=== PATIENT | female | born 1960 | race Caucasian/White ===

== ENCOUNTER → 2016-07-06 | Outpatient (CLI) | payer MEDICARE, MEDICAID ==
[~2016-07-06] MED LIST: ALBU8.5H2 IH; ALPR1TAB2 PO; ASP81TEC PO; CHLO500T2 PO; CYCL10TA9 PO; ERGO400T3 PO; FAMO20TA3 PO; FAMO20TA5 PO; FENO45CA PO; FENO48TA5 PO; FLUT1DIS26 IH; GABA600T2 PO; GBPN100C PO; GBPN300C PO; GLIP10TA13 PO; GLYB2.5T4 PO; GLYB5TAB6 PO; HYDR-34 PO; HYDR118S10 PO; INSU100I14 SQ; INSU100I29 SQ; LISI10TA PO; LORA10TA7 PO; MELO-195 PO; METF-380 PO; METH500T7 PO; MULT-608 PO; NF-PREM2.5 PO; NITR-65 PO; OMEG1CAP51 PO; OXYC-12 PO; OXYC-197 PO; PHEN-640 PO; SERT25TA PO; SERT25TA5 PO; SERT50TA2 PO; SIMV40TA4 PO; SIMV80TA3 PO; TRAM50TA2 PO; Z-PAK PO; pro air
--- OUTSIDE RECORDS SUMMARY | 2016-07-06 15:12 | XMS REPORT | Continuity of Care Document ---
Author Author [facility] Organization [facility] Address Unknown Phone Unavailable Care Team Providers Care Assistant Professor Of Marine Biology Name Role Phone Carrillo Galaviz PCP [phone] Source Comments Some departments are not documenting in the electronic medical record. If you do not see the information that you expected, contact Release of Information in the Health Information Management department at [phone] for further assistance in locating additional records.[facility] Active Allergies and Adverse Reactions No Known Allergies Current Medications Prescription Sig. Disp. Refills Start End Date Status Date ALPRAZolam (XANAX) 1 mg twice daily. 01/12/20 Active tablet 16 gabapentin (NEURONTIN) 02/06/20 Active 600 mg tablet 16 HYDROcodone/acetaminophen 01/12/20 Active (NORCO) 7.5/325 mg tablet 16 aspirin 81 mg chewable Chew 81 mg by mouth Active tablet daily. Take with food. famotidine (PEPCID) 20 mg Take 20 mg by mouth twice Active tablet daily. fenofibrate Take 48 mg by mouth Active nanocrystallized (TRICOR) daily. Take with food. 48 mg tablet fish oil /omega-3 fatty Take 1 Cap by mouth Active acids (SEA-OMEGA) daily. 340/1000 mg capsule glipiZIDE (GLUCOTROL) 10 Take 10 mg by mouth twice Active mg tablet daily. INSULIN DETEMIR (LEVEMIR Inject 50 Units under the Active SC) skin. lisinopril (PRINIVIL; Take 10 mg by mouth Active ZESTRIL) 10 mg tablet daily. meloxicam (MOBIC) 15 mg Take 15 mg by mouth Active tablet daily. metFORMIN (GLUCOPHAGE) Take 1,000 mg by mouth Active 1,000 mg tablet twice daily with meals. methocarbamol (ROBAXIN) Take 1,000 mg by mouth Active 500 mg tablet four times daily. MULTIVITAMIN PO Take by mouth. Active simvastatin (ZOCOR) 40 mg Take 80 mg by mouth at Active tablet bedtime daily. traMADol (ULTRAM) 50 mg Take 50 mg by mouth every Active tablet 6 hours as needed for Pain. ondansetron hcl (ZOFRAN) Take 8 mg by mouth every Active 8 mg tablet 8 hours as needed for Nausea or Vomiting. sertraline (ZOLOFT) 50 mg Take 50 mg by mouth Active tablet daily. CETIRIZINE HCL (ZYRTEC Take by mouth. Active PO) FLUTICASONE/SALMETEROL Inhale by mouth into the Active (ADVAIR DISKUS IN) lungs. ALBUTEROL IN Inhale by mouth into the Active lungs. INSULIN LISPRO (HUMALOG Inject under the skin. Active SC) insulin aspart (NOVOLOG Inject 10 Units under the Active FLEXPEN) 100 unit/mL skin three times daily injection PEN with meals. Active Problems Problem Noted Date Acute pain of right shoulder 06/14/2016 Osteoarthritis of spine with radiculopathy, cervical region 02/09/2016 Most Recent Encounters Date Type Specialty Providers Description 06/14/2016 Hospital Radiology Phyllis Perez MD Canceled (Error) Encounter 06/14/2016 Office Visit Neurosurgery Phyllis Perez MD Acute pain of right shoulder (Primary Dx); Osteoarthritis of spine with radiculopathy, cervical region 06/14/2016 Ancillary Radiology Outpatient, Radiologist Diagnosis unknown Orders (Primary Dx) Social History Tobacco Use Types Packs/Day Years Used Date Never Smoker Smokeless Tobacco: Never Used Alcohol Use Drinks/Week oz/Week Comments No 0 Standard 0.0 drinks or equivalent Last Filed Vital Signs Vital Sign Reading Time Taken Blood Pressure 153/76 06/14/2016 11:13 AM INSURANCE RISK ANALYST Pulse 97 06/14/2016 11:13 AM INSURANCE RISK ANALYST Temperature 36.7 C (98.1 F) 02/20/2016 7:38 AM CDT Respiratory Rate 20 06/14/2016 11:13 AM INSURANCE RISK ANALYST Height 1.626 m (5' 4") 06/14/2016 11:13 AM INSURANCE RISK ANALYST Weight 108.863 kg (240 lb) 06/14/2016 11:13 AM INSURANCE RISK ANALYST Body Mass Index 41.18 06/14/2016 11:13 AM INSURANCE RISK ANALYST Oxygen Saturation 97% 06/14/2016 11:13 AM INSURANCE RISK ANALYST Plan of Care Date Type Specialty Providers Description 03/14/2017 Appointment Phyllis Miller MD [address] [facility] [address] [place] [address] [phone] (Fax) Health Maintenance Due Date Last Done Comments Hepatitis C Screening 1959 Physical (Comprehensive) 1966 Exam Pertussis Vaccine 1970 Tetanus Vaccine 02/02/1976 Cervical Cancer Screening 02/02/1980 Breast Cancer Screening 1999 Colorectal Cancer 2009 Screening Influenza Vaccine 01/05/2016 Results from Last 3 Months Not on file
--- NOTE | 2016-07-06 16:30 | Diagnostic Imaging Report ---
PROCEDURE: MRI right joint upper extremity without contrast. TECHNIQUE: Multiplanar, multisequence non contrast-enhanced MRI of the right upper extremity was accomplished. INDICATION: Injury, shoulder pain. There are no previous studies available for comparison. FINDINGS: The study is less than optimal due to motion artifact. On the T2 fat-saturated coronal series, there is a linear area of increased signal extending through the anterior insertion of the rotator cuff. Most likely, this is related to a small tear. The supraspinatus muscle in this area is bunched but not fully retracted. There is also a broad area of increased signal within the substance of the midportion of the rotator cuff. This could be secondary to tendinosis alone. The possibility that this portion of the rotator cuff is partially torn as well should also be considered. There is hypertrophy of the acromioclavicular joint but there does not appear to be any significant narrowing of the outlet for the supraspinatus muscle. The biceps tendon and the subscapularis tendon are intact. There is a tear of the posterior labrum. The labrum itself is also thinned and most likely torn on a degenerative basis. There is a small joint effusion present. There is no abnormal signal arising from the osseous structures to suggest bone edema or a fracture. IMPRESSION: 1. The small linear area of altered signal along the anterior insertion of the rotator cuff is most likely due to a partial tear. There is also a broad less intense signal abnormality in the midportion of the rotator cuff and this may be secondary to a partial tear as well. The supraspinatus muscle is bunched but not retracted. 2. There is hypertrophy of the acromioclavicular joint but there does not appear to be any significant narrowing of the outlet for the supraspinatus muscle. 3. The labrum is torn posteriorly. There is also generalized thinning of the labrum and most likely the labrum is torn on a degenerative basis as well. 4. There is no sign of an acute bony abnormality. Dictated by: Dictated on workstation # [id number]
== END ==
LOC: RAD 15:08
PROVIDERS: ATTEND Orthopaedic Surgery
DX: S46.011A Strain of muscle(s) and tendon(s) of the rotator cuff of right shoulder, initial encounter (principal); X58.XXXA Exposure to other specified factors, initial encounter; Y99.8 Other external cause status
CPT/HCPCS: 73221

== ENCOUNTER 2016-07-18 08:59 | Outpatient (CLI) | payer MEDICARE, MEDICAID ==
[~2016-07-18] VITALS: Ht 162.6 cm; Wt 107.7 kg
[~2016-07-18 08:59] MED LIST changes: -ERGO400T3 PO; -FENO48TA5 PO; -INSU100I14 SQ; -OXYC-197 PO; -SERT25TA5 PO
--- OUTSIDE RECORDS SUMMARY | 2016-07-18 09:03 | XMS REPORT | Continuity of Care Document ---
Author Author [facility] Organization [facility] Address Unknown Phone Unavailable Care Team Providers Care Instructor Pilot Name Role Phone Carrillo Galaviz PCP [phone] Source Comments Some departments are not documenting in the electronic medical record. If you do not see the information that you expected, contact Release of Information in the Health Information Management department at [phone] for further assistance in locating additional records.[facility] Active Allergies and Adverse Reactions No [...] Taken Blood Pressure 153/76 06/14/2016 11:13 AM BRIAR WOOD SORTER Pulse 97 06/14/2016 11:13 AM BRIAR WOOD SORTER Temperature 36.7 C (98.1 F) 02/20/2016 7:38 AM CDT Respiratory Rate 20 06/14/2016 11:13 AM BRIAR WOOD SORTER Height 1.626 m (5' 4") 06/14/2016 11:13 AM BRIAR WOOD SORTER Weight 108.863 kg (240 lb) 06/14/2016 11:13 AM BRIAR WOOD SORTER Body Mass Index 41.18 06/14/2016 11:13 AM BRIAR WOOD SORTER Oxygen Saturation 97% 06/14/2016 11:13 AM BRIAR WOOD SORTER Plan of Care Date Type Specialty Providers Description 03/14/2017 Appointment Phyllis Miller MD [address] [facility] [address] [place] [address] [phone] (Fax) Health Maintenance Due Date Last Done Comments Hepatitis C Screening 1959 Physical (Comprehensive) 1966 Exam Pertussis Vaccine 1970 Tetanus Vaccine 02/02/1976 Cervical Cancer Screening 02/02/1980 Breast Cancer Screening 1999 Colorectal Cancer 2009 Screening Influenza Vaccine 01/05/2016 Results from Last 3 Months Not on file
[2016-07-18 09:08] VITALS: BP 143/81
[2016-07-18] MEDS ORDERED: SERT25TA5 PO (09:33)
[2016-07-18] MEDS ORDERED: INSU100I14 SQ (09:33)
[2016-07-18] MEDS ORDERED: FENO48TA5 PO (09:33)
[2016-07-18] MEDS ORDERED: ERGO400T3 PO (09:38)
== END 2016-07-18 09:20 | disposition home or self-care (01) ==
LOC: PREOP 08:59
PROVIDERS: ATTEND Orthopaedic Surgery
DX: Z01.818 Encounter for other preprocedural examination (principal); Z11.2 Encounter for screening for other bacterial diseases; S43.421A Sprain of right rotator cuff capsule, initial encounter; S43.431A Superior glenoid labrum lesion of right shoulder, initial encounter; W19.XXXA Unspecified fall, initial encounter; Y92.019 Unspecified place in single-family (private) house as the place of occurrence of the external cause; Y99.8 Other external cause status
CPT/HCPCS: 87081

== ENCOUNTER 2016-07-25 07:00 | Day surgery (SDC) | payer MEDICARE, MEDICAID ==
--- NOTE | 2016-07-24 07:49 | HISTORY AND PHYSICAL ---
DICTATING PHYSICIAN: Dr. Black DATE OF ADMISSION: 07/25/2016 Outpatient surgery for right shoulder arthroscopy, biceps tenotomy and rotator cuff repair. HISTORY: The patient is a 56-year-old female with complaints of pain in her right shoulder following a fall. She has undergone treatment with rest, activity modifications and anti-inflammatories without relief. She reports functional impairment. She underwent an MRI which showed a full thickness supraspinatus tear, as well as a posterior labral tear. Due to functional impairment and failure to improve with conservative measures, the patient elected to proceed with surgical intervention. REVIEW OF SYSTEMS: No chest pain, no shortness of breath. No dysuria. PAST MEDICAL HISTORY: 1. Back pain. 2. Diabetes mellitus. 3. Hyperlipidemia. 4. Hypertension. 5. Osteoarthritis. PAST SURGICAL HISTORY: 1. Lumbar spine. 2. Lumpectomy. 3. Total knee arthroplasty. 4. . FAMILY HISTORY: Ischemic heart disease and breast cancer. PRIMARY CARE PROVIDER: [facility]. MEDICATIONS: 1. Aspirin. 2. Fish oil. 3. Gabapentin. 4. Glyburide. 5. Lisinopril. 6. Meloxicam. 7. Metformin. 8. Prempro. 9. Simvastatin. 10. Trilipix. 11. Tramadol. 12. Zofran. 13. Fenofibrate. 14. Valium. 15. Levemir. 16. Albuterol. 17. Alprazolam. 18. Cetirizine. 19. Advair. 20. Glipizide. 21. Hydrocodone 22. NovoLog. 23. Humalog. 24. Methocarbamol. 25. Vitamins. 26. Sertraline. ALLERGIES: No known drug allergies. SOCIAL HISTORY: The patient denies alcohol and tobacco use. PHYSICAL EXAMINATION: The patient is well-developed, well-nourished, in no acute distress. HEENT: Normocephalic, atraumatic. Pupils are equal, round, and reactive to light. Oropharynx is clear. NECK: Supple. No lymphadenopathy. LUNGS: Clear to auscultation bilaterally. HEART: Regular rate and rhythm. ABDOMEN: Soft, nontender, nondistended. EXTREMITY EXAM: The right shoulder demonstrates no gross atrophy. No skin lesions are noted. She has intact sensation throughout her right upper extremity. She has a positive Neer and positive Wilhelm sign. She has weakness with abduction and external rotation. Active forward elevation is 170 degrees, external rotation is 70 degrees and internal rotation to L1. IMPRESSION: Right shoulder rotator cuff tear with associated labral tear. PLAN: Right shoulder arthroscopy and biceps tenotomy and rotator cuff repair. The risks, benefits, options, ramifications and recovery have been discussed at length with the patient and she understands and wishes to proceed. Job ID: [id number] Dictated Date: 07/17/2016 10:52:00 Office Services Associate Date: 07/17/2016 12:42:59/valdez
[~2016-07-25] VITALS: Ht 162.6 cm; Wt 107.7 kg
[2016-07-25 07:00] VITALS: BP 131/85
[~2016-07-25 07:00] MED LIST changes: +ERGO400T3 PO; +FENO48TA5 PO; +INSU100I14 SQ; +SERT25TA5 PO
--- NOTE | 2016-07-25 07:32 | Progress Note-Pre Operative ---
Pre-Operative Progress Note H&P Reviewed The H&P was reviewed, patient examined and no changes noted. Date H&P Reviewed: Jul 25, 2016 Time H&P Reviewed: 07:31 Pre-Operative Diagnosis: right rotator cuff and slap tears EDGARDO PADILLA MD Jul 25, 2016 07:32
--- NOTE | 2016-07-25 07:33 | Progress Note-Post Operative ---
Post-Operative Progess Note Gastroenterologist none Pre-Operative Diagnosis right rotator cuff and slap tears Post-Operative Diagnosis right rotator cuff tear right SLAP tear right shoulder labral tear and glenoid chondromalacia Post-Op Procedure Note Date of Procedure: Jul 25, 2016 Name of Procedure: right shoulder arthroscopic biceps tenotomy, labral debridement, chondroplasty of the glenoid, acromioplasty and open rotator cuff repair Anesthesia Type GETA Estimated blood loss (mL): minimal Packing: none Specimen(s) collected none EDGARDO PADILLA MD Jul 25, 2016 07:32
[2016-07-25] MEDS ORDERED: MIDAZOLAM 2 MG/2 ML (VERSED) VIAL ONE (07:42)
[2016-07-25] MEDS ORDERED: oxyCODONE/APAP 5/325MG (PERCOCET 5) TABLET PO PRN ×2 (07:45)
[2016-07-25] MEDS ORDERED: ceFAZolin 1 GM/NS 50 ML IVPB IV ONE ×2 (07:45)
[2016-07-25] MEDS ORDERED: ACETAMINOPHEN 325 MG TABLET/CAPLET (TYLENOL) PO PRN (07:45)
[2016-07-25] MEDS ORDERED: CATHETER FLUSH 10 ML SYR IV PRN (07:45)
[2016-07-25] MEDS ORDERED: ONDANSETRON 4 MG/2 ML (SDV) Z0FRAN IVP PRN (07:45)
[2016-07-25] MEDS ORDERED: BUPIVACAINE 0.25% 30 ML (SENSORCAINE) VIAL ONE (07:50)
[2016-07-25] MEDS ORDERED: morphine PF (DURAMORPH) 10 MG/10 ML AMP ONE (07:50)
[2016-07-25] MEDS: LACTATED RINGERS 1,000 ML IV PRN ×2 (07:57→09:45)
[2016-07-25] MEDS ORDERED: FAMOTIDINE 20MG/2ML IV (PEPCID) IV ONE (08:00)
[2016-07-25] MEDS ORDERED: LACTATED RINGERS 1,000 ML IV ONE ×2 (08:14→10:08)
[2016-07-25] MEDS ORDERED: proPOfol 200 MG/20 ML (DIPRIVAN) VIAL IV ONE (08:15)
[2016-07-25] MEDS ORDERED: fentaNYL INJECTION 100 MCG/2 ML AMP ONE (08:15)
[2016-07-25] MEDS ORDERED: LIDOCAINE PF 2% 10 ML (XYLOCAINE) AMP ONE (08:15)
[2016-07-25] MEDS ORDERED: ONDANSETRON 4 MG/2 ML (SDV) Z0FRAN ONE (08:15)
[2016-07-25] MEDS ORDERED: GLYCOPYRROLATE 0.2 MG/ML (ROBINUL) 2 ML VIAL ONE ×2 (08:16→09:58)
[2016-07-25] MEDS ORDERED: PHENYLEPHRINE INJ 10 MG/ML (NEO-SYNEPHRINE 1%) ONE (09:22)
[2016-07-25] MEDS ORDERED: SEVOFLURANE (ULTANE) 15 ML INHAL SOLN ONE (09:52)
[2016-07-25] MEDS ORDERED: NEOSTIGMINE (BLOXIVERZ ) 1 MG/1ML 10 ML VIAL ONE (09:58)
[2016-07-25] MEDS ORDERED: morphine INJ 10 MG/ML 1ML (SYR OR VIAL) IV PRN (10:30)
[2016-07-25] MEDS ORDERED: ONDANSETRON 4 MG/2 ML (SDV) Z0FRAN IV PRN (10:30)
[2016-07-25 11:10] VITALS: BP 112/68
[2016-07-25 11:40] VITALS: BP 120/66
--- NOTE | 2016-07-25 11:47 | OPERATIVE REPORT ---
PROCEDURE PHYSICIAN: EDGARDO PADILLA DATE OF PROCEDURE: 07/25/2016 PREOPERATIVE DIAGNOSIS: 1. Right shoulder rotator cuff tear. 2. Right shoulder SLAP tear. POSTOPERATIVE DIAGNOSIS: 1. Right shoulder rotator cuff tear. 2. Right shoulder SLAP tear. 3. Right shoulder labral tear. 4. Right shoulder chondromalacia of the glenoid PROCEDURE: 1. Right shoulder arthroscopic biceps tenotomy. 2. Right shoulder arthroscopic labral debridement. 3. Right shoulder arthroscopic chondroplasty of the glenoid/ 4. Right shoulder arthroscopic acromioplasty. 5. Right shoulder open rotator cuff repair. SURGEON: Wayne ANESTHESIA: General endotracheal plus interscalene nerve block by Katalina Aguayo CRNA ESTIMATED BLOOD LOSS: Minimal. DRAINS: None. COMPLICATIONS: None. POSTOPERATIVE PLAN: Passive range of motion for 4 weeks. The patient was transported to recovery room, awake, in stable condition. STATEMENT OF MEDICAL NECESSITY: The patient is a 56-year-old, [id number] female with complaints of right shoulder pain, worse with overhead activities. She had a fall and had increasing pain. She underwent injections without relief. An MRI revealed a full thickness supraspinatus tear and due to functional impairment and failure to improve with conservative measures, the patient elected to proceed with surgical intervention. Examination under anesthesia revealed range of motion forward elevation of 170 degrees, external rotation 80 degrees and internal rotation 70 degrees. Arthroscopic findings demonstrated type II SLAP tear. There was a flap tear of the labrum from 2 to 4 o'clock positions anteriorly. There was a grade 2 chondral flap on the inferior aspect of the glenoid in a 5 x 8 area. The humeral head demonstrated no gross chondral abnormalities. There was a 1 x 1 cm full thickness tear of the supraspinatus at the midportion of its insertion. The subacromial space demonstrated moderate bursitis with sloping of the anterior and lateral acromion. PROCEDURE: After risks and benefits of procedure were discussed and questions were answered an informed consent was signed and placed on chart. The operative site was confirmed in the preoperative holding area and initialed by the surgeon. The patient was then transported to the operating room and after adequate levels of regional plus general endotracheal anesthetic were obtained, a timeout was called confirming the operative site. Examination under anesthesia was performed with the above findings noted. The right shoulder and upper extremity were prepped and draped in the usual sterile fashion. The shoulder joint was injected with 20 mL of fluid as was the subacromial space. A standard posterior portal was placed. Under direct visualization anterior portal was created in the interval between biceps, subscapularis and glenoid. The biceps anchor was released and the stump was debrided with a shaver. The anterior labral flap was debrided with a shaver back to a stable edge. The chondromalacia on the glenoid was debrided back to a stable edge. No grade 4 changes were noted. The scope was then redirected into the subacromial space and a lateral portal was created. A bursectomy was performed and the acromion was planed a flat type I acromion. The lateral portal was then extended. The deltoid was split in line with its fibers leaving attached to the acromion. A bleeding bony bed was prepared just off the articular surface and a single corkscrew anchor was placed. A modified Tacho-Ananda repair was performed with excellent repair obtained. No undue tension was noted at the arm site. The wound was copiously irrigated. The deltoid was repaired in ejkb-[id number]-yfkf fashion using number 2 FiberWire in a [id number] interrupted fashion. The wound was further irrigated. 2-0 Vicryl was used to reapproximate subcutaneous tissue. The portal sites were closed with 4-0 nylon in simple interrupted fashion. Incision was closed with 4-0 nylon in running, alternating horizontal mattress fashion. A soft dressing and sling were applied. The patient was transported to the recovery room, awake, in stable condition. Job ID: [id number] Dictated Date: 07/25/2016 10:04:37 Cement Production Plant Operator Date: 07/25/2016 11:34:01 / valdez
--- NOTE | 2016-07-25 11:52 | Anesthesia-Peripheral Nerve Bl ---
Procedure Start/Stop Time Date of Procedure: Jul 25, 2016 Start Time: 07:59 Stop Time: 08:07 Peripheral Nerve Block Peripheral Nerve Blockade Risk/Benefits/Alternatives discussed, including IV injection leading to complications or seizures, nerve irritation or damage, pneumothorax, total spinal anesthesia, injection, and/or bleeding. Side Confirmed: RIGHT Indication: Surgical Anesthesia Specifically requested for management of pain by: Patient Condition Vital Signs Vital Signs Date Time Temp Pulse Resp B/P (MAP) Pulse Ox O2 Delivery O2 Flow Rate FiO2 07/25/16 07:00 95.9 95 18 131/85 96 Room Air Patient Condition: Awake Procedure Prepartation: Chlorhexidine Position: Supine Needle (s) Size: 22g 2" Technique: Nerve Stimulation mA: 0.45 Depth (cm): 2 Sedation Given: Midazolam Dose (mg/mcg): 2 Injectate: ropivacaine Concentration %: 0.5 Volume (ml): 30 Epinephrine used: No Narrative Injection was made incrementally with constant monitoring. Blood Aspirated: No Pain on injection noted: No Normal Resistance on injection: Yes Events Events: None:easy well tolerated Sucess: Complete Patient Conditon Post Peripheral Nerve Block Post Peripheral Nerve Block Vital Signs: Blood Pressure: Systolic Diastolic Heart Rate Blood Pressure Systolic: 131 Blood Pressure Diastolic: 85 Pulse Rate (adult): 95 LINSEY DAMIAN CRNA Jul 25, 2016 11:52
[2016-07-25 12:10] VITALS: BP 127/73
[2016-07-25] MEDS ORDERED: OXYC-197 PO (12:17)
[2016-07-25 12:55] VITALS: BP 127/73
--- OUTSIDE RECORDS SUMMARY | 2016-07-29 04:29 | XMS REPORT | Continuity of Care Document ---
Author Author [facility] Organization [facility] Address Unknown Phone Unavailable Care Team Providers Care Powerhouse Electrician Apprentice Name Role Phone Carrillo Galaviz PCP [phone] Source Comments Some departments are not documenting in the electronic medical record. If you do not see the information that you expected, contact Release of Information in the Health Information Management department at [phone] for further assistance in locating additional records.[facility] Active Allergies and Adverse Reactions No Known [...] Taken Blood Pressure 153/76 06/14/2016 11:13 AM BANJO REPAIRER Pulse 97 06/14/2016 11:13 AM BANJO REPAIRER Temperature 36.7 C (98.1 F) 02/20/2016 7:38 AM CDT Respiratory Rate 20 06/14/2016 11:13 AM BANJO REPAIRER Height 1.626 m (5' 4") 06/14/2016 11:13 AM BANJO REPAIRER Weight 108.863 kg (240 lb) 06/14/2016 11:13 AM BANJO REPAIRER Body Mass Index 41.18 06/14/2016 11:13 AM BANJO REPAIRER Oxygen Saturation 97% 06/14/2016 11:13 AM BANJO REPAIRER Plan of Care Health Maintenance Due Date Last Done Comments Hepatitis C Screening 1959 Physical (Comprehensive) 1966 Exam Pertussis Vaccine 1970 Tetanus Vaccine 02/02/1976 Cervical Cancer Screening 02/02/1980 Breast Cancer Screening 1999 Colorectal Cancer 2009 Screening Influenza Vaccine 01/04/2017 Results from Last 3 Months Not on file
--- OUTSIDE RECORDS SUMMARY | 2016-07-29 04:29 | XMS REPORT ---
Author Author AYLIN PURVIS Organization [employer] Address Unknown Phone Unavailable Care Team Providers Care Pulp Press Tender Name Role Phone AYLIN PURVIS CP Unavailable Allergies No Known Allergies Problems Problem Type Condition Code Onset Dates Condition Status Problem Diabetes type 2, controlled E11.9 Active Medications Medication Code System Code Instructions Start Date End Date Status Dosage Diflucan [facility] [address]-82 150 MG Orally once, repeat in one week Apr 13, 2015 1 tablet Results No Known Results Summary Purpose [employer] Submission
--- OUTSIDE RECORDS SUMMARY | 2016-07-29 04:35 | XMS REPORT ---
Author Author AYLIN PURVIS [facility] [employer] Address Unknown Phone Unavailable Care Team Providers Care Natural Resources Specialist Name Role Phone AYLIN PURVIS CP Unavailable Allergies, Adverse Reactions, Alerts Substance Reaction Event Type N.K.D.A. Info Not Available Non Drug Allergy Problems Problem Type Condition Code Onset Dates Condition Status Assessment Chronic fatigue R53.82 Active Assessment Diabetes type 2, uncontrolled E11.65 Active Problem Chronic fatigue R53.82 Active Problem Adjustment disorder with mixed anxiety and depressed mood F43.23 Active Problem Obstructive sleep apnea syndrome G47.33 Active Problem Diabetes type 2, controlled E11.9 Active Assessment Obstructive sleep apnea syndrome G47.33 Active Problem Type 2 diabetes mellitus without complications E11.9 Active Problem Diabetes type 2, uncontrolled E11.65 Active Medications Medication Code System Code Instructions Start Date End Date Status Dosage Lisinopril [facility] [address]-70 10 mg Apr 30, 2014 1 tablet by Oral route 1 time per day Aspirin [facility] [address]-71 81 MG Orally Once a day 1 tablet Fenofibrate [facility] [address]-99 48 MG Orally Once a day 1 tablet Fish Oil [facility] [address]-34 1000 MG Orally Once a day 2 Xanax [facility] [address]-69 1 MG Orally Twice a day November 17, 2015 1 tablet Cetirizine HCl [facility] [address]-62 10 mg Orally Once a day October 20, 2015 Feb 17, 2016 1 tablet Symbicort [facility] [address]-28 80-4.5 MCG/ACT Inhalation Twice a day 2 puffs Famotidine [facility] [address]-20 20 MG before meals July 23, 2014 1 tablet by Oral route 2 times per day Tramadol HCl [facility] [address]-32 50 MG Orally every 6 hrs 1 tablet as needed [place] [facility] [address]-21 7.5-325 MG Orally every 6 hrs August 05, 2015 1 tablet as needed Gabapentin [facility] [address]-07 600 MG Orally Three times a day Apr 08, 2015 1 capsule Levemir FlexTouch [facility] [address]-29 100 UNIT/ML Subcutaneous at bedtime 72 units Advair Diskus [facility] [address]-78 250-50 mcg/dose May 05, 2014 1 puffs by Inhalation route 2 times per day Flonase [facility] [address]-65 50 MCG/ACT Nasally Once a day Jan 17, 2015 1 spray in each nostril GlipiZIDE [facility] [address]-40 10 MG before meal July 09, 2014 1 tablet by Oral route 2 times per day Simvastatin [facility] [address]-90 80 MG Orally Jun 05, 2014 1 tablet by Oral route 1 time per day Metformin HCl [facility] [address]-88 1000 MG Orally Twice a day 1 tablet with meals Meloxicam [facility] [address]-22 15 MG Orally Once a day 1 tablet ProAir HFA [facility] [address]-25 90 mcg/actuation 4 times a day October 05, 2011 inhale 2 puffs by inhalation route every 6 hours as needed for 30 day(s) Methocarbamol [facility] [address]-68 500 MG Orally 2 times a day 2 Procedures Procedure Coding System Code Date [facility] VISIT ESTABLISHED PATIENT CPT-4 G0467 Feb 10, 2016 Office Visit, Est Pt., Level 3 CPT-4 76655 Feb 10, 2016 GLYCATED HEMOGLOBIN TEST CPT-4 46935 Feb 10, 2016 [facility] NOBLL Feb 10, 2016 VENIPUNCT, ROUTINE* CPT-4 29719 Feb 10, 2016 Vital Signs Date/Time: Feb 10, 2016 Cardiac Monitoring Heart Rate 92 bpm Weight 227 lbs Height 64 in BMI 38.96 Index Blood Pressure Diastolic 86 mmHg Blood Pressure Systolic 162 mmHg Results Name Result Date Reference Range Unit Abnormality Flag TSH ----TSH 1.810 74051559 0.450-4.500 uIU/mL CBC ----Basos 1 05038202 % ----MCV 81 57874971 79-97 fL ----Hematocrit 41.3 56848486 34.0-46.6 % ----Eos 3 52917737 % ----MCHC 31.7 11873751 31.5-35.7 g/dL ----Monocytes 9 87334767 % ----MCH 25.7 11888727 26.6-33.0 pg L ----Lymphs 38 83085280 % ----Eos (Absolute) 0.2 94004669 0.0-0.4 x10E3/uL ----WBC 6.2 34112913 3.4-10.8 x10E3/uL ----Monocytes(Absolute) 0.5 20701487 0.1-0.9 x10E3/uL ----Lymphs (Absolute) 2.3 21287466 0.7-3.1 x10E3/uL ----Hemoglobin 13.1 39682082 11.1-15.9 g/dL ----Neutrophils (Absolute) 3.0 07809705 1.4-7.0 x10E3/uL ----RBC 5.10 81183427 3.77-5.28 x10E6/uL ----Immature Grans (Abs) 0.0 39421478 0.0-0.1 x10E3/uL ----Immature Granulocytes 0 01742013 % ----Neutrophils 49 25353370 % ----Baso (Absolute) 0.0 49198588 0.0-0.2 x10E3/uL ----RDW 14.4 52681642 12.3-15.4 % ----Platelets 306 68513590 150-379 x10E3/uL A1C (IN HOUSE) ----A1C IN HOUSE 10.2 51915437 4.3 - 5.6 % ----Previous A1c 11.0 20160210 ----Lot [id number] ----Exp date [id number] ROUTINE VENIPUNCTURE VITAMIN D, 25-H ----Vitamin D, 25-Hydroxy 21.7 20160210 30.0-100.0 ng/mL L LIPID PANEL ----LDL Cholesterol Calc 78 85915945 0-99 mg/dL ----VLDL Cholesterol Yifan 27 08346564 5-40 mg/dL ----HDL Cholesterol 59 78061077 >39 mg/dL ----Triglycerides 136 01455150 0-149 mg/dL ----Cholesterol, Total 164 05216765 100-199 mg/dL CMP ----Creatinine, Serum 0.61 29271284 0.57-1.00 mg/dL ----BUN 17 17811885 6-24 mg/dL ----eGFR If Africn Am 116 97787370 >59 mL/min/1.73 ----eGFR If NonAfricn Am 101 86449498 >59 mL/min/1.73 ----Sodium, Serum 139 31212681 134-144 mmol/L ----BUN/Creatinine Ratio 28 20160210 9-23 H ----Chloride, Serum 99 48145696 97-108 mmol/L ----Potassium, Serum 4.5 34489456 3.5-5.2 mmol/L ----Carbon Dioxide, Total 24 20160210 18-29 mmol/L ----Protein, Total, Serum 6.6 36532123 6.0-8.5 g/dL ----Calcium, Serum 9.2 02264564 8.7-10.2 mg/dL ----Globulin, Total 2.1 06225683 1.5-4.5 g/dL ----Albumin, Serum 4.5 18763888 3.5-5.5 g/dL ----Bilirubin, Total 0.5 95649730 0.0-1.2 mg/dL ----Glucose, Serum 216 85490298 65-99 mg/dL H ----A/G Ratio 2.1 59179392 1.1-2.5 ----ALT (SGPT) 26 20160210 0-32 IU/L ----Alkaline Phosphatase, S 78 16848261 39-117 IU/L ----AST (SGOT) 26 20160210 0-40 IU/L Summary Purpose eClinicalWorks Submission
--- OUTSIDE RECORDS SUMMARY | 2016-07-29 04:35 | XMS REPORT | Continuity of Care Document ---
Author Author [facility] Address Unknown Phone Unavailable Allergies Active Description Code Type Severity Reaction Onset Reported/Identified Relationship to Patient Clinical Status Yes No Known Drug Allergies [id number] Drug Allergy Unknown N/ A 05/03/2011 Medications Problems Date Dx Coded Attending Type Code Diagnosis Diagnosed By 06/05/2006 Ot 715.96 06/05/2006 Ot V57.1 12/08/2007 AYLIN PURVIS APRN 413.9 Angina Nos 12/08/2007 KERNS DO, BESSIE K 413.9 Angina Nos 12/08/2007 KERNS DO, BESSIE K 413.9 Angina Nos 12/08/2007 413.9 Angina Nos 12/08/2007 413.9 Angina Nos 12/08/2007 413.9 Angina Nos 12/08/2007 413.9 Angina Nos 12/08/2007 413.9 Angina Nos 12/08/2007 413.9 Angina Nos 12/08/2007 413.9 Angina Nos 12/08/2007 413.9 Angina Nos 12/08/2007 413.9 Angina Nos 12/08/2007 AZUCENA POWELL APRN 413.9 Angina Nos 12/08/2007 KERNS DO, BESSIE K 413.9 Angina Nos 12/08/2007 KERNS DO, BESSIE K 413.9 Angina Nos 12/08/2007 AYLIN PURVIS APRN 413.9 Angina Nos 12/08/2007 KERNS DO, BESSIE K 413.9 Angina Nos 12/08/2007 AYLIN PURVIS APRN 413.9 Angina Nos 12/08/2007 KERNS DO, BESSIE K 413.9 Angina Nos 12/08/2007 AYLIN PURVIS APRN 413.9 Angina Nos 12/08/2007 AYLIN PURVIS APRN 413.9 Angina Nos 12/08/2007 KERNS DO, BESSIE K 413.9 Angina Nos 12/08/2007 KERNS DO, BESSIE K 413.9 Angina Nos 12/08/2007 MALLORIE BHAGAT MD 413.9 Angina Nos 12/08/2007 AYLIN PURVIS APRN 413.9 Angina Nos 12/08/2007 HYUN TUMBLING INSTRUCTOR, AYLIN T 413.9 Angina Nos 12/08/2007 HYUN TUMBLING INSTRUCTOR, AYLIN T 413.9 Angina Nos 12/08/2007 MADL TUMBLING INSTRUCTOR, DARIUSZ L 413.9 Angina Nos 12/08/2007 HYUN TUMBLING INSTRUCTOR, AYLIN T 413.9 Angina Nos 12/08/2007 MADL TUMBLING INSTRUCTOR, DARIUSZ L 413.9 Angina Nos 12/08/2007 HYUN TUMBLING INSTRUCTOR, AYLIN T 413.9 Angina Nos 12/08/2007 HYUN TUMBLING INSTRUCTOR, AYLIN T 413.9 Angina Nos 12/08/2007 HYUN TUMBLING INSTRUCTOR, AYLIN T 413.9 Angina Nos 12/08/2007 CARMEN TUMBLING INSTRUCTORLINSEY Montoya 413.9 Angina Nos 12/08/2007 HYUN TUMBLING INSTRUCTOR, AYLIN T 413.9 Angina Nos 12/08/2007 JESU BROWN MD 413.9 Angina Nos 12/08/2007 NEGRITA TUMBLING INSTRUCTOR, YUMI R 413.9 Angina Nos 12/08/2007 YASMIN OSUNA, DANIEL S 413.9 Angina Nos 12/08/2007 NEGRITA TUMBLING INSTRUCTOR, YUMI R 413.9 Angina Nos 12/08/2007 HYUN TUMBLING INSTRUCTOR, AYLIN T 413.9 Angina Nos 12/08/2007 YASMIN TUMBLING INSTRUCTOR, DANIEL S 413.9 Angina Nos 12/09/2007 AYLIN PURVIS APRN T 250.00 DIABETES II CONTROLLED 12/09/2007 AYLIN PURVIS APRN T 272.4 HYPERLIPIDEMIA UNSPECIFIED 12/09/2007 AYLIN PURVIS APRN 401.1 HYPERTENSION, BENIGN ESSENTIAL 12/09/2007 AYLIN PURVIS APRN 786.50 Chest Pain 12/09/2007 KERNS DO, BESSIE K 250.00 DIABETES II CONTROLLED 12/09/2007 KERNS DO, BESSIE K 272.4 HYPERLIPIDEMIA UNSPECIFIED 12/09/2007 KERNS DO, BESSIE K 401.1 HYPERTENSION, BENIGN ESSENTIAL 12/09/2007 KERNS DO, BESSIE K 786.50 Chest Pain 12/09/2007 KERNS DO, BESSIE K 250.00 DIABETES II CONTROLLED 12/09/2007 KERNS DO, BESSIE K 272.4 HYPERLIPIDEMIA UNSPECIFIED 12/09/2007 KERNS DO, BESSIE K 401.1 HYPERTENSION, BENIGN ESSENTIAL 12/09/2007 KERNS DO, BESSIE K 786.50 Chest Pain 12/09/2007 250.00 DIABETES II CONTROLLED 12/09/2007 272.4 HYPERLIPIDEMIA UNSPECIFIED 12/09/2007 401.1 HYPERTENSION, BENIGN ESSENTIAL 12/09/2007 786.50 Chest Pain 12/09/2007 250.00 DIABETES II CONTROLLED 12/09/2007 272.4 HYPERLIPIDEMIA UNSPECIFIED 12/09/2007 401.1 HYPERTENSION, BENIGN ESSENTIAL 12/09/2007 786.50 Chest Pain 12/09/2007 250.00 DIABETES II CONTROLLED 12/09/2007 272.4 HYPERLIPIDEMIA UNSPECIFIED 12/09/2007 401.1 HYPERTENSION, BENIGN ESSENTIAL 12/09/2007 786.50 Chest Pain 12/09/2007 250.00 DIABETES II CONTROLLED 12/09/2007 272.4 HYPERLIPIDEMIA UNSPECIFIED 12/09/2007 401.1 HYPERTENSION, BENIGN ESSENTIAL 12/09/2007 786.50 Chest Pain 12/09/2007 250.00 DIABETES II CONTROLLED 12/09/2007 272.4 HYPERLIPIDEMIA UNSPECIFIED 12/09/2007 401.1 HYPERTENSION, BENIGN ESSENTIAL 12/09/2007 786.50 Chest Pain 12/09/2007 250.00 DIABETES II CONTROLLED 12/09/2007 272.4 HYPERLIPIDEMIA UNSPECIFIED 12/09/2007 401.1 HYPERTENSION, BENIGN ESSENTIAL 12/09/2007 786.50 Chest Pain 12/09/2007 250.00 DIABETES II CONTROLLED 12/09/2007 272.4 HYPERLIPIDEMIA UNSPECIFIED 12/09/2007 401.1 HYPERTENSION, BENIGN ESSENTIAL 12/09/2007 786.50 Chest Pain 12/09/2007 250.00 DIABETES II CONTROLLED 12/09/2007 272.4 HYPERLIPIDEMIA UNSPECIFIED 12/09/2007 401.1 HYPERTENSION, BENIGN ESSENTIAL 12/09/2007 786.50 Chest Pain 12/09/2007 250.00 DIABETES II CONTROLLED 12/09/2007 272.4 HYPERLIPIDEMIA UNSPECIFIED 12/09/2007 401.1 HYPERTENSION, BENIGN ESSENTIAL 12/09/2007 786.50 Chest Pain 12/09/2007 ANDRE APRN, AZUCENA A 250.00 DIABETES II CONTROLLED 12/09/2007 ANDRE OSUNA AZUCENA A 272.4 HYPERLIPIDEMIA UNSPECIFIED 12/09/2007 ANDRE OSUNA AZUCENA A 401.1 HYPERTENSION, BENIGN ESSENTIAL 12/09/2007 ANDRE OSUNA AZUCENA A 786.50 Chest Pain 12/09/2007 KERNS DO, BESSIE K 250.00 DIABETES II CONTROLLED 12/09/2007 KERNS DO BESSIE K 272.4 HYPERLIPIDEMIA UNSPECIFIED 12/09/2007 KERNS DO, BESSIE K 401.1 HYPERTENSION, BENIGN ESSENTIAL 12/09/2007 KERNS DO, BESSIE K 786.50 Chest Pain 12/09/2007 KERNS DO, BESSIE K 250.00 DIABETES II CONTROLLED 12/09/2007 KERNS DO, BESSIE K 272.4 HYPERLIPIDEMIA UNSPECIFIED 12/09/2007 KERNS DO, BESSIE K 401.1 HYPERTENSION, BENIGN ESSENTIAL 12/09/2007 KERNS DO, BESSIE K 786.50 Chest Pain 12/09/2007 HYUN OSUNA AYLIN T 250.00 DIABETES II CONTROLLED 12/09/2007 HYUN TUMBLING INSTRUCTORAYLIN T 272.4 HYPERLIPIDEMIA UNSPECIFIED 12/09/2007 HYUN DE LOS SANTOSNAYLIN T 401.1 HYPERTENSION, BENIGN ESSENTIAL 12/09/2007 AYLIN PURVIS APRN T 786.50 Chest Pain 12/09/2007 KERNS DO, BESSIE K 250.00 DIABETES II CONTROLLED 12/09/2007 KERNS DO, BESSIE K 272.4 HYPERLIPIDEMIA UNSPECIFIED 12/09/2007 KERNS DO, BESSIE K 401.1 HYPERTENSION, BENIGN ESSENTIAL 12/09/2007 KERNS DO, BESSIE K 786.50 Chest Pain 12/09/2007 AYLIN PURVIS APRN T 250.00 DIABETES II CONTROLLED 12/09/2007 AYLIN PURVIS APRN T 272.4 HYPERLIPIDEMIA UNSPECIFIED 12/09/2007 AYLIN PURVIS APRN T 401.1 HYPERTENSION, BENIGN ESSENTIAL 12/09/2007 AYLIN PURVIS APRN T 786.50 Chest Pain 12/09/2007 KERNS DO, BESSIE K 250.00 DIABETES II CONTROLLED 12/09/2007 KERNS DO, BESSIE K 272.4 HYPERLIPIDEMIA UNSPECIFIED 12/09/2007 KERNS DO, BESSIE K 401.1 HYPERTENSION, BENIGN ESSENTIAL 12/09/2007 KERNS DO, BESSIE K 786.50 Chest Pain 12/09/2007 AYLIN PURVIS APRN T 250.00 DIABETES II CONTROLLED 12/09/2007 HYUN DE LOS SANTOSNAYLIN T 272.4 HYPERLIPIDEMIA UNSPECIFIED 12/09/2007 AYLIN PURVIS APRN T 401.1 HYPERTENSION, BENIGN ESSENTIAL 12/09/2007 AYLIN PURVIS APRN T 786.50 Chest Pain 12/09/2007 AYLIN PURVIS APRN T 250.00 DIABETES II CONTROLLED 12/09/2007 AYLIN PURVIS APRN T 272.4 HYPERLIPIDEMIA UNSPECIFIED 12/09/2007 AYLIN PURVIS APRN T 401.1 HYPERTENSION, BENIGN ESSENTIAL 12/09/2007 AYLIN PURVIS APRN 786.50 Chest Pain 12/09/2007 KERNS DO, BESSIE K 250.00 DIABETES II CONTROLLED 12/09/2007 KERNS DO, BESSIE K 272.4 HYPERLIPIDEMIA UNSPECIFIED 12/09/2007 KERNS DO, BESSIE K 401.1 HYPERTENSION, BENIGN ESSENTIAL 12/09/2007 KERNS DO, BESISE K 786.50 Chest Pain 12/09/2007 KERNS DO, BESSIE K 250.00 DIABETES II CONTROLLED 12/09/2007 KERNS DO, BESSIE K 272.4 HYPERLIPIDEMIA UNSPECIFIED 12/09/2007 KERNS DO, BESSIE K 401.1 HYPERTENSION, BENIGN ESSENTIAL 12/09/2007 KERNS DO, BESSIE K 786.50 Chest Pain 12/09/2007 MALLORIE BHAGAT MD 250.00 DIABETES II CONTROLLED 12/09/2007 MALLORIE BHAGAT MD 272.4 HYPERLIPIDEMIA UNSPECIFIED 12/09/2007 MALLORIE BHAGAT MD 401.1 HYPERTENSION, BENIGN ESSENTIAL 12/09/2007 MALLORIE BHAGAT MD 786.50 Chest Pain 12/09/2007 AYLIN PURVIS APRN 250.00 DIABETES II CONTROLLED 12/09/2007 AYLIN PURVIS APRN 272.4 HYPERLIPIDEMIA UNSPECIFIED 12/09/2007 AYLIN PURVIS APRN 401.1 HYPERTENSION, BENIGN ESSENTIAL 12/09/2007 AYLIN PURVIS APRN 786.50 Chest Pain 12/09/2007 AYLIN PURVIS APRN 250.00 DIABETES II CONTROLLED 12/09/2007 AYLIN PURVIS APRN 272.4 HYPERLIPIDEMIA UNSPECIFIED 12/09/2007 AYLIN PURVIS APRN 401.1 HYPERTENSION, BENIGN ESSENTIAL 12/09/2007 AYLIN PURVSI APRN 786.50 Chest Pain 12/09/2007 AYLIN PURVIS APRN 250.00 DIABETES II CONTROLLED 12/09/2007 AYLIN PURVIS APRN T 272.4 HYPERLIPIDEMIA UNSPECIFIED 12/09/2007 AYLIN PURVIS APRN 401.1 HYPERTENSION, BENIGN ESSENTIAL 12/09/2007 AYLIN PURVIS APRN T 786.50 Chest Pain 12/09/2007 MADL TUMBLING INSTRUCTOR, DARIUSZ L 250.00 DIABETES II CONTROLLED 12/09/2007 MADL TUMBLING INSTRUCTOR, DARIUSZ L 272.4 HYPERLIPIDEMIA UNSPECIFIED 12/09/2007 MADL TUMBLING INSTRUCTOR, DARIUSZ L 401.1 HYPERTENSION, BENIGN ESSENTIAL 12/09/2007 MADL TUMBLING INSTRUCTOR, DARIUSZ L 786.50 Chest Pain 12/09/2007 AYLIN PURVIS APRN T 250.00 DIABETES II CONTROLLED 12/09/2007 AYLIN PURVIS APRN T 272.4 HYPERLIPIDEMIA UNSPECIFIED 12/09/2007 HYUN DE LOS SANTOSNAYLIN T 401.1 HYPERTENSION, BENIGN ESSENTIAL 12/09/2007 HYUN TUMBLING INSTRUCTORAYLIN T 786.50 Chest Pain 12/09/2007 MADL TUMBLING INSTRUCTOR, DARIUSZ L 250.00 DIABETES II CONTROLLED 12/09/2007 MADL TUMBLING INSTRUCTOR, DARIUSZ L 272.4 HYPERLIPIDEMIA UNSPECIFIED 12/09/2007 MADL TUMBLING INSTRUCTOR, DARIUSZ L 401.1 HYPERTENSION, BENIGN ESSENTIAL 12/09/2007 MADL TUMBLING INSTRUCTOR, DARIUSZ L 786.50 Chest Pain 12/09/2007 AYLIN PURVIS APRN T 250.00 DIABETES II CONTROLLED 12/09/2007 AYLIN PURVIS APRN 272.4 HYPERLIPIDEMIA UNSPECIFIED 12/09/2007 AYLIN PURVIS APRN 401.1 HYPERTENSION, BENIGN ESSENTIAL 12/09/2007 AYLIN PURVIS APRN 786.50 Chest Pain 12/09/2007 AYLIN PURVIS APRN 250.00 DIABETES II CONTROLLED 12/09/2007 AYLIN PURVIS APRN 272.4 HYPERLIPIDEMIA UNSPECIFIED 12/09/2007 AYLIN PURVIS APRN 401.1 HYPERTENSION, BENIGN ESSENTIAL 12/09/2007 AYLIN PURIVS APRN 786.50 Chest Pain 12/09/2007 AYLIN PURVIS APRN 250.00 DIABETES II CONTROLLED 12/09/2007 AYLNI PURVIS APRN 272.4 HYPERLIPIDEMIA UNSPECIFIED 12/09/2007 AYLIN PURVIS APRN 401.1 HYPERTENSION, BENIGN ESSENTIAL 12/09/2007 AYLIN PURVIS APRN T 786.50 Chest Pain 12/09/2007 LINSEY MORALES APRN 250.00 DIABETES II CONTROLLED 12/09/2007 LINSEY MORALES APRN 272.4 HYPERLIPIDEMIA UNSPECIFIED 12/09/2007 LINSEY MORALES APRN 401.1 HYPERTENSION, BENIGN ESSENTIAL 12/09/2007 LINSEY MORALES APRN D 786.50 Chest Pain 12/09/2007 AYLIN PURVIS APRN T 250.00 DIABETES II CONTROLLED 12/09/2007 AYLIN PURVIS APRN 272.4 HYPERLIPIDEMIA UNSPECIFIED 12/09/2007 AYLIN PURVIS APRN 401.1 HYPERTENSION, BENIGN ESSENTIAL 12/09/2007 AYLIN PURVIS APRN T 786.50 Chest Pain 12/09/2007 KEVIN MICHELLE, JESU 250.00 DIABETES II CONTROLLED 12/09/2007 KEVIN MICHELLE, JESU 272.4 HYPERLIPIDEMIA UNSPECIFIED 12/09/2007 KEVIN MICHELLE, JESU 401.1 HYPERTENSION, BENIGN ESSENTIAL 12/09/2007 KEVIN MICHELLE, JESU 786.50 Chest Pain 12/09/2007 NEGRITA TUMBLING INSTRUCTOR, YUMI R 250.00 DIABETES II CONTROLLED 12/09/2007 NEGRITA TUMBLING INSTRUCTOR, YUMI R 272.4 HYPERLIPIDEMIA UNSPECIFIED 12/09/2007 NEGRITA TUMBLING INSTRUCTOR, YUMI R 401.1 HYPERTENSION, BENIGN ESSENTIAL 12/09/2007 NEGRITA TUMBLING INSTRUCTOR, YUMI R 786.50 Chest Pain 12/09/2007 YASMIN TUMBLING INSTRUCTOR, DANIEL S 250.00 DIABETES II CONTROLLED 12/09/2007 YASMIN TUMBLING INSTRUCTOR, DANIEL S 272.4 HYPERLIPIDEMIA UNSPECIFIED 12/09/2007 YASMIN TUMBLING INSTRUCTOR, DANIEL S 401.1 HYPERTENSION, BENIGN ESSENTIAL 12/09/2007 YASMIN TUMBLING INSTRUCTOR, DANIEL S 786.50 Chest Pain 12/09/2007 NEGRITA TUMBLING INSTRUCTOR, YUMI R 250.00 DIABETES II CONTROLLED 12/09/2007 NEGRITA TUMBLING INSTRUCTOR, YUMI R 272.4 HYPERLIPIDEMIA UNSPECIFIED 12/09/2007 NEGRITA TUMBLING INSTRUCTOR, YUMI R 401.1 HYPERTENSION, BENIGN ESSENTIAL 12/09/2007 NEGRITA TUMBLING INSTRUCTOR, YUMI R 786.50 Chest Pain 12/09/2007 AYLIN PURVIS APRN T 250.00 DIABETES II CONTROLLED 12/09/2007 AYLIN PURVIS APRN 272.4 HYPERLIPIDEMIA UNSPECIFIED 12/09/2007 AYLIN PURVIS APRN 401.1 HYPERTENSION, BENIGN ESSENTIAL 12/09/2007 AYLIN PURVIS APRN 786.50 Chest Pain 12/09/2007 YASMIN OSUNA, DANIEL S 250.00 DIABETES II CONTROLLED 12/09/2007 YASMIN OSUNA, DANIEL S 272.4 HYPERLIPIDEMIA UNSPECIFIED 12/09/2007 YASMIN OSUNA, DANIEL S 401.1 HYPERTENSION, BENIGN ESSENTIAL 12/09/2007 YASMIN OSUNA, DANIEL S 786.50 Chest Pain 04/17/2008 AYLIN PURVIS APRN 461.9 Sinusitis Acute 04/17/2008 AYLIN PURVIS APRN 465.9 Upper Respiratory Infection 04/17/2008 AYLIN PURVIS APRN 786.2 Cough 04/17/2008 KERNS DO, BESSIE K 461.9 Sinusitis Acute 04/17/2008 KERNS DO, BESSIE K 465.9 Upper Respiratory Infection 04/17/2008 KERNS DO, BESSIE K 786.2 Cough 04/17/2008 KERNS DO, BESSIE K 461.9 Sinusitis Acute 04/17/2008 KERNS DO, BESSIE K 465.9 Upper Respiratory Infection 04/17/2008 KERNS DO, BESSIE K 786.2 Cough 04/17/2008 461.9 Sinusitis Acute 04/17/2008 465.9 Upper Respiratory Infection 04/17/2008 786.2 Cough 04/17/2008 461.9 Sinusitis Acute 04/17/2008 465.9 Upper Respiratory Infection 04/17/2008 786.2 Cough 04/17/2008 461.9 Sinusitis Acute 04/17/2008 465.9 Upper Respiratory Infection 04/17/2008 786.2 Cough 04/17/2008 461.9 Sinusitis Acute 04/17/2008 465.9 Upper Respiratory Infection 04/17/2008 786.2 Cough 04/17/2008 461.9 Sinusitis Acute 04/17/2008 465.9 Upper Respiratory Infection 04/17/2008 786.2 Cough 04/17/2008 461.9 Sinusitis Acute 04/17/2008 465.9 Upper Respiratory Infection 04/17/2008 786.2 Cough 04/17/2008 461.9 Sinusitis Acute 04/17/2008 465.9 Upper Respiratory Infection 04/17/2008 786.2 Cough 04/17/2008 461.9 Sinusitis Acute 04/17/2008 465.9 Upper Respiratory Infection 04/17/2008 786.2 Cough 04/17/2008 461.9 Sinusitis Acute 04/17/2008 465.9 Upper Respiratory Infection 04/17/2008 786.2 Cough 04/17/2008 ANDRE TUMBLING INSTRUCTOR, AZUCENA A 461.9 Sinusitis Acute 04/17/2008 ANDRE TUMBLING INSTRUCTOR AZUCENA A 465.9 Upper Respiratory Infection 04/17/2008 ANDRE TUMBLING INSTRUCTOR, AZUCENA A 786.2 Cough 04/17/2008 KERNS DO BESSIE K 461.9 Sinusitis Acute 04/17/2008 KERNS DO, BESSIE K 465.9 Upper Respiratory Infection 04/17/2008 KERNS DO, BESSIE K 786.2 Cough 04/17/2008 KERNS DO, BESSIE K 461.9 Sinusitis Acute 04/17/2008 KERNS DO, BESSIE K 465.9 Upper Respiratory Infection 04/17/2008 KERNS DO, BESSIE K 786.2 Cough 04/17/2008 AYLIN PURVIS APRN T 461.9 Sinusitis Acute 04/17/2008 AYLIN PURVIS APRN T 465.9 Upper Respiratory Infection 04/17/2008 AYLIN PURVIS APRN T 786.2 Cough 04/17/2008 KERNS DO, BESSIE K 461.9 Sinusitis Acute 04/17/2008 KERNS DO, BESSIE K 465.9 Upper Respiratory Infection 04/17/2008 KERNS DO, BESSIE K 786.2 Cough 04/17/2008 AYLIN PURVIS APRN T 461.9 Sinusitis Acute 04/17/2008 AYLIN PURVIS APRN T 465.9 Upper Respiratory Infection 04/17/2008 AYLIN PURVIS APRN T 786.2 Cough 04/17/2008 KERNS DO, BESSIE K 461.9 Sinusitis Acute 04/17/2008 KERNS DO, BESSIE K 465.9 Upper Respiratory Infection 04/17/2008 KERNS DO, BESSIE K 786.2 Cough 04/17/2008 AYLIN PURVIS APRN T 461.9 Sinusitis Acute 04/17/2008 AYLIN PURVIS APRN T 465.9 Upper Respiratory Infection 04/17/2008 AYLIN PURVIS APRN T 786.2 Cough 04/17/2008 AYLIN PURVIS APRN T 461.9 Sinusitis Acute 04/17/2008 AYLIN PURVIS APRN T 465.9 Upper Respiratory Infection 04/17/2008 AYLIN PURVIS APRN T 786.2 Cough 04/17/2008 KERNS DO, BESSIE K 461.9 Sinusitis Acute 04/17/2008 KERNS DO, BESSIE K 465.9 Upper Respiratory Infection 04/17/2008 KERNS DO, BESSIE K 786.2 Cough 04/17/2008 KERNS DO, BESSIE K 461.9 Sinusitis Acute 04/17/2008 KERNS DO, BESSIE K 465.9 Upper Respiratory Infection 04/17/2008 KERNS DO, BESSIE K 786.2 Cough 04/17/2008 MALLORIE BHAGAT MD 461.9 Sinusitis Acute 04/17/2008 MALLORIE BHAGAT MD 465.9 Upper Respiratory Infection 04/17/2008 MALLORIE BHAGAT MD 786.2 Cough 04/17/2008 HYUN TUMBLING INSTRUCTOR, AYLIN T 461.9 Sinusitis Acute 04/17/2008 HYUN TUMBLING INSTRUCTOR, AYLIN T 465.9 Upper Respiratory Infection 04/17/2008 HYUN TUMBLING INSTRUCTOR, AYLIN T 786.2 Cough 04/17/2008 HYUN TUMBLING INSTRUCTOR, AYLIN T 461.9 Sinusitis Acute 04/17/2008 HYUN TUMBLING INSTRUCTOR, AYLIN T 465.9 Upper Respiratory Infection 04/17/2008 HYUN TUMBLING INSTRUCTOR, AYLIN T 786.2 Cough 04/17/2008 HYUN TUMBLING INSTRUCTOR, AYLIN T 461.9 Sinusitis Acute 04/17/2008 HYUN TUMBLING INSTRUCTOR, AYLIN T 465.9 Upper Respiratory Infection 04/17/2008 HYUN TUMBLING INSTRUCTOR, AYLIN T 786.2 Cough 04/17/2008 MADL TUMBLING INSTRUCTOR, DARIUSZ L 461.9 Sinusitis Acute 04/17/2008 MADL TUMBLING INSTRUCTOR, DARIUSZ L 465.9 Upper Respiratory Infection 04/17/2008 MADL TUMBLING INSTRUCTOR, DARIUSZ L 786.2 Cough 04/17/2008 HYUN DE LOS SANTOSN AYLIN T 461.9 Sinusitis Acute 04/17/2008 HYUN TUMBLING INSTRUCTOR, AYLIN T 465.9 Upper Respiratory Infection 04/17/2008 HYUN TUMBLING INSTRUCTOR, AYLIN T 786.2 Cough 04/17/2008 MADL TUMBLING INSTRUCTOR, DARIUSZ L 461.9 Sinusitis Acute 04/17/2008 MADL TUMBLING INSTRUCTOR, DARIUSZ L 465.9 Upper Respiratory Infection 04/17/2008 MADL TUMBLING INSTRUCTOR, DARIUSZ L 786.2 Cough 04/17/2008 HYUN TUMBLING INSTRUCTOR, AYLIN T 461.9 Sinusitis Acute 04/17/2008 HYUN DE LOS SANTOSN, AYLIN T 465.9 Upper Respiratory Infection 04/17/2008 HYUN TUMBLING INSTRUCTOR AYLIN T 786.2 Cough 04/17/2008 HYUN TUMBLING INSTRUCTOR, AYLIN T 461.9 Sinusitis Acute 04/17/2008 HYUN TUMBLING INSTRUCTOR, AYLIN T 465.9 Upper Respiratory Infection 04/17/2008 HYUN TUMBLING INSTRUCTOR, AYLIN T 786.2 Cough 04/17/2008 HYUN TUMBLING INSTRUCTOR, AYLIN T 461.9 Sinusitis Acute 04/17/2008 HYUN TUMBLING INSTRUCTOR, AYLIN T 465.9 Upper Respiratory Infection 04/17/2008 HYUN DE LOS SANTOSN, AYLIN T 786.2 Cough 04/17/2008 LINSEY MORALES APRN 461.9 Sinusitis Acute 04/17/2008 MORALES TUMBLING INSTRUCTOR, LINSEY D 465.9 Upper Respiratory Infection 04/17/2008 CARMEN OSUNA, LINSEY D 786.2 Cough 04/17/2008 AYLIN PURVIS APRN T 461.9 Sinusitis Acute 04/17/2008 AYLIN PURVIS APRN T 465.9 Upper Respiratory Infection 04/17/2008 AYLIN PURVIS APRN T 786.2 Cough 04/17/2008 KEVIN MICHELLE, JESU 461.9 Sinusitis Acute 04/17/2008 KEVIN MICHELLE, JESU 465.9 Upper Respiratory Infection 04/17/2008 KEVIN MICHELLE, JESU 786.2 Cough 04/17/2008 NEGRITA TUMBLING INSTRUCTOR, YUMI R 461.9 Sinusitis Acute 04/17/2008 NEGRITA TUMBLING INSTRUCTOR, YUMI R 465.9 Upper Respiratory Infection 04/17/2008 NEGRITA TUMBLING INSTRUCTOR, YUMI R 786.2 Cough 04/17/2008 YASMIN OSUNA, DANIEL S 461.9 Sinusitis Acute 04/17/2008 YASMIN OSUNA, DANIEL S 465.9 Upper Respiratory Infection 04/17/2008 YASMIN OSUNA DANIEL S 786.2 Cough 04/17/2008 NEGRITA TUMBLING INSTRUCTOR, YUMI R 461.9 Sinusitis Acute 04/17/2008 NEGRITA TUMBLING INSTRUCTOR, YUMI R 465.9 Upper Respiratory Infection 04/17/2008 NEGRITA TUMBLING INSTRUCTOR, YUMI R 786.2 Cough 04/17/2008 AYLIN PURVIS APRN T 461.9 Sinusitis Acute 04/17/2008 AYLIN PURVIS APRN T 465.9 Upper Respiratory Infection 04/17/2008 AYLIN PURVIS APRN T 786.2 Cough 04/17/2008 YASMIN OSUNA DANIEL S 461.9 Sinusitis Acute 04/17/2008 YASMIN OSUNA, DANIEL S 465.9 Upper Respiratory Infection 04/17/2008 YASMIN OSUNA, DANIEL S 786.2 Cough 07/06/2008 AYLIN PURVIS APRN 599.0 Urinary Tract Infection 07/06/2008 AYLIN PURVIS APRN 724.2 lower back pain 07/06/2008 KERNS DO, BESSIE K 599.0 Urinary Tract Infection 07/06/2008 KERNS DO, BESSIE K 724.2 lower back pain 07/06/2008 KERNS DO, BESSIE K 599.0 Urinary Tract Infection 07/06/2008 KERNS DO, BESSIE K 724.2 lower back pain 07/06/2008 599.0 Urinary Tract Infection 07/06/2008 724.2 lower back pain 07/06/2008 599.0 Urinary Tract Infection 07/06/2008 724.2 lower back pain 07/06/2008 599.0 Urinary Tract Infection 07/06/2008 724.2 lower back pain 07/06/2008 599.0 Urinary Tract Infection 07/06/2008 724.2 lower back pain 07/06/2008 599.0 Urinary Tract Infection 07/06/2008 724.2 lower back pain 07/06/2008 599.0 Urinary Tract Infection 07/06/2008 724.2 lower back pain 07/06/2008 599.0 Urinary Tract Infection 07/06/2008 724.2 lower back pain 07/06/2008 599.0 Urinary Tract Infection 07/06/2008 724.2 lower back pain 07/06/2008 599.0 Urinary Tract Infection 07/06/2008 724.2 lower back pain 07/06/2008 ANDRE OSUNA AZUCENA A 599.0 Urinary Tract Infection 07/06/2008 ANDREHUMBERTO OSUNA AZUCENA A 724.2 lower back pain 07/06/2008 KERNS DO, BESSIE K 599.0 Urinary Tract Infection 07/06/2008 KERNS DO, BESSIE K 724.2 lower back pain 07/06/2008 KERNS DO, BESSIE K 599.0 Urinary Tract Infection 07/06/2008 KERNS DO, BESSIE K 724.2 lower back pain 07/06/2008 AYLIN PURVIS APRN 599.0 Urinary Tract Infection 07/06/2008 AYLIN PURVIS APRN 724.2 lower back pain 07/06/2008 KERNS DO, BESSIE K 599.0 Urinary Tract Infection 07/06/2008 KERNS DO, BESSIE K 724.2 lower back pain 07/06/2008 AYLIN PURVIS APRN 599.0 Urinary Tract Infection 07/06/2008 AYLIN PRUVIS APRN 724.2 lower back pain 07/06/2008 KERNS DO, BESSIE K 599.0 Urinary Tract Infection 07/06/2008 KERNS DO, BESSIE K 724.2 lower back pain 07/06/2008 HYUN TUMBLING INSTRUCTOR, AYLIN T 599.0 Urinary Tract Infection 07/06/2008 AYLIN PURVIS APRN T 724.2 lower back pain 07/06/2008 AYLIN PURVIS APRN T 599.0 Urinary Tract Infection 07/06/2008 AYLIN PURVIS APRN T 724.2 lower back pain 07/06/2008 KERNS DO, BESSIE K 599.0 Urinary Tract Infection 07/06/2008 KERNS DO, BESSIE K 724.2 lower back pain 07/06/2008 KERNS DO, BESSIE K 599.0 Urinary Tract Infection 07/06/2008 KERNS DO, BESSIE K 724.2 lower back pain 07/06/2008 MALLORIE BHAGAT MD 599.0 Urinary Tract Infection 07/06/2008 MALLORIE BHAGAT MD 724.2 lower back pain 07/06/2008 AYLIN PURVIS APRN T 599.0 Urinary Tract Infection 07/06/2008 AYLIN PURVIS APRN T 724.2 lower back pain 07/06/2008 AYLIN PURVIS APRN 599.0 Urinary Tract Infection 07/06/2008 AYLIN PURVIS APRN T 724.2 lower back pain 07/06/2008 AYLIN PURVIS APRN T 599.0 Urinary Tract Infection 07/06/2008 AYLIN PURVIS APRN T 724.2 LOWER BACK PAIN 07/06/2008 MADMaine TUMBLING INSTRUCTOR, DARIUSZ L 599.0 Urinary Tract Infection 07/06/2008 MADL TUMBLING INSTRUCTOR, DARIUSZ L 724.2 LOWER BACK PAIN 07/06/2008 AYLIN PURVIS APRN T 599.0 Urinary Tract Infection 07/06/2008 AYLIN PURVIS APRN T 724.2 LOWER BACK PAIN 07/06/2008 MADL TUMBLING INSTRUCTOR, DARIUSZ L 599.0 Urinary Tract Infection 07/06/2008 MADL TUMBLING INSTRUCTOR, DARIUSZ L 724.2 LOWER BACK PAIN 07/06/2008 AYLIN PURVIS APRN T 599.0 Urinary Tract Infection 07/06/2008 AYLIN PURVIS APRN T 724.2 LOWER BACK PAIN 07/06/2008 AYLIN PURVIS APRN T 599.0 Urinary Tract Infection 07/06/2008 AYLIN PURVIS APRN T 724.2 LOWER BACK PAIN 07/06/2008 AYLIN PURVIS APRN T 599.0 Urinary Tract Infection 07/06/2008 AYLIN PURVIS APRN T 724.2 LOWER BACK PAIN 07/06/2008 MORALES TUMBLING INSTRUCTOR, LINSEY D 599.0 Urinary Tract Infection 07/06/2008 MORALES TUMBLING INSTRUCTOR, LINSEY D 724.2 LOWER BACK PAIN 07/06/2008 HYUN OSUNA, AYLIN T 599.0 Urinary Tract Infection 07/06/2008 HYUN OSUNA, AYLIN T 724.2 LOWER BACK PAIN 07/06/2008 KEVIN MICHELLE, JESU 599.0 Urinary Tract Infection 07/06/2008 KEVIN MICHELLE, JESU 724.2 LOWER BACK PAIN 07/06/2008 NEGRITA TUMBLING INSTRUCTOR, YUMI R 599.0 Urinary Tract Infection 07/06/2008 NEGRITA TUMBLING INSTRUCTOR, YUMI R 724.2 LOWER BACK PAIN 07/06/2008 AYSMIN TUMBLING INSTRUCTOR, DANIEL S 599.0 Urinary Tract Infection 07/06/2008 YASMIN TUMBLING INSTRUCTOR, DANIEL S 724.2 LOWER BACK PAIN 07/06/2008 NEGRITA TUMBLING INSTRUCTOR, YUMI R 599.0 Urinary Tract Infection 07/06/2008 NEGRITA DE LOS SANTOSN, YUMI R 724.2 LOWER BACK PAIN 07/06/2008 AYLIN PURVIS APRN T 599.0 Urinary Tract Infection 07/06/2008 HYUN OSUNA, AYLIN T 724.2 LOWER BACK PAIN 07/06/2008 YASMINKENISHA OSUNA, DANIEL S 599.0 Urinary Tract Infection 07/06/2008 YASMIN DE LOS SANTOSN, DANIEL S 724.2 LOWER BACK PAIN 01/13/2009 AYLIN PURVIS APRN 487.1 Influenza 01/13/2009 BESSIE KERNS DO 487.1 Influenza 01/13/2009 BESSIE KERNS DO 487.1 Influenza 01/13/2009 487.1 Influenza 01/13/2009 487.1 Influenza 01/13/2009 487.1 Influenza 01/13/2009 487.1 Influenza 01/13/2009 487.1 Influenza 01/13/2009 487.1 Influenza 01/13/2009 487.1 Influenza 01/13/2009 487.1 Influenza 01/13/2009 487.1 Influenza 01/13/2009 AZUCENA POWELL APRN 487.1 Influenza 01/13/2009 BESSIE KERNS DO 487.1 Influenza 01/13/2009 EKRNS DO, BESSIE K 487.1 Influenza 01/13/2009 HYUN TUMBLING INSTRUCTOR, AYLIN T 487.1 Influenza 01/13/2009 KERNS DO, BESSIE K 487.1 Influenza 01/13/2009 HYUN TUMBLING INSTRUCTOR, AYLIN T 487.1 Influenza 01/13/2009 KERNS DO, BESSIE K 487.1 Influenza 01/13/2009 HYUN TUMBLING INSTRUCTOR, AYLIN T 487.1 Influenza 01/13/2009 HYUN TUMBLING INSTRUCTOR, AYLIN T 487.1 Influenza 01/13/2009 KERNS DO, BESSIE K 487.1 Influenza 01/13/2009 KERNS DO, BESSIE K 487.1 Influenza 01/13/2009 MALLORIE BHAGAT MD 487.1 Influenza 01/13/2009 HYUN TUMBLING INSTRUCTOR, AYLIN T 487.1 Influenza 01/13/2009 HYUN TUMBLING INSTRUCTOR, AYLIN T 487.1 Influenza 01/13/2009 HYUN TUMBLING INSTRUCTOR, AYLIN T 487.1 Influenza 01/13/2009 MADL TUMBLING INSTRUCTOR, DARIUSZ L 487.1 Influenza 01/13/2009 AYLIN PURVIS APRN T 487.1 Influenza 01/13/2009 MADL TUMBLING INSTRUCTOR, DARIUSZ L 487.1 Influenza 01/13/2009 HYUN TUMBLING INSTRUCTOR, AYLIN T 487.1 Influenza 01/13/2009 HYUN TUMBLING INSTRUCTOR, AYLIN T 487.1 Influenza 01/13/2009 HYUN TUMBLING INSTRUCTOR, AYLIN T 487.1 Influenza 01/13/2009 MORALES TUMBLING INSTRUCTOR, LINSEY Douglass 487.1 Influenza 01/13/2009 HYUN TUMBLING INSTRUCTOR, AYLIN T 487.1 Influenza 01/13/2009 JESU BROWN MD 487.1 Influenza 01/13/2009 NEGRITA TUMBLING INSTRUCTOR, YUMI R 487.1 Influenza 01/13/2009 YASMIN TUMBLING INSTRUCTOR, DANIEL S 487.1 Influenza 01/13/2009 NEGRITA TUMBLING INSTRUCTOR, YUMI R 487.1 Influenza 01/13/2009 HYUN TUMBLING INSTRUCTORAYLIN Montoya T 487.1 Influenza 01/13/2009 YASMIN TUMBLING INSTRUCTOR, DANIEL S 487.1 Influenza 04/18/2009 HYUN TUMBLING INSTRUCTORAYLIN Montoya T 464.00 Acute Laryngitis, Without Mention Of Obstruction 04/18/2009 KERNS DO, BESSIE K 464.00 Acute Laryngitis, Without Mention Of Obstruction 04/18/2009 KERNS DO, BESSIE K 464.00 Acute Laryngitis, Without Mention Of Obstruction 04/18/2009 464.00 Acute Laryngitis, Without Mention Of Obstruction 04/18/2009 464.00 Acute Laryngitis, Without Mention Of Obstruction 04/18/2009 464.00 Acute Laryngitis, Without Mention Of Obstruction 04/18/2009 464.00 Acute Laryngitis, Without Mention Of Obstruction 04/18/2009 464.00 Acute Laryngitis, Without Mention Of Obstruction 04/18/2009 464.00 Acute Laryngitis, Without Mention Of Obstruction 04/18/2009 464.00 Acute Laryngitis, Without Mention Of Obstruction 04/18/2009 464.00 Acute Laryngitis, Without Mention Of Obstruction 04/18/2009 464.00 Acute Laryngitis, Without Mention Of Obstruction 04/18/2009 AZUCENA POWELL APRN 464.00 Acute Laryngitis, Without Mention Of Obstruction 04/18/2009 KERNS DO, BESSIE K 464.00 Acute Laryngitis, Without Mention Of Obstruction 04/18/2009 KERNS DO, BESSIE K 464.00 Acute Laryngitis, Without Mention Of Obstruction 04/18/2009 AYLIN PURVIS APRN 464.00 Acute Laryngitis, Without Mention Of Obstruction 04/18/2009 KERNS DO, BESSIE K 464.00 Acute Laryngitis, Without Mention Of Obstruction 04/18/2009 AYLIN PURVIS APRN 464.00 Acute Laryngitis, Without Mention Of Obstruction 04/18/2009 KERNS DO, BESSIE K 464.00 Acute Laryngitis, Without Mention Of Obstruction 04/18/2009 AYLIN PURVIS APRN 464.00 Acute Laryngitis, Without Mention Of Obstruction 04/18/2009 AYLIN PURVIS APRN T 464.00 Acute Laryngitis, Without Mention Of Obstruction 04/18/2009 KERNS DO, BESSIE K 464.00 Acute Laryngitis, Without Mention Of Obstruction 04/18/2009 KERNS DO, BESSIE K 464.00 Acute Laryngitis, Without Mention Of Obstruction 04/18/2009 MALLORIE BHAGAT MD 464.00 Acute Laryngitis, Without Mention Of Obstruction 04/18/2009 AYLIN PURVIS APRN 464.00 Acute Laryngitis, Without Mention Of Obstruction 04/18/2009 AYLIN PURVIS APRN 464.00 Acute Laryngitis, Without Mention Of Obstruction 04/18/2009 HYUN TUMBLING INSTRUCTOR, AYLIN T 464.00 Acute Laryngitis, Without Mention Of Obstruction 04/18/2009 JUVE TUMBLING INSTRUCTOR, DARIUSZ L 464.00 Acute Laryngitis, Without Mention Of Obstruction 04/18/2009 AYLIN PURVIS APRN T 464.00 Acute Laryngitis, Without Mention Of Obstruction 04/18/2009 JUVE TUMBLING INSTRUCTOR, DARIUSZ L 464.00 Acute Laryngitis, Without Mention Of Obstruction 04/18/2009 AYLIN PURVIS APRN T 464.00 Acute Laryngitis, Without Mention Of Obstruction 04/18/2009 HYUN TUMBLING INSTRUCTOR, AYLIN T 464.00 Acute Laryngitis, Without Mention Of Obstruction 04/18/2009 AYLIN PURVIS APRN 464.00 Acute Laryngitis, Without Mention Of Obstruction 04/18/2009 LINSEY MORALES APRN 464.00 Acute Laryngitis, Without Mention Of Obstruction 04/18/2009 AYLIN PURVIS APRN T 464.00 Acute Laryngitis, Without Mention Of Obstruction 04/18/2009 JESU BROWN MD 464.00 Acute Laryngitis, Without Mention Of Obstruction 04/18/2009 NEGRITA OSUNA, YUMI R 464.00 Acute Laryngitis, Without Mention Of Obstruction 04/18/2009 JUAN PABLO HOFFMAN APRNNDA S 464.00 Acute Laryngitis, Without Mention Of Obstruction 04/18/2009 NEGRITA OSUNA, YUMI R 464.00 Acute Laryngitis, Without Mention Of Obstruction 04/18/2009 AYLIN PURVIS APRN T 464.00 Acute Laryngitis, Without Mention Of Obstruction 04/18/2009 DANIEL HOFFMAN APRN S 464.00 Acute Laryngitis, Without Mention Of Obstruction 04/26/2009 AYLIN PURVIS APRN T 380.10 Otitis Externa Unspecified 04/26/2009 KERNS DOSANTAA K 380.10 Otitis Externa Unspecified 04/26/2009 KERNS DO BESSIE K 380.10 Otitis Externa Unspecified 04/26/2009 380.10 Otitis Externa Unspecified 04/26/2009 380.10 Otitis Externa Unspecified 04/26/2009 380.10 Otitis Externa Unspecified 04/26/2009 380.10 Otitis Externa Unspecified 04/26/2009 380.10 Otitis Externa Unspecified 04/26/2009 380.10 Otitis Externa Unspecified 04/26/2009 380.10 Otitis Externa Unspecified 04/26/2009 380.10 Otitis Externa Unspecified 04/26/2009 380.10 Otitis Externa Unspecified 04/26/2009 AZUCENA POWELL APRN A 380.10 Otitis Externa Unspecified 04/26/2009 KERNS DO, BESSIE K 380.10 Otitis Externa Unspecified 04/26/2009 KERNS DO, BESSIE K 380.10 Otitis Externa Unspecified 04/26/2009 AYLIN PURVIS APRN T 380.10 Otitis Externa Unspecified 04/26/2009 KERNS DO, BESSIE K 380.10 Otitis Externa Unspecified 04/26/2009 HYUN OSUNA AYLIN T 380.10 Otitis Externa Unspecified 04/26/2009 KERNS DO, BESSIE K 380.10 Otitis Externa Unspecified 04/26/2009 AYLIN PURVIS APRN T 380.10 Otitis Externa Unspecified 04/26/2009 AYLIN PURVIS APRN T 380.10 Otitis Externa Unspecified 04/26/2009 KERNS DO, BESSIE K 380.10 Otitis Externa Unspecified 04/26/2009 KERNS DO, BESSIE K 380.10 Otitis Externa Unspecified 04/26/2009 MALLORIE BHAGAT MD 380.10 Otitis Externa Unspecified 04/26/2009 AYLIN PURVIS APRN T 380.10 Otitis Externa Unspecified 04/26/2009 AYLIN PURVIS APRN T 380.10 Otitis Externa Unspecified 04/26/2009 AYLIN PURVIS APRN T 380.10 Otitis Externa Unspecified 04/26/2009 JUVE OSUNA, DARIUSZ L 380.10 Otitis Externa Unspecified 04/26/2009 AYLIN PURVIS APRN T 380.10 Otitis Externa Unspecified 04/26/2009 JUVE TUMBLING INSTRUCTOR, DARIUSZ L 380.10 Otitis Externa Unspecified 04/26/2009 AYLIN PURVIS APRN T 380.10 Otitis Externa Unspecified 04/26/2009 AYLIN PURVIS APRN T 380.10 Otitis Externa Unspecified 04/26/2009 AYLIN PURVIS APRN T 380.10 Otitis Externa Unspecified 04/26/2009 LINSEY MORALES APRN 380.10 Otitis Externa Unspecified 04/26/2009 AYLIN PURVIS APRN T 380.10 Otitis Externa Unspecified 04/26/2009 JESU BROWN MD 380.10 Otitis Externa Unspecified 04/26/2009 NEGRITA TUMBLING INSTRUCTOR, YUMI R 380.10 Otitis Externa Unspecified 04/26/2009 YASMIN TUMBLING INSTRUCTOR, DANIEL S 380.10 Otitis Externa Unspecified 04/26/2009 NEGRITA TUMBLING INSTRUCTOR, YUMI R 380.10 Otitis Externa Unspecified 04/26/2009 AYLIN PURVIS APRN T 380.10 Otitis Externa Unspecified 04/26/2009 YASMIN DE LOS SANTOSN, DANIEL S 380.10 Otitis Externa Unspecified 05/26/2009 AYLIN PURVIS APRN 723.1 CERVICALGIA 05/26/2009 AYLIN PURVIS APRN 728.85 Spasm Of Muscle 05/26/2009 KERNS DO BESSIE K 723.1 CERVICALGIA 05/26/2009 KERNS DO BESSIE K 728.85 Spasm Of Muscle 05/26/2009 KERNS DO, BESSIE K 723.1 CERVICALGIA 05/26/2009 KERNS DO BESSIE K 728.85 Spasm Of Muscle 05/26/2009 723.1 CERVICALGIA 05/26/2009 728.85 Spasm Of Muscle 05/26/2009 723.1 CERVICALGIA 05/26/2009 728.85 Spasm Of Muscle 05/26/2009 723.1 CERVICALGIA 05/26/2009 728.85 Spasm Of Muscle 05/26/2009 723.1 CERVICALGIA 05/26/2009 728.85 Spasm Of Muscle 05/26/2009 723.1 CERVICALGIA 05/26/2009 728.85 Spasm Of Muscle 05/26/2009 723.1 CERVICALGIA 05/26/2009 728.85 Spasm Of Muscle 05/26/2009 723.1 CERVICALGIA 05/26/2009 728.85 Spasm Of Muscle 05/26/2009 723.1 CERVICALGIA 05/26/2009 728.85 Spasm Of Muscle 05/26/2009 723.1 CERVICALGIA 05/26/2009 728.85 Spasm Of Muscle 05/26/2009 ANDREJan OSUNA AZUCENA A 723.1 CERVICALGIA 05/26/2009 ANDREJan OSUNA AZUCENA A 728.85 Spasm Of Muscle 05/26/2009 KERNS DO BESSIE K 723.1 CERVICALGIA 05/26/2009 KERNS DO BESSIE K 728.85 Spasm Of Muscle 05/26/2009 KERNS DO, BESSIE K 723.1 CERVICALGIA 05/26/2009 KERNS DO, BESSIE K 728.85 Spasm Of Muscle 05/26/2009 AYLIN PURVIS APRN 723.1 CERVICALGIA 05/26/2009 AYLIN PURVIS APRN 728.85 Spasm Of Muscle 05/26/2009 KERNS DO, BESSIE K 723.1 CERVICALGIA 05/26/2009 KERNS DO, BESSIE K 728.85 Spasm Of Muscle 05/26/2009 AYLIN PURVIS APRN 723.1 CERVICALGIA 05/26/2009 AYLIN PURVIS APRN 728.85 Spasm Of Muscle 05/26/2009 KERNS DO, BESSIE K 723.1 CERVICALGIA 05/26/2009 KERNS DO, BESSIE K 728.85 Spasm Of Muscle 05/26/2009 AYLIN PURVIS APRN 723.1 CERVICALGIA 05/26/2009 AYLIN PURVIS APRN 728.85 Spasm Of Muscle 05/26/2009 AYLIN PURVIS APRN 723.1 CERVICALGIA 05/26/2009 AYLIN PURVIS APRN 728.85 Spasm Of Muscle 05/26/2009 KERNS DO, BESSIE K 723.1 CERVICALGIA 05/26/2009 KERNS DO, BESSIE K 728.85 Spasm Of Muscle 05/26/2009 KERNS DO, BESSIE K 723.1 CERVICALGIA 05/26/2009 KERNS DO, BESSIE K 728.85 Spasm Of Muscle 05/26/2009 MALLORIE BHAGAT MD 723.1 CERVICALGIA 05/26/2009 MALLORIE BHAGAT MD 728.85 Spasm Of Muscle 05/26/2009 AYLIN PURVIS APRN 723.1 CERVICALGIA 05/26/2009 AYLIN PURVIS APRN 728.85 Spasm Of Muscle 05/26/2009 AYLIN PURVIS APRN 723.1 CERVICALGIA 05/26/2009 AYLIN PURVIS APRN 728.85 Spasm Of Muscle 05/26/2009 AYLIN PURVIS APRN 723.1 CERVICALGIA 05/26/2009 AYLIN PURVIS APRN 728.85 Spasm Of Muscle 05/26/2009 DARIUSZ AN APRN L 723.1 CERVICALGIA 05/26/2009 DARIUSZ AN APRN L 728.85 Spasm Of Muscle 05/26/2009 AYLIN PURVIS APRN 723.1 CERVICALGIA 05/26/2009 AYLIN PURVIS APRN 728.85 Spasm Of Muscle 05/26/2009 MADDARI[place] APRN L 723.1 CERVICALGIA 05/26/2009 DARIUSZ AN APRN L 728.85 Spasm Of Muscle 05/26/2009 AYLIN PURVIS APRN 723.1 CERVICALGIA 05/26/2009 AYLIN PURVIS APRN 728.85 Spasm Of Muscle 05/26/2009 AYLIN PURVIS APRN 723.1 CERVICALGIA 05/26/2009 AYLIN PURVIS APRN 728.85 Spasm Of Muscle 05/26/2009 AYLIN PURVIS APRN 723.1 CERVICALGIA 05/26/2009 AYLIN PURVIS APRN 728.85 Spasm Of Muscle 05/26/2009 LINSEY MORALES APRN 723.1 CERVICALGIA 05/26/2009 LINSEY MORALES APRN 728.85 Spasm Of Muscle 05/26/2009 AYLIN PURVIS APRN 723.1 CERVICALGIA 05/26/2009 AYLIN PURVIS APRN 728.85 Spasm Of Muscle 05/26/2009 JESU BROWN MD 723.1 CERVICALGIA 05/26/2009 JESU BROWN MD 728.85 Spasm Of Muscle 05/26/2009 NEGRITA OSUNA YUMI R 723.1 CERVICALGIA 05/26/2009 NEGRITA OSUNA YUMI R 728.85 Spasm Of Muscle 05/26/2009 YASMIN OSUNA DANIEL S 723.1 CERVICALGIA 05/26/2009 ALANIS HOFFMAN APRNA S 728.85 Spasm Of Muscle 05/26/2009 NEGRITA OSUNA, YUMI R 723.1 CERVICALGIA 05/26/2009 NEGRITA OSUNA YUMI R 728.85 Spasm Of Muscle 05/26/2009 AYLIN PURVIS APRN 723.1 CERVICALGIA 05/26/2009 AYLIN PURVIS APRN 728.85 Spasm Of Muscle 05/26/2009 ALANIS HOFFMAN APRNA S 723.1 CERVICALGIA 05/26/2009 ALANIS HOFFMAN APRNA S 728.85 Spasm Of Muscle 09/23/2009 AYLIN PURVIS APRN 784.0 Headache 09/23/2009 KERNS DO, BESSIE K 784.0 Headache 09/23/2009 KERNS DO, BESSIE K 784.0 Headache 09/23/2009 784.0 Headache 09/23/2009 784.0 Headache 09/23/2009 784.0 Headache 09/23/2009 784.0 Headache 09/23/2009 784.0 Headache 09/23/2009 784.0 Headache 09/23/2009 784.0 Headache 09/23/2009 784.0 Headache 09/23/2009 784.0 Headache 09/23/2009 ANDRE TUMBLING INSTRUCTOR, AZUCENA A 784.0 Headache 09/23/2009 KERNS DO, BESSIE K 784.0 Headache 09/23/2009 KERNS DO, BESSIE K 784.0 Headache 09/23/2009 AYLIN PURVIS APRN T 784.0 Headache 09/23/2009 KERNS DO, BESSIE K 784.0 Headache 09/23/2009 AYLIN PURVIS APRN T 784.0 Headache 09/23/2009 KERNS DO, BESSIE K 784.0 Headache 09/23/2009 AYLIN PURVIS APRN T 784.0 Headache 09/23/2009 HYUN OSUNA, AYLIN T 784.0 Headache 09/23/2009 KERNS DO, BESSIE K 784.0 Headache 09/23/2009 KERNS DO, BESSIE K 784.0 Headache 09/23/2009 MALLORIE BHAGAT MD 784.0 Headache 09/23/2009 AYLIN PURVIS APRN T 784.0 Headache 09/23/2009 AYLIN PURVIS APRN T 784.0 Headache 09/23/2009 AYLIN PURVIS APRN T 784.0 Headache 09/23/2009 JUVE OSUNA, DARIUSZ L 784.0 Headache 09/23/2009 HYUN OSUNA, AYLIN T 784.0 Headache 09/23/2009 JUVE OSUNA, DARIUSZ L 784.0 Headache 09/23/2009 AYLIN PURVIS APRN T 784.0 Headache 09/23/2009 HYUN OSUNA, AYLIN T 784.0 Headache 09/23/2009 AYLIN PURVIS APRN T 784.0 Headache 09/23/2009 LINSEY MORALES APRN 784.0 Headache 09/23/2009 AYLIN PURVIS APRN T 784.0 Headache 09/23/2009 KEVIN MICHELLE, JESU 784.0 Headache 09/23/2009 NGERITA TUMBLING INSTRUCTOR, YUMI R 784.0 Headache 09/23/2009 YASMIN OSUNA, DANIEL S 784.0 Headache 09/23/2009 NEGRITA TUMBLING INSTRUCTOR, YUMI R 784.0 Headache 09/23/2009 AYLIN PURVIS APRN 784.0 Headache 09/23/2009 YASMIN OSUNA, DANIEL S 784.0 Headache 01/27/2010 AYLIN PURVIS APRN 719.40 ARTHRAIGIA UNSPEC 01/27/2010 AYLIN PURVIS APRN V70.0 General Medical Exam, Routine, At Health Care Facility 01/27/2010 BESSIE KERNS DO 719.40 ARTHRAIGIA UNSPEC 01/27/2010 BESSIE KERNS DO V70.0 General Medical Exam, Routine, At Health Care Facility 01/27/2010 BESSIE KERNS DO 719.40 ARTHRAIGIA UNSPEC 01/27/2010 BESSIE KERNS DO V70.0 General Medical Exam, Routine, At Health Care Facility 01/27/2010 719.40 ARTHRAIGIA UNSPEC 01/27/2010 V70.0 General Medical Exam, Routine, At Health Care Facility 01/27/2010 719.40 ARTHRAIGIA UNSPEC 01/27/2010 V70.0 General Medical Exam, Routine, At Health Care Facility 01/27/2010 719.40 ARTHRAIGIA UNSPEC 01/27/2010 V70.0 General Medical Exam, Routine, At Health Care Facility 01/27/2010 719.40 ARTHRAIGIA UNSPEC 01/27/2010 V70.0 General Medical Exam, Routine, At Health Care Facility 01/27/2010 719.40 ARTHRAIGIA UNSPEC 01/27/2010 V70.0 General Medical Exam, Routine, At Health Care Facility 01/27/2010 719.40 ARTHRAIGIA UNSPEC 01/27/2010 V70.0 General Medical Exam, Routine, At Health Care Facility 01/27/2010 719.40 ARTHRAIGIA UNSPEC 01/27/2010 V70.0 General Medical Exam, Routine, At Health Care Facility 01/27/2010 719.40 ARTHRAIGIA UNSPEC 01/27/2010 V70.0 General Medical Exam, Routine, At Health Care Facility 01/27/2010 719.40 ARTHRAIGIA UNSPEC 01/27/2010 V70.0 General Medical Exam, Routine, At Health Care Facility 01/27/2010 AZUCENA POWELL APRN A 719.40 ARTHRAIGIA UNSPEC 01/27/2010 AZUCENA POWELL APRN V70.0 General Medical Exam, Routine, At Health Care Facility 01/27/2010 [place] KERNS DOA K 719.40 ARTHRAIGIA UNSPEC 01/27/2010 KERNS DO BESSIE K V70.0 General Medical Exam, Routine, At Health Care Facility 01/27/2010 KERNS DO, BESSIE K 719.40 ARTHRAIGIA UNSPEC 01/27/2010 KERNS DO, BESSIE K V70.0 General Medical Exam, Routine, At Health Care Facility 01/27/2010 AYLIN PURVIS APRN 719.40 ARTHRAIGIA UNSPEC 01/27/2010 AYLIN PURVIS APRN V70.0 General Medical Exam, Routine, At Health Care Facility 01/27/2010 BESSIE KERNS DO K 719.40 ARTHRAIGIA UNSPEC 01/27/2010 [place]ER[place] DOA K V70.0 General Medical Exam, Routine, At Health Care Facility 01/27/2010 AYLIN PURVIS APRN 719.40 ARTHRAIGIA UNSPEC 01/27/2010 AYLIN PURVIS APRN V70.0 General Medical Exam, Routine, At Health Care Facility 01/27/2010 BESSIE KERNS DO K 719.40 ARTHRAIGIA UNSPEC 01/27/2010 [place]ER[place] DOA K V70.0 General Medical Exam, Routine, At Health Care Facility 01/27/2010 AYLIN PURVIS APRN 719.40 ARTHRAIGIA UNSPEC 01/27/2010 AYLIN PURVIS APRN V70.0 General Medical Exam, Routine, At Health Care Facility 01/27/2010 AYLIN PURVIS APRN 719.40 ARTHRAIGIA UNSPEC 01/27/2010 AYLIN PURVIS APRN V70.0 General Medical Exam, Routine, At Health Care Facility 01/27/2010 BESSIE KERNS DO K 719.40 ARTHRAIGIA UNSPEC 01/27/2010 KERNS DO BESSIE K V70.0 General Medical Exam, Routine, At Health Care Facility 01/27/2010 BESSIE KERNS DO K 719.40 ARTHRAIGIA UNSPEC 01/27/2010 LUIS F KOEHLER BESSIE K V70.0 General Medical Exam, Routine, At Health Care Facility 01/27/2010 MALLORIE BHAGAT MD 719.40 ARTHRAIGIA UNSPEC 01/27/2010 MALLORIE BHAGAT MD V70.0 General Medical Exam, Routine, At Health Care Facility 01/27/2010 AYLIN PUVRIS APRN 719.40 ARTHRAIGIA UNSPEC 01/27/2010 AYLIN PURVIS APRN V70.0 General Medical Exam, Routine, At Health Care Facility 01/27/2010 AYLIN PURVIS APRN 719.40 ARTHRAIGIA UNSPEC 01/27/2010 AYLIN PURVIS APRN V70.0 General Medical Exam, Routine, At Health Care Facility 01/27/2010 AYLIN PURVIS APRN 719.40 ARTHRAIGIA UNSPEC 01/27/2010 AYLIN PURVIS APRN V70.0 General Medical Exam, Routine, At Health Care Facility 01/27/2010 DARIUSZ AN APRN 719.40 ARTHRAIGIA UNSPEC 01/27/2010 DARIUSZ AN APRN V70.0 General Medical Exam, Routine, At Health Care Facility 01/27/2010 AYLIN PURVIS APRN 719.40 ARTHRAIGIA UNSPEC 01/27/2010 AYLIN PURVIS APRN V70.0 General Medical Exam, Routine, At Health Care Facility 01/27/2010 DARIUSZ AN APRN 719.40 ARTHRAIGIA UNSPEC 01/27/2010 DARIUSZ AN APRN V70.0 General Medical Exam, Routine, At Health Care Facility 01/27/2010 AYLIN PURVIS APRN 719.40 ARTHRAIGIA UNSPEC 01/27/2010 AYLIN PURVIS APRN V70.0 General Medical Exam, Routine, At Health Care Facility 01/27/2010 AYLIN PURVIS APRN 719.40 ARTHRAIGIA UNSPEC 01/27/2010 AYLIN PURVIS APRN V70.0 General Medical Exam, Routine, At Health Care Facility 01/27/2010 AYLIN PURVIS APRN 719.40 ARTHRAIGIA UNSPEC 01/27/2010 AYLIN PURVIS APRN V70.0 General Medical Exam, Routine, At Health Care Facility 01/27/2010 LINSEY MORALES APRN 719.40 ARTHRAIGIA UNSPEC 01/27/2010 LINSEY MORALES APRN V70.0 General Medical Exam, Routine, At Health Care Facility 01/27/2010 AYLIN PURVIS APRN 719.40 ARTHRAIGIA UNSPEC 01/27/2010 AYLIN PURVIS APRN V70.0 General Medical Exam, Routine, At Health Care Facility 01/27/2010 JESU BROWN MD 719.40 ARTHRAIGIA UNSPEC 01/27/2010 JEUS BROWN MD V70.0 General Medical Exam, Routine, At Health Care Facility 01/27/2010 NEGRITA OSUNA YUMI R 719.40 ARTHRAIGIA UNSPEC 01/27/2010 NEGRITA OSUNA YUMI R V70.0 General Medical Exam, Routine, At Health Care Facility 01/27/2010 DANIEL HOFFMAN APRN S 719.40 ARTHRAIGIA UNSPEC 01/27/2010 ALANIS HOFFMAN APRNA S V70.0 General Medical Exam, Routine, At Health Care Facility 01/27/2010 AYAH REES APRNINA R 719.40 ARTHRAIGIA UNSPEC 01/27/2010 NEGRITA OSUNA YUMI R V70.0 General Medical Exam, Routine, At Health Care Facility 01/27/2010 AYLIN PURVIS APRN 719.40 ARTHRAIGIA UNSPEC 01/27/2010 AYLIN PURVIS APRN V70.0 General Medical Exam, Routine, At Health Care Facility 01/27/2010 DANIEL HOFFMAN APRN S 719.40 ARTHRAIGIA UNSPEC 01/27/2010 ALANIS HOFFMAN APRNA S V70.0 General Medical Exam, Routine, At Health Care Facility 2010 AYLIN PURVIS APRN 272.1 HYPERTRIGLYCERIDEMIA 2010 BESSIE KERNS DO 272.1 HYPERTRIGLYCERIDEMIA 2010 BESSIE KERNS DO 272.1 HYPERTRIGLYCERIDEMIA 2010 272.1 HYPERTRIGLYCERIDEMIA 2010 272.1 HYPERTRIGLYCERIDEMIA 2010 272.1 HYPERTRIGLYCERIDEMIA 2010 272.1 HYPERTRIGLYCERIDEMIA 2010 272.1 HYPERTRIGLYCERIDEMIA 2010 272.1 HYPERTRIGLYCERIDEMIA 2010 272.1 HYPERTRIGLYCERIDEMIA 2010 272.1 HYPERTRIGLYCERIDEMIA 2010 272.1 HYPERTRIGLYCERIDEMIA 2010 ANDRE OSUNA AZUCENA A 272.1 HYPERTRIGLYCERIDEMIA 2010 KERNS DO, BESSIE K 272.1 HYPERTRIGLYCERIDEMIA 2010 KERNS DO, BESSIE K 272.1 HYPERTRIGLYCERIDEMIA 2010 HYUN OSUNA AYLIN T 272.1 HYPERTRIGLYCERIDEMIA 2010 KERNS DO, BESSIE K 272.1 HYPERTRIGLYCERIDEMIA 2010 HYUN OSUNA AYLIN T 272.1 HYPERTRIGLYCERIDEMIA 2010 KERNS DO, BESSIE K 272.1 HYPERTRIGLYCERIDEMIA 2010 HYUN OSUNA AYLIN T 272.1 HYPERTRIGLYCERIDEMIA 2010 HYUN OSUNA AYLIN T 272.1 HYPERTRIGLYCERIDEMIA 2010 KERNS DO, BESSIE K 272.1 HYPERTRIGLYCERIDEMIA 2010 EKRNS DO, BESSIE K 272.1 HYPERTRIGLYCERIDEMIA 2010 MALLORIE BHAGAT MD 272.1 HYPERTRIGLYCERIDEMIA 2010 HYUN OSUNA AYLIN T 272.1 HYPERTRIGLYCERIDEMIA 2010 HYUN OSUNA AYLIN T 272.1 HYPERTRIGLYCERIDEMIA 2010 HYUN OSUNA, AYLIN T 272.1 HYPERTRIGLYCERIDEMIA 2010 JUVE OSUNA, DARIUSZ L 272.1 HYPERTRIGLYCERIDEMIA 2010 HYUN OSUNA AYLIN T 272.1 HYPERTRIGLYCERIDEMIA 2010 JUVE OSUNA, DARIUSZ L 272.1 HYPERTRIGLYCERIDEMIA 2010 HYUN OSUNA AYLIN T 272.1 HYPERTRIGLYCERIDEMIA 2010 HYUN OSUNA AYLIN T 272.1 HYPERTRIGLYCERIDEMIA 2010 HYUN OSUNA AYLIN T 272.1 HYPERTRIGLYCERIDEMIA 2010 LINSEY MORALES APRN 272.1 HYPERTRIGLYCERIDEMIA 2010 HYUN OSUNA AYLIN T 272.1 HYPERTRIGLYCERIDEMIA 2010 JESU BROWN MD 272.1 HYPERTRIGLYCERIDEMIA 2010 NEGRITA OSUNA YUMI R 272.1 HYPERTRIGLYCERIDEMIA 2010 ALANIS HOFFMAN APRNA S 272.1 HYPERTRIGLYCERIDEMIA 2010 NEGRITA OSUNA YUMI R 272.1 HYPERTRIGLYCERIDEMIA 2010 HYUN OSUNA AYLIN T 272.1 HYPERTRIGLYCERIDEMIA 2010 DANIEL HOFFMAN APRN 272.1 HYPERTRIGLYCERIDEMIA 02/17/2010 AYLIN PURVIS APRN 719.46 PAIN IN JOINT INVOLVING LOWER LEG 02/17/2010 KERNS DO, BESSIE K 719.46 PAIN IN JOINT INVOLVING LOWER LEG 02/17/2010 KERNS DO, BESSIE K 719.46 PAIN IN JOINT INVOLVING LOWER LEG 02/17/2010 719.46 PAIN IN JOINT INVOLVING LOWER LEG 02/17/2010 719.46 PAIN IN JOINT INVOLVING LOWER LEG 02/17/2010 719.46 Pain In Joint Involving Lower Leg 02/17/2010 719.46 Pain In Joint Involving Lower Leg 02/17/2010 719.46 Pain In Joint Involving Lower Leg 02/17/2010 719.46 Pain In Joint Involving Lower Leg 02/17/2010 719.46 Pain In Joint Involving Lower Leg 02/17/2010 719.46 Pain In Joint Involving Lower Leg 02/17/2010 719.46 Pain In Joint Involving Lower Leg 02/17/2010 AZUCENA POWELL APRN 719.46 Pain In Joint Involving Lower Leg 02/17/2010 KERNS DO, BESSIE K 719.46 Pain In Joint Involving Lower Leg 02/17/2010 KERNS DO, BESSIE K 719.46 Pain In Joint Involving Lower Leg 02/17/2010 AYLIN PURVIS APRN 719.46 Pain In Joint Involving Lower Leg 02/17/2010 KERNS DO, BESSIE K 719.46 Pain In Joint Involving Lower Leg 02/17/2010 AYLIN PURVIS APRN 719.46 Pain In Joint Involving Lower Leg 02/17/2010 KERNS DO, BESSIE K 719.46 Pain In Joint Involving Lower Leg 02/17/2010 AYLIN PURVIS APRN 719.46 Pain In Joint Involving Lower Leg 02/17/2010 AYLIN PURVIS APRN 719.46 PAIN IN JOINT INVOLVING LOWER LEG 02/17/2010 KERNS DO, BESSIE K 719.46 Pain In Joint Involving Lower Leg 02/17/2010 KERNS DO, BESSIE K 719.46 Pain In Joint Involving Lower Leg 02/17/2010 MALLORIE BHAGAT MD 719.46 Pain In Joint Involving Lower Leg 02/17/2010 AYLIN PURVIS APRN 719.46 Pain In Joint Involving Lower Leg 02/17/2010 AYLIN PURVIS APRN 719.46 Pain In Joint Involving Lower Leg 02/17/2010 AYLIN PURVIS APRN 719.46 Pain In Joint Involving Lower Leg 02/17/2010 DARIUSZ AN APRN 719.46 Pain In Joint Involving Lower Leg 02/17/2010 AYLIN PURVIS APRN 719.46 Pain In Joint Involving Lower Leg 02/17/2010 DARIUSZ AN APRN 719.46 Pain In Joint Involving Lower Leg 02/17/2010 AYLIN PURVIS APRN 719.46 Pain In Joint Involving Lower Leg 02/17/2010 AYLIN PURVIS APRN 719.46 Pain In Joint Involving Lower Leg 02/17/2010 AYLIN PURVIS APRN 719.46 Pain In Joint Involving Lower Leg 02/17/2010 LINSEY MORALES APRN 719.46 Pain In Joint Involving Lower Leg 02/17/2010 AYLIN PURVIS APRN 719.46 Pain In Joint Involving Lower Leg 02/17/2010 JESU BROWN MD 719.46 Pain In Joint Involving Lower Leg 02/17/2010 YUMI REES APRN R 719.46 Pain In Joint Involving Lower Leg 02/17/2010 DANIEL HOFFMAN APRN S 719.46 Pain In Joint Involving Lower Leg 02/17/2010 YUMI REES APRN R 719.46 Pain In Joint Involving Lower Leg 02/17/2010 AYLIN PURVIS APRN 719.46 Pain In Joint Involving Lower Leg 02/17/2010 DANIEL HOFFMAN APRN S 719.46 Pain In Joint Involving Lower Leg 06/30/2010 AYLIN PURVIS APRN 009.1 Gastroenteritis Infect 06/30/2010 AYLIN PURVIS APRN 787.91 Diarrhea 06/30/2010 BESSIE KERNS DO 009.1 Gastroenteritis Infect 06/30/2010 BESSIE KERNS DO K 787.91 Diarrhea 06/30/2010 BESSIE KERNS DO K 009.1 Gastroenteritis Infect 06/30/2010 BESSIE KERNS DO K 787.91 Diarrhea 06/30/2010 009.1 Gastroenteritis Infect 06/30/2010 787.91 Diarrhea 06/30/2010 009.1 Gastroenteritis Infect 06/30/2010 787.91 Diarrhea 06/30/2010 009.1 Gastroenteritis Infect 06/30/2010 787.91 Diarrhea 06/30/2010 009.1 Gastroenteritis Infect 06/30/2010 787.91 Diarrhea 06/30/2010 009.1 Gastroenteritis Infect 06/30/2010 787.91 Diarrhea 06/30/2010 009.1 Gastroenteritis Infect 06/30/2010 787.91 Diarrhea 06/30/2010 009.1 Gastroenteritis Infect 06/30/2010 787.91 Diarrhea 06/30/2010 009.1 Gastroenteritis Infect 06/30/2010 787.91 Diarrhea 06/30/2010 009.1 Gastroenteritis Infect 06/30/2010 787.91 Diarrhea 06/30/2010 AZUCENA POWELL APRN A 009.1 Gastroenteritis Infect 06/30/2010 MAGGY POWELL APRNIDI A 787.91 Diarrhea 06/30/2010 KERNS DO, BESSIE K 009.1 Gastroenteritis Infect 06/30/2010 KERNS DO, BESSIE K 787.91 Diarrhea 06/30/2010 KERNS DO, BESSIE K 009.1 Gastroenteritis Infect 06/30/2010 KERNS DO, BESSIE K 787.91 Diarrhea 06/30/2010 AYLIN PURVIS APRN 009.1 Gastroenteritis Infect 06/30/2010 AYLIN PURVIS APRN 787.91 Diarrhea 06/30/2010 KERNS DO, BESSIE K 009.1 Gastroenteritis Infect 06/30/2010 KERNS DO, BESSIE K 787.91 Diarrhea 06/30/2010 AYLIN PURVIS APRN 009.1 Gastroenteritis Infect 06/30/2010 AYLIN PURVIS APRN 787.91 Diarrhea 06/30/2010 KERNS DO, BESSIE K 009.1 Gastroenteritis Infect 06/30/2010 KERNS DO BESSIE K 787.91 Diarrhea 06/30/2010 AYLIN PURVIS APRN 009.1 Gastroenteritis Infect 06/30/2010 AYLIN PURVIS APRN 787.91 Diarrhea 06/30/2010 AYLIN PURVIS APRN 009.1 Gastroenteritis Infect 06/30/2010 AYLIN PURVIS APRN 787.91 Diarrhea 06/30/2010 KERNS DO, BESSIE K 009.1 Gastroenteritis Infect 06/30/2010 KERNS DO, BESSIE K 787.91 Diarrhea 06/30/2010 KERNS DO, BESSIE K 009.1 Gastroenteritis Infect 06/30/2010 KERNS DO, BESSIE K 787.91 Diarrhea 06/30/2010 MALLORIE BHAGAT MD 009.1 Gastroenteritis Infect 06/30/2010 MALLORIE BHAGAT MD 787.91 Diarrhea 06/30/2010 AYLIN PURVIS APRN T 009.1 Gastroenteritis Infect 06/30/2010 AYLIN PURVIS APRN T 787.91 Diarrhea 06/30/2010 AYLIN PURVIS APRN T 009.1 Gastroenteritis Infect 06/30/2010 AYLIN PURVIS APRN T 787.91 Diarrhea 06/30/2010 AYLIN PURVIS APRN T 009.1 Gastroenteritis Infect 06/30/2010 AYLIN PURVIS APRN 787.91 Diarrhea 06/30/2010 DARIUSZ AN APRN L 009.1 Gastroenteritis Infect 06/30/2010 JUVE DE LOS SANTOSN, DARIUSZ L 787.91 Diarrhea 06/30/2010 AYLIN PURVIS APRN T 009.1 Gastroenteritis Infect 06/30/2010 AYLIN PURVIS APRN T 787.91 Diarrhea 06/30/2010 DARIUSZ AN APRN L 009.1 Gastroenteritis Infect 06/30/2010 DARIUSZ AN APRN L 787.91 Diarrhea 06/30/2010 AYLIN PURVIS APRN T 009.1 Gastroenteritis Infect 06/30/2010 AYLIN PURVIS APRN T 787.91 Diarrhea 06/30/2010 AYLIN PURVIS APRN T 009.1 Gastroenteritis Infect 06/30/2010 AYLIN PURVIS APRN 787.91 Diarrhea 06/30/2010 AYLIN PURVIS APRN T 009.1 Gastroenteritis Infect 06/30/2010 AYLIN PURVIS APRN T 787.91 Diarrhea 06/30/2010 LINSEY MORALES APRN 009.1 Gastroenteritis Infect 06/30/2010 LINSEY MORALES APRN 787.91 Diarrhea 06/30/2010 AYLIN PURVIS APRN T 009.1 Gastroenteritis Infect 06/30/2010 AYLIN PURVIS APRN T 787.91 Diarrhea 06/30/2010 JESU BROWN MD 009.1 Gastroenteritis Infect 06/30/2010 JESU BROWN MD 787.91 Diarrhea 06/30/2010 YUMI REES APRN R 009.1 Gastroenteritis Infect 06/30/2010 AYAH REES APRNINA R 787.91 Diarrhea 06/30/2010 DANIEL HOFFMAN APRN S 009.1 Gastroenteritis Infect 06/30/2010 DANIEL HOFFMAN APRN S 787.91 Diarrhea 06/30/2010 AYAH REES APRNINA R 009.1 Gastroenteritis Infect 06/30/2010 YUMI REES APRN R 787.91 Diarrhea 06/30/2010 AYLIN PURVIS APRN 009.1 Gastroenteritis Infect 06/30/2010 AYLIN PURVIS APRN 787.91 Diarrhea 06/30/2010 DANIEL HOFFMAN APRN S 009.1 Gastroenteritis Infect 06/30/2010 DANIEL HOFFMAN APRN S 787.91 Diarrhea 10/16/2010 AYLIN PURVIS APRN 681.11 Onychia And Paronychia Of Toe 10/16/2010 BESSIE KERNS DO 681.11 Onychia And Paronychia Of Toe 10/16/2010 BESSIE KERNS DO 681.11 Onychia And Paronychia Of Toe 10/16/2010 681.11 Onychia And Paronychia Of Toe 10/16/2010 681.11 Onychia And Paronychia Of Toe 10/16/2010 681.11 Onychia And Paronychia Of Toe 10/16/2010 681.11 Onychia And Paronychia Of Toe 10/16/2010 681.11 Onychia And Paronychia Of Toe 10/16/2010 681.11 Onychia And Paronychia Of Toe 10/16/2010 681.11 Onychia And Paronychia Of Toe 10/16/2010 681.11 Onychia And Paronychia Of Toe 10/16/2010 681.11 Onychia And Paronychia Of Toe 10/16/2010 AZUCENA POWELL APRN 681.11 Onychia And Paronychia Of Toe 10/16/2010 BESSIE KERNS DO 681.11 Onychia And Paronychia Of Toe 10/16/2010 BESSIE KERNS DO 681.11 Onychia And Paronychia Of Toe 10/16/2010 AYLIN PURVIS APRN 681.11 Onychia And Paronychia Of Toe 10/16/2010 BESSIE KERNS DO 681.11 Onychia And Paronychia Of Toe 10/16/2010 AYLIN PURVIS APRN 681.11 Onychia And Paronychia Of Toe 10/16/2010 BESSIE KERNS DO 681.11 Onychia And Paronychia Of Toe 10/16/2010 AYLIN PURVIS APRN 681.11 Onychia And Paronychia Of Toe 10/16/2010 AYLIN PURVIS APRN 681.11 Onychia And Paronychia Of Toe 10/16/2010 KERNS DO, BESSIE K 681.11 Onychia And Paronychia Of Toe 10/16/2010 KERNS DO, BESSIE K 681.11 Onychia And Paronychia Of Toe 10/16/2010 MALLORIE BHAGAT MD 681.11 Onychia And Paronychia Of Toe 10/16/2010 AYLIN PURVIS APRN 681.11 Onychia And Paronychia Of Toe 10/16/2010 AYLIN PURVIS APRN 681.11 Onychia And Paronychia Of Toe 10/16/2010 AYLIN PURVIS APRN 681.11 Onychia And Paronychia Of Toe 10/16/2010 DARIUSZ AN APRN 681.11 Onychia And Paronychia Of Toe 10/16/2010 AYLIN PURVIS APRN 681.11 Onychia And Paronychia Of Toe 10/16/2010 DARIUSZ AN APRN 681.11 Onychia And Paronychia Of Toe 10/16/2010 AYLIN PURVIS APRN 681.11 Onychia And Paronychia Of Toe 10/16/2010 AYLIN PURVIS APRN 681.11 Onychia And Paronychia Of Toe 10/16/2010 AYLIN PURVIS APRN 681.11 Onychia And Paronychia Of Toe 10/16/2010 LINSEY MORALES APRN 681.11 Onychia And Paronychia Of Toe 10/16/2010 AYLIN PURVIS APRN 681.11 Onychia And Paronychia Of Toe 10/16/2010 JESU BROWN MD 681.11 Onychia And Paronychia Of Toe 10/16/2010 YUMI REES APRN 681.11 Onychia And Paronychia Of Toe 10/16/2010 DANIEL HOFFMAN APRN 681.11 Onychia And Paronychia Of Toe 10/16/2010 YUMI REES APRN R 681.11 Onychia And Paronychia Of Toe 10/16/2010 AYLIN PURVIS APRN 681.11 Onychia And Paronychia Of Toe 10/16/2010 DANIEL HOFFMAN APRN 681.11 Onychia And Paronychia Of Toe 02/23/2011 AYLIN PURVIS APRN 278.00 OBESITY UNSPECIFIED 02/23/2011 AYLIN PURVIS APRN V04.81 FLU DX (MEDICARE ONLY) 02/23/2011 KERNS DO BESSIE K 278.00 OBESITY UNSPECIFIED 02/23/2011 KERNS DO, BESSIE K V04.81 FLU DX (MEDICARE ONLY) 02/23/2011 KERNS DO BESSIE K 278.00 OBESITY UNSPECIFIED 02/23/2011 KERNS DO, BESSIE K V04.81 FLU DX (MEDICARE ONLY) 02/23/2011 278.00 OBESITY UNSPECIFIED 02/23/2011 V04.81 FLU DX (MEDICARE ONLY) 02/23/2011 278.00 OBESITY UNSPECIFIED 02/23/2011 V04.81 FLU DX (MEDICARE ONLY) 02/23/2011 278.00 OBESITY UNSPECIFIED 02/23/2011 V04.81 Flu Dx (medicare Only) 02/23/2011 278.00 OBESITY UNSPECIFIED 02/23/2011 V04.81 Flu Dx (medicare Only) 02/23/2011 278.00 OBESITY UNSPECIFIED 02/23/2011 V04.81 Flu Dx (medicare Only) 02/23/2011 278.00 OBESITY UNSPECIFIED 02/23/2011 V04.81 Flu Dx (medicare Only) 02/23/2011 278.00 OBESITY UNSPECIFIED 02/23/2011 V04.81 Flu Dx (medicare Only) 02/23/2011 278.00 OBESITY UNSPECIFIED 02/23/2011 V04.81 Flu Dx (medicare Only) 02/23/2011 278.00 OBESITY UNSPECIFIED 02/23/2011 V04.81 Flu Dx (medicare Only) 02/23/2011 AZUCENA POWELL APRN 278.00 OBESITY UNSPECIFIED 02/23/2011 AZUCENA POWELL APRN V04.81 Flu Dx (medicare Only) 02/23/2011 KERNS DO BESSIE K 278.00 OBESITY UNSPECIFIED 02/23/2011 KERNS DO, BESSIE K V04.81 Flu Dx (medicare Only) 02/23/2011 KERNS DO, BESSIE K 278.00 OBESITY UNSPECIFIED 02/23/2011 KERNS DO, BESSIE K V04.81 Flu Dx (medicare Only) 02/23/2011 AYLIN PURVIS APRN T 278.00 OBESITY UNSPECIFIED 02/23/2011 HYUN OSUNA AYLIN T V04.81 Flu Dx (medicare Only) 02/23/2011 KERNS DO, BESSIE K 278.00 OBESITY UNSPECIFIED 02/23/2011 KERNS DO, BESSIE K V04.81 Flu Dx (medicare Only) 02/23/2011 AYLIN PURVIS APRN T 278.00 OBESITY UNSPECIFIED 02/23/2011 AYLIN PURVIS APRN T V04.81 Flu Dx (medicare Only) 02/23/2011 KERNS DO, BESSIE K 278.00 OBESITY UNSPECIFIED 02/23/2011 KERNS DO, BESSIE K V04.81 Flu Dx (medicare Only) 02/23/2011 AYLIN PURVIS APRN T 278.00 OBESITY UNSPECIFIED 02/23/2011 AYLIN PURVIS APRN T V04.81 Flu Dx (medicare Only) 02/23/2011 AYLIN PURVIS APRN T 278.00 OBESITY UNSPECIFIED 02/23/2011 AYLIN PURVIS APRN T V04.81 FLU DX (MEDICARE ONLY) 02/23/2011 KERNS DO, BESSIE K 278.00 OBESITY UNSPECIFIED 02/23/2011 KERNS DO, BESSIE K V04.81 Flu Dx (medicare Only) 02/23/2011 KERNS DO, BESSIE K 278.00 OBESITY UNSPECIFIED 02/23/2011 KERNS DO, BESSIE K V04.81 Flu Dx (medicare Only) 02/23/2011 MALLORIE BHAGAT MD 278.00 OBESITY UNSPECIFIED 02/23/2011 MALLORIE BHAGAT MD V04.81 Flu Dx (medicare Only) 02/23/2011 AYLIN PURVIS APRN T 278.00 OBESITY UNSPECIFIED 02/23/2011 AYLIN PURVIS APRN T V04.81 Flu Dx (medicare Only) 02/23/2011 AYLIN PURVIS APRN T 278.00 OBESITY UNSPECIFIED 02/23/2011 AYLIN PURVSI APRN T V04.81 Flu Dx (medicare Only) 02/23/2011 AYLIN PURVIS APRN 278.00 OBESITY UNSPECIFIED 02/23/2011 HYUN TUMBLING INSTRUCTOR, AYLIN T V04.81 Flu Dx (medicare Only) 02/23/2011 ZENAIDAL TUMBLING INSTRUCTOR, DARIUSZ L 278.00 OBESITY UNSPECIFIED 02/23/2011 JUVE TUMBLING INSTRUCTOR, DARIUSZ L V04.81 Flu Dx (medicare Only) 02/23/2011 AYLIN PURVIS APRN T 278.00 OBESITY UNSPECIFIED 02/23/2011 AYLIN PURVIS APRN T V04.81 Flu Dx (medicare Only) 02/23/2011 ZENAIDAL TUMBLING INSTRUCTOR, DARIUSZ L 278.00 OBESITY UNSPECIFIED 02/23/2011 ZENAIDAL TUMBLING INSTRUCTOR, DARIUSZ L V04.81 Flu Dx (medicare Only) 02/23/2011 AYLIN PURVIS APRN T 278.00 OBESITY UNSPECIFIED 02/23/2011 AYLIN PURVIS APRN T V04.81 Flu Dx (medicare Only) 02/23/2011 AYLIN PURVIS APRN T 278.00 OBESITY UNSPECIFIED 02/23/2011 AYLIN PURVIS APRN T V04.81 Flu Dx (medicare Only) 02/23/2011 AYLIN PURVIS APRN T 278.00 OBESITY UNSPECIFIED 02/23/2011 AYLIN PURVIS APRN T V04.81 Flu Dx (medicare Only) 02/23/2011 LINSEY MORALES APRN D 278.00 OBESITY UNSPECIFIED 02/23/2011 LINSEY MORALES APRN V04.81 Flu Dx (medicare Only) 02/23/2011 AYLIN PURVIS APRN T 278.00 OBESITY UNSPECIFIED 02/23/2011 AYLIN PURVIS APRN T V04.81 Flu Dx (medicare Only) 02/23/2011 JESU BROWN MD 278.00 OBESITY UNSPECIFIED 02/23/2011 JESU BROWN MD V04.81 Flu Dx (medicare Only) 02/23/2011 NEGRITA OSUNA YUMI R 278.00 OBESITY UNSPECIFIED 02/23/2011 NEGRITA OSUNA YUMI R V04.81 Flu Dx (medicare Only) 02/23/2011 DANIEL HOFFMAN APRN S 278.00 OBESITY UNSPECIFIED 02/23/2011 ALANIS HOFFMAN APRNA S V04.81 Flu Dx (medicare Only) 02/23/2011 NEGRITA OSUNA YUMI R 278.00 OBESITY UNSPECIFIED 02/23/2011 NEGRITA OSUNA YUMI R V04.81 Flu Dx (medicare Only) 02/23/2011 AYLIN PURVIS APRN 278.00 OBESITY UNSPECIFIED 02/23/2011 AYLIN PURVIS APRN V04.81 Flu Dx (medicare Only) 02/23/2011 YASMINKENISHA OSUNA DANIEL S 278.00 OBESITY UNSPECIFIED 02/23/2011 YASMIN ENRRIQUEJUAN PABLODANIEL S V04.81 Flu Dx (medicare Only) 04/12/2011 AYLIN PURVIS APRN 733.92 CHONDROMALACIA 04/12/2011 KERNS DO BESSIE K 733.92 CHONDROMALACIA 04/12/2011 KERNS DO, BESSIE K 733.92 CHONDROMALACIA 04/12/2011 733.92 CHONDROMALACIA 04/12/2011 733.92 CHONDROMALACIA 04/12/2011 733.92 Chondromalacia 04/12/2011 733.92 Chondromalacia 04/12/2011 733.92 Chondromalacia 04/12/2011 733.92 Chondromalacia 04/12/2011 733.92 Chondromalacia 04/12/2011 733.92 Chondromalacia 04/12/2011 733.92 Chondromalacia 04/12/2011 AZUCENA POWELL APRN 733.92 Chondromalacia 04/12/2011 KERNS DO, BESSIE K 733.92 Chondromalacia 04/12/2011 KERNS DO, BESSIE K 733.92 Chondromalacia 04/12/2011 AYLIN PURVIS APRN 733.92 Chondromalacia 04/12/2011 KERNS DO, BESSIE K 733.92 Chondromalacia 04/12/2011 AYLIN PURVIS APRN 733.92 Chondromalacia 04/12/2011 KERNS DO, BESSIE K 733.92 Chondromalacia 04/12/2011 AYLIN PURVIS APRN 733.92 Chondromalacia 04/12/2011 AYLIN PURVIS APRN 733.92 CHONDROMALACIA 04/12/2011 KERNS DO, BESSIE K 733.92 Chondromalacia 04/12/2011 KERNS DO BESSIE K 733.92 Chondromalacia 04/12/2011 MALLORIE BHAGAT MD 733.92 Chondromalacia 04/12/2011 AYLIN PURVIS APRN 733.92 Chondromalacia 04/12/2011 AYLIN PURVIS APRN 733.92 Chondromalacia 04/12/2011 AYLIN PURVIS APRN T 733.92 Chondromalacia 04/12/2011 JUVE OSUNA, DARIUSZ L 733.92 Chondromalacia 04/12/2011 AYLIN PURVIS APRN T 733.92 Chondromalacia 04/12/2011 JUVE OSUNA, DARIUSZ L 733.92 Chondromalacia 04/12/2011 AYLIN PURVIS APRN T 733.92 Chondromalacia 04/12/2011 AYLIN PURVIS APRN T 733.92 Chondromalacia 04/12/2011 AYLIN PURVIS APRN T 733.92 Chondromalacia 04/12/2011 CARMEN OSUNA, LINSEY D 733.92 Chondromalacia 04/12/2011 AYLIN PURVIS APRN T 733.92 Chondromalacia 04/12/2011 KEVIN MICHELLE, JESU 733.92 Chondromalacia 04/12/2011 NEGRITA OSUNA, YUMI R 733.92 Chondromalacia 04/12/2011 YASMIN OSUNA DANIEL S 733.92 Chondromalacia 04/12/2011 NEGRITA OSUNA, YUMI R 733.92 Chondromalacia 04/12/2011 HYUN OSUNA AYLIN T 733.92 Chondromalacia 04/12/2011 YASMIN OSUNA, DANIEL S 733.92 Chondromalacia 04/24/2011 AYLIN PURVIS APRN V72.84 PRE-OPERATIVE EXAM 04/24/2011 BESSIE KERNS DO V72.84 PRE-OPERATIVE EXAM 04/24/2011 BESSIE KERNS DO V72.84 PRE-OPERATIVE EXAM 04/24/2011 V72.84 PRE-OPERATIVE EXAM 04/24/2011 V72.84 PRE-OPERATIVE EXAM 04/24/2011 V72.84 Pre-operative Exam 04/24/2011 V72.84 Pre-operative Exam 04/24/2011 V72.84 Pre-operative Exam 04/24/2011 V72.84 Pre-operative Exam 04/24/2011 V72.84 Pre-operative Exam 04/24/2011 V72.84 Pre-operative Exam 04/24/2011 V72.84 Pre-operative Exam 04/24/2011 AZUCENA POWELL APRN V72.84 Pre-operative Exam 04/24/2011 BESSIE KERNS DO V72.84 Pre-operative Exam 04/24/2011 KERNS DO, BESSIE K V72.84 Pre-operative Exam 04/24/2011 HYUN OSUNA AYLIN T V72.84 Pre-operative Exam 04/24/2011 KERNS DO, BESSIE K V72.84 Pre-operative Exam 04/24/2011 HYUN OSUNA AYLIN T V72.84 Pre-operative Exam 04/24/2011 KERNS DO, BESSIE K V72.84 Pre-operative Exam 04/24/2011 HYUN OSUNA AYLIN T V72.84 Pre-operative Exam 04/24/2011 HYUN OSUNA AYLIN T V72.84 PRE-OPERATIVE EXAM 04/24/2011 KERNS DO, BESSIE K V72.84 Pre-operative Exam 04/24/2011 KERNS DO, BESSIE K V72.84 Pre-operative Exam 04/24/2011 MALLORIE BHAGAT MD V72.84 Pre-operative Exam 04/24/2011 AYLIN PURVIS APRN T V72.84 Pre-operative Exam 04/24/2011 AYLIN PURVIS APRN T V72.84 Pre-operative Exam 04/24/2011 AYLIN PURVIS APRN T V72.84 Pre-operative Exam 04/24/2011 DARIUSZ AN APRN L V72.84 Pre-operative Exam 04/24/2011 AYLIN PURVIS APRN T V72.84 Pre-operative Exam 04/24/2011 JUVE OSUNA, DARIUSZ L V72.84 Pre-operative Exam 04/24/2011 AYLIN PURVIS APRN T V72.84 Pre-operative Exam 04/24/2011 AYLIN PURVIS APRN T V72.84 Pre-operative Exam 04/24/2011 AYLIN PURVIS APRN T V72.84 Pre-operative Exam 04/24/2011 LINSEY MORALES APRN V72.84 Pre-operative Exam 04/24/2011 AYLIN PURVIS APRN T V72.84 Pre-operative Exam 04/24/2011 JESU BROWN MD V72.84 Pre-operative Exam 04/24/2011 YUMI REES APRN R V72.84 Pre-operative Exam 04/24/2011 DANIEL HOFFMAN APRN V72.84 Pre-operative Exam 04/24/2011 AYAH REES APRNINA R V72.84 Pre-operative Exam 04/24/2011 AYLIN PURVIS APRN V72.84 Pre-operative Exam 04/24/2011 DANIEL HOFFMAN APRN V72.84 Pre-operative Exam 05/02/2011 AYLIN PURVIS APRN T 786.2 COUGH 05/02/2011 KERNS DO, BESSIE K 786.2 COUGH 05/02/2011 KERNS DO, BESSIE K 786.2 COUGH 05/02/2011 786.2 COUGH 05/02/2011 786.2 COUGH 05/02/2011 786.2 Cough 05/02/2011 786.2 Cough 05/02/2011 786.2 Cough 05/02/2011 786.2 Cough 05/02/2011 786.2 Cough 05/02/2011 786.2 Cough 05/02/2011 786.2 Cough 05/02/2011 AZUCENA POWELL APRN 786.2 Cough 05/02/2011 KERNS DO, BESSIE K 786.2 Cough 05/02/2011 KERNS DO, BESSIE K 786.2 Cough 05/02/2011 AYLIN PURVIS APRN T 786.2 Cough 05/02/2011 KERNS DO, BESSIE K 786.2 Cough 05/02/2011 AYLIN PURVIS APRN T 786.2 Cough 05/02/2011 KERNS DO, BESSIE K 786.2 Cough 05/02/2011 AYLIN PURVIS APRN T 786.2 Cough 05/02/2011 AYLIN PURVIS APRN T 786.2 COUGH 05/02/2011 KERNS DO, BESSIE K 786.2 Cough 05/02/2011 KERNS DO, BESSIE K 786.2 Cough 05/02/2011 MALLORIE BHAGAT MD 786.2 Cough 05/02/2011 AYLIN PURVIS APRN T 786.2 Cough 05/02/2011 AYLIN PURVIS APRN T 786.2 Cough 05/02/2011 AYLIN PURVIS APRN T 786.2 Cough 05/02/2011 MADL TUMBLING INSTRUCTOR, DARIUSZ L 786.2 Cough 05/02/2011 AYLIN PURVIS APRN T 786.2 Cough 05/02/2011 MADL TUMBLING INSTRUCTOR, DARIUSZ L 786.2 Cough 05/02/2011 AYLIN PURVIS APRN T 786.2 Cough 05/02/2011 AYLIN PURVIS APRN T 786.2 Cough 05/02/2011 AYLIN PURVIS APRN T 786.2 Cough 05/02/2011 LINSEY MORALES APRN 786.2 Cough 05/02/2011 AYLIN PURVIS APRN 786.2 Cough 05/02/2011 JESU BROWN MD 786.2 Cough 05/02/2011 YUMI REES APRN R 786.2 Cough 05/02/2011 DANIEL HOFFMAN APRN S 786.2 Cough 05/02/2011 YUMI REES APRN R 786.2 Cough 05/02/2011 AYLIN PURVIS APRN 786.2 Cough 05/02/2011 DANIEL HOFFMAN APRN 786.2 Cough 05/19/2011 Ot 250.00 DIAB [place] WO COMPL, TYPE II OR UNSPEC TY 05/19/2011 Ot 272.4 HYPERLIPIDEMIA NEC/NOS 05/19/2011 Ot 276.8 HYPOPOTASSEMIA 05/19/2011 Ot 338.29 OTHER CHRONIC PAIN 05/19/2011 Ot 401.9 HYPERTENSION NOS 05/19/2011 Ot 715.36 LOC OSTEOARTH NOS-L/LEG 05/19/2011 Ot 724.2 LUMBAGO 07/12/2011 Ot V43.65 KNEE JOINT REPLACEMENT STATUS 07/12/2011 Ot V54.81 AFTERCARE FOLLOWING JOINT REPLACEMENT 07/12/2011 Ot V57.1 PHYSICAL THERAPY NEC 10/05/2011 AYLIN PURVIS APRN 465.9 UPPER RESPIRATORY INFECTION 10/05/2011 BESSIE KERNS DO 465.9 UPPER RESPIRATORY INFECTION 10/05/2011 BESSIE KERNS DO 465.9 UPPER RESPIRATORY INFECTION 10/05/2011 465.9 UPPER RESPIRATORY INFECTION 10/05/2011 465.9 UPPER RESPIRATORY INFECTION 10/05/2011 465.9 Upper Respiratory Infection 10/05/2011 465.9 Upper Respiratory Infection 10/05/2011 465.9 Upper Respiratory Infection 10/05/2011 465.9 Upper Respiratory Infection 10/05/2011 465.9 Upper Respiratory Infection 10/05/2011 465.9 Upper Respiratory Infection 10/05/2011 465.9 Upper Respiratory Infection 10/05/2011 AZUCENA POWELL APRN 465.9 Upper Respiratory Infection 10/05/2011 BESSIE KERNS DO 465.9 Upper Respiratory Infection 10/05/2011 BESSIE KERNS DO 465.9 Upper Respiratory Infection 10/05/2011 AYLIN PURVIS APRN 465.9 Upper Respiratory Infection 10/05/2011 BESSIE KERNS DO 465.9 Upper Respiratory Infection 10/05/2011 HYUN TUMBLING INSTRUCTOR, AYLIN T 465.9 Upper Respiratory Infection 10/05/2011 KERNS DO, BESSIE K 465.9 Upper Respiratory Infection 10/05/2011 HYUN TUMBLING INSTRUCTOR, AYLIN T 465.9 Upper Respiratory Infection 10/05/2011 HYUN TUMBLING INSTRUCTOR, AYLIN T 465.9 UPPER RESPIRATORY INFECTION 10/05/2011 KERNS DO, BESSIE K 465.9 Upper Respiratory Infection 10/05/2011 KERNS DO, BESSIE K 465.9 Upper Respiratory Infection 10/05/2011 LEOLA MICHELLE, MALLORIE 465.9 Upper Respiratory Infection 10/05/2011 HYUN TUMBLING INSTRUCTOR, AYLIN T 465.9 Upper Respiratory Infection 10/05/2011 HYUN TUMBLING INSTRUCTOR, AYLIN T 465.9 Upper Respiratory Infection 10/05/2011 HYUN TUMBLING INSTRUCTOR, AYLIN T 465.9 Upper Respiratory Infection 10/05/2011 JUVE TUMBLING INSTRUCTOR, DARIUSZ L 465.9 Upper Respiratory Infection 10/05/2011 HYUN TUMBLING INSTRUCTOR, AYLIN T 465.9 Upper Respiratory Infection 10/05/2011 JUVE TUMBLING INSTRUCTOR, DARIUSZ L 465.9 Upper Respiratory Infection 10/05/2011 HYUN DE LOS SANTOSN, AYLIN T 465.9 Upper Respiratory Infection 10/05/2011 HYUN TUMBLING INSTRUCTOR, AYLIN T 465.9 Upper Respiratory Infection 10/05/2011 HYUN TUMBLING INSTRUCTOR, AYLIN T 465.9 Upper Respiratory Infection 10/05/2011 LINSEY MORALES APRN 465.9 Upper Respiratory Infection 10/05/2011 HYUN TUMBLING INSTRUCTOR, AYLIN T 465.9 Upper Respiratory Infection 10/05/2011 KEVIN MICHELLE, JESU 465.9 Upper Respiratory Infection 10/05/2011 NEGRITA TUMBLING INSTRUCTOR, YUMI R 465.9 Upper Respiratory Infection 10/05/2011 YASMIN OSUNA, DANIEL S 465.9 Upper Respiratory Infection 10/05/2011 NEGRITA TUMBLING INSTRUCTOR, YUMI R 465.9 Upper Respiratory Infection 10/05/2011 HYUN DE LSO SANTOSN, AYLIN T 465.9 Upper Respiratory Infection 10/05/2011 YASMIN OSUNA, DANIEL S 465.9 Upper Respiratory Infection 10/31/2011 HYUN OSUNA AYLIN T 496 COPD 10/31/2011 KERNS DO, BESSIE K 496 COPD 10/31/2011 KERNS DO, BESSIE K 496 COPD 10/31/2011 496 COPD 10/31/2011 496 COPD 10/31/2011 496 COPD 10/31/2011 496 COPD 10/31/2011 496 COPD 10/31/2011 496 COPD 10/31/2011 496 COPD 10/31/2011 496 COPD 10/31/2011 496 COPD 10/31/2011 ANDRE TUMBLING INSTRUCTOR, AZUCENA Meade 496 COPD 10/31/2011 KERNS DO, BESSIE K 496 COPD 10/31/2011 KERNS DO, BESSIE K 496 COPD 10/31/2011 HYUN TUMBLING INSTRUCTOR, AYLIN T 496 COPD 10/31/2011 KERNS DO, BESSIE K 496 COPD 10/31/2011 HYUN TUMBLING INSTRUCTOR, AYLNI T 496 COPD 10/31/2011 KERNS DO, BESSIE K 496 COPD 10/31/2011 HYUN TUMBLING INSTRUCTOR, AYLIN T 496 COPD 10/31/2011 HYUN TUMBLING INSTRUCTOR, AYLIN T 496 COPD 10/31/2011 KERNS DO, BESSIE K 496 COPD 10/31/2011 KERNS DO, BESSIE K 496 COPD 10/31/2011 MALLORIE BHAGAT MD 496 COPD 10/31/2011 HYUN TUMBLING INSTRUCTOR, AYLIN T 496 COPD 10/31/2011 HYUN TUMBLING INSTRUCTOR, AYLIN T 496 COPD 10/31/2011 HYUN TUMBLING INSTRUCTOR, AYLIN T 496 COPD 10/31/2011 MADL TUMBLING INSTRUCTOR, DARIUSZ L 496 COPD 10/31/2011 HYUN TUMBLING INSTRUCTOR, AYLIN T 496 COPD 10/31/2011 MADL TUMBLING INSTRUCTOR, DARIUSZ L 496 COPD 10/31/2011 HYUN TUMBLING INSTRUCTOR, AYLIN T 496 COPD 10/31/2011 HYUN TUMBLING INSTRUCTOR, AYLIN T 496 COPD 10/31/2011 HYUN TUMBLING INSTRUCTOR, AYLIN T 496 COPD 10/31/2011 CARMEN TUMBLING INSTRUCTORLINSEY Montoya 496 COPD 10/31/2011 HYUN TUMBLING INSTRUCTOR, AYLIN T 496 COPD 10/31/2011 JESU BROWN MD 496 COPD 10/31/2011 NEGRITA TUMBLING INSTRUCTOR, YUMI R 496 COPD 10/31/2011 YASMIN TUMBLING INSTRUCTOR, DANIEL S 496 COPD 10/31/2011 NEGRITA TUMBLING INSTRUCTOR, YUMI R 496 COPD 10/31/2011 HYUN TUMBLING INSTRUCTOR, AYLIN T 496 COPD 10/31/2011 YASMIN TUMBLING INSTRUCTOR, DANIEL S 496 COPD 11/16/2011 AYLIN PURVIS APRN 789.00 ABDOMINAL PAIN UNSPECIFIED SITE 11/16/2011 KERNS DO, BESSIE K 789.00 ABDOMINAL PAIN UNSPECIFIED SITE 11/16/2011 KERNS DO, BESSIE K 789.00 ABDOMINAL PAIN UNSPECIFIED SITE 11/16/2011 789.00 ABDOMINAL PAIN UNSPECIFIED SITE 11/16/2011 789.00 ABDOMINAL PAIN UNSPECIFIED SITE 11/16/2011 789.00 Abdominal Pain Unspecified Site 11/16/2011 789.00 Abdominal Pain Unspecified Site 11/16/2011 789.00 Abdominal Pain Unspecified Site 11/16/2011 789.00 Abdominal Pain Unspecified Site 11/16/2011 789.00 Abdominal Pain Unspecified Site 11/16/2011 789.00 Abdominal Pain Unspecified Site 11/16/2011 789.00 Abdominal Pain Unspecified Site 11/16/2011 AZUCENA POWELL APRN 789.00 Abdominal Pain Unspecified Site 11/16/2011 KERNS DO, BESSIE K 789.00 Abdominal Pain Unspecified Site 11/16/2011 KERNS DO, BESSIE K 789.00 Abdominal Pain Unspecified Site 11/16/2011 AYLIN PURVIS APRN 789.00 Abdominal Pain Unspecified Site 11/16/2011 KERNS DO, BESSIE K 789.00 Abdominal Pain Unspecified Site 11/16/2011 AYLIN PURVIS APRN 789.00 Abdominal Pain Unspecified Site 11/16/2011 KERNS DO, BESSIE K 789.00 Abdominal Pain Unspecified Site 11/16/2011 AYLIN PURVIS APRN 789.00 Abdominal Pain Unspecified Site 11/16/2011 AYLIN PURVIS APRN 789.00 ABDOMINAL PAIN UNSPECIFIED SITE 11/16/2011 KERNS DO, BESSIE K 789.00 Abdominal Pain Unspecified Site 11/16/2011 KERNS DO, BESSIE K 789.00 Abdominal Pain Unspecified Site 11/16/2011 MALLORIE BHAGAT MD 789.00 Abdominal Pain Unspecified Site 11/16/2011 AYLIN PURVIS APRN 789.00 Abdominal Pain Unspecified Site 11/16/2011 AYLIN PURVIS APRN 789.00 Abdominal Pain Unspecified Site 11/16/2011 AYLIN PURVIS APRN 789.00 Abdominal Pain Unspecified Site 11/16/2011 DARIUSZ AN APRN 789.00 Abdominal Pain Unspecified Site 11/16/2011 AYLIN PURVIS APRN 789.00 Abdominal Pain Unspecified Site 11/16/2011 JUVE OSUNA, DARIUSZ L 789.00 Abdominal Pain Unspecified Site 11/16/2011 AYLIN PURVIS APRN T 789.00 Abdominal Pain Unspecified Site 11/16/2011 AYLIN PURVIS APRN T 789.00 Abdominal Pain Unspecified Site 11/16/2011 AYLIN PURVIS APRN T 789.00 Abdominal Pain Unspecified Site 11/16/2011 LINSEY MORALES APRN 789.00 Abdominal Pain Unspecified Site 11/16/2011 AYLIN PURVIS APRN T 789.00 Abdominal Pain Unspecified Site 11/16/2011 JESU BROWN MD 789.00 Abdominal Pain Unspecified Site 11/16/2011 NEGRITA OSUNA, YUMI R 789.00 Abdominal Pain Unspecified Site 11/16/2011 YASMIN OSUNA, DANIEL S 789.00 Abdominal Pain Unspecified Site 11/16/2011 NEGRITA OSUNA, YUMI R 789.00 Abdominal Pain Unspecified Site 11/16/2011 AYLIN PURVIS APRN T 789.00 Abdominal Pain Unspecified Site 11/16/2011 YASMIN OSUNA, DANIEL S 789.00 Abdominal Pain Unspecified Site 01/25/2012 AYLIN PURVIS APRN 627.2 hot flashes 01/25/2012 KERNS DO BESSIE K 627.2 hot flashes 01/25/2012 KERNS DO, BESSIE K 627.2 hot flashes 01/25/2012 627.2 hot flashes 01/25/2012 627.2 hot flashes 01/25/2012 627.2 hot flashes 01/25/2012 627.2 hot flashes 01/25/2012 627.2 hot flashes 01/25/2012 627.2 hot flashes 01/25/2012 627.2 hot flashes 01/25/2012 627.2 hot flashes 01/25/2012 627.2 hot flashes 01/25/2012 AZUCENA POWELL APRN 627.2 hot flashes 01/25/2012 KERNS DO, BESSIE K 627.2 hot flashes 01/25/2012 KERNS DO, BESSIE K 627.2 hot flashes 01/25/2012 AYLIN PURVIS APRN 627.2 hot flashes 01/25/2012 KERNS DO, BESSIE K 627.2 hot flashes 01/25/2012 HYUN TUMBLING INSTRUCTORAYLIN Montoya T 627.2 hot flashes 01/25/2012 KERNS DO, BESSIE K 627.2 hot flashes 01/25/2012 HYUN DE LOS SANTOSN, AYLIN T 627.2 hot flashes 01/25/2012 AYLIN PURVIS APRN T 627.2 hot flashes 01/25/2012 KERNS DO, BESSIE K 627.2 hot flashes 01/25/2012 KERNS DO, BESSIE K 627.2 hot flashes 01/25/2012 MALLORIE BHAGAT MD 627.2 hot flashes 01/25/2012 AYLIN PURVIS APRN T 627.2 hot flashes 01/25/2012 AYLIN PURVIS APRN T 627.2 hot flashes 01/25/2012 AYLIN PURVIS APRN T 627.2 hot flashes 01/25/2012 MADMaine TUMBLING INSTRUCTOR, DARIUSZ L 627.2 hot flashes 01/25/2012 AYLIN PURVIS APRN T 627.2 hot flashes 01/25/2012 JUVE OSUNA, DARIUSZ L 627.2 hot flashes 01/25/2012 AYLIN PURVIS APRN T 627.2 hot flashes 01/25/2012 AYLIN PURVIS APRN T 627.2 hot flashes 01/25/2012 AYLIN PURVIS APRN T 627.2 hot flashes 01/25/2012 LINSEY MORALES APRN D 627.2 hot flashes 01/25/2012 AYLIN PURVIS APRN T 627.2 hot flashes 01/25/2012 JESU BROWN MD 627.2 hot flashes 01/25/2012 NEGRITA OSUNA, YUMI R 627.2 hot flashes 01/25/2012 YASMIN OSUNA, DANIEL S 627.2 hot flashes 01/25/2012 NEGRITA OSUNA, YUMI R 627.2 hot flashes 01/25/2012 AYLIN PURVIS APRN T 627.2 hot flashes 01/25/2012 YASMIN OSUNA, DANIEL S 627.2 hot flashes 02/25/2012 AYLIN PURVIS APRN 401.9 HYPERTENSION, UNSPECIFIED ESSENTIAL 02/25/2012 KERNS DO, BESSIE K 401.9 HYPERTENSION, UNSPECIFIED ESSENTIAL 02/25/2012 KERNS DO, BESSIE K 401.9 HYPERTENSION, UNSPECIFIED ESSENTIAL 02/25/2012 401.9 HYPERTENSION, UNSPECIFIED ESSENTIAL 02/25/2012 401.9 HYPERTENSION, UNSPECIFIED ESSENTIAL 02/25/2012 401.9 HYPERTENSION, UNSPECIFIED ESSENTIAL 02/25/2012 401.9 HYPERTENSION, UNSPECIFIED ESSENTIAL 02/25/2012 401.9 HYPERTENSION, UNSPECIFIED ESSENTIAL 02/25/2012 401.9 HYPERTENSION, UNSPECIFIED ESSENTIAL 02/25/2012 401.9 HYPERTENSION, UNSPECIFIED ESSENTIAL 02/25/2012 401.9 HYPERTENSION, UNSPECIFIED ESSENTIAL 02/25/2012 401.9 HYPERTENSION, UNSPECIFIED ESSENTIAL 02/25/2012 ANDRE TUMBLING INSTRUCTOR, AZUCENA A 401.9 HYPERTENSION, UNSPECIFIED ESSENTIAL 02/25/2012 KERNS DO, BESSIE K 401.9 HYPERTENSION, UNSPECIFIED ESSENTIAL 02/25/2012 KERNS DO, BESSIE K 401.9 HYPERTENSION, UNSPECIFIED ESSENTIAL 02/25/2012 AYLIN PURVIS APRN 401.9 HYPERTENSION, UNSPECIFIED ESSENTIAL 02/25/2012 KERNS DO, BESSIE K 401.9 HYPERTENSION, UNSPECIFIED ESSENTIAL 02/25/2012 AYLIN PURVIS APRN T 401.9 HYPERTENSION, UNSPECIFIED ESSENTIAL 02/25/2012 KERNS DO, BESSIE K 401.9 HYPERTENSION, UNSPECIFIED ESSENTIAL 02/25/2012 AYLIN PURVIS APRN T 401.9 HYPERTENSION, UNSPECIFIED ESSENTIAL 02/25/2012 AYLIN PURVIS APRN 401.9 HYPERTENSION, UNSPECIFIED ESSENTIAL 02/25/2012 KERNS DO, BESSIE K 401.9 HYPERTENSION, UNSPECIFIED ESSENTIAL 02/25/2012 KERNS DO, BESSIE K 401.9 HYPERTENSION, UNSPECIFIED ESSENTIAL 02/25/2012 MALLORIE BHAGAT MD 401.9 HYPERTENSION, UNSPECIFIED ESSENTIAL 02/25/2012 AYLIN PURVIS APRN 401.9 HYPERTENSION, UNSPECIFIED ESSENTIAL 02/25/2012 AYLIN PURVIS APRN 401.9 HYPERTENSION, UNSPECIFIED ESSENTIAL 02/25/2012 AYLIN PURVIS APRN 401.9 HYPERTENSION, UNSPECIFIED ESSENTIAL 02/25/2012 DARIUSZ AN APRN L 401.9 HYPERTENSION, UNSPECIFIED ESSENTIAL 02/25/2012 AYLIN PURVIS APRN 401.9 HYPERTENSION, UNSPECIFIED ESSENTIAL 02/25/2012 DHIRAJ AN APRNA L 401.9 HYPERTENSION, UNSPECIFIED ESSENTIAL 02/25/2012 HYUN TUMBLING INSTRUCTOR, AYLIN T 401.9 HYPERTENSION, UNSPECIFIED ESSENTIAL 02/25/2012 AYLIN PURVIS APRN 401.9 HYPERTENSION, UNSPECIFIED ESSENTIAL 02/25/2012 AYLIN PURVIS APRN T 401.9 HYPERTENSION, UNSPECIFIED ESSENTIAL 02/25/2012 LINSEY MORALES APRN 401.9 HYPERTENSION, UNSPECIFIED ESSENTIAL 02/25/2012 AYLIN PURVIS APRN 401.9 HYPERTENSION, UNSPECIFIED ESSENTIAL 02/25/2012 JESU BROWN MD 401.9 HYPERTENSION, UNSPECIFIED ESSENTIAL 02/25/2012 NEGRITA DE LOS SANTOSN, YUMI R 401.9 HYPERTENSION, UNSPECIFIED ESSENTIAL 02/25/2012 YASMIN OSUNA, DANIEL S 401.9 HYPERTENSION, UNSPECIFIED ESSENTIAL 02/25/2012 NEGRITA OSUNA, YUMI R 401.9 HYPERTENSION, UNSPECIFIED ESSENTIAL 02/25/2012 AYLIN PURVIS APRN T 401.9 HYPERTENSION, UNSPECIFIED ESSENTIAL 02/25/2012 YASMIN OSUNA, DANIEL S 401.9 HYPERTENSION, UNSPECIFIED ESSENTIAL 08/27/2012 789.04 abdominal pain in the left lower belly (LLQ) 08/27/2012 789.04 abdominal pain in the left lower belly (LLQ) 08/27/2012 789.04 abdominal pain in the left lower belly (LLQ) 08/27/2012 789.04 abdominal pain in the left lower belly (LLQ) 08/27/2012 789.04 abdominal pain in the left lower belly (LLQ) 08/27/2012 789.04 abdominal pain in the left lower belly (LLQ) 08/27/2012 AZUCENA POWELL APRN 789.04 abdominal pain in the left lower belly ( LLQ) 08/27/2012 [place] DOA K 789.04 abdominal pain in the left lower belly (LLQ) 08/27/2012 BESSIE KERNS DO K 789.04 abdominal pain in the left lower belly (LLQ) 08/27/2012 AYLIN PURVIS APRN 789.04 abdominal pain in the left lower belly ( LLQ) 08/27/2012 [place] K 789.04 abdominal pain in the left lower belly (LLQ) 08/27/2012 AYLIN PURVIS APRN 789.04 abdominal pain in the left lower belly ( LLQ) 08/27/2012 KERNS DO, BESSIE K 789.04 abdominal pain in the left lower belly (LLQ) 08/27/2012 AYLIN PURVIS APRN 789.04 abdominal pain in the left lower belly ( LLQ) 08/27/2012 KERNS DO, BESSIE K 789.04 abdominal pain in the left lower belly (LLQ) 08/27/2012 KERNS DO, BESSIE K 789.04 abdominal pain in the left lower belly (LLQ) 08/27/2012 MALLORIE BHAGAT MD 789.04 abdominal pain in the left lower belly (LLQ ) 08/27/2012 AYLIN PURVIS APRN 789.04 abdominal pain in the left lower belly ( LLQ) 08/27/2012 AYLIN PURVIS APRN 789.04 abdominal pain in the left lower belly ( LLQ) 08/27/2012 AYLIN PURVIS APRN 789.04 ABDOMINAL PAIN IN THE LEFT LOWER BELLY ( LLQ) 08/27/2012 DARIUSZ AN APRN 789.04 ABDOMINAL PAIN IN THE LEFT LOWER BELLY ( LLQ) 08/27/2012 AYLIN PURVIS APRN 789.04 ABDOMINAL PAIN IN THE LEFT LOWER BELLY ( LLQ) 08/27/2012 DARIUSZ AN APRN 789.04 ABDOMINAL PAIN IN THE LEFT LOWER BELLY ( LLQ) 08/27/2012 AYLIN PURVIS APRN 789.04 ABDOMINAL PAIN IN THE LEFT LOWER BELLY ( LLQ) 08/27/2012 AYLIN PURVIS APRN 789.04 ABDOMINAL PAIN IN THE LEFT LOWER BELLY ( LLQ) 08/27/2012 AYLIN PURVIS APRN 789.04 ABDOMINAL PAIN IN THE LEFT LOWER BELLY ( LLQ) 08/27/2012 LINSEY MORALES APRN 789.04 ABDOMINAL PAIN IN THE LEFT LOWER BELLY (LLQ ) 08/27/2012 AYLIN PURVIS APRN 789.04 ABDOMINAL PAIN IN THE LEFT LOWER BELLY ( LLQ) 08/27/2012 JESU BROWN MD 789.04 ABDOMINAL PAIN IN THE LEFT LOWER BELLY (LLQ) 08/27/2012 YUMI REES APRN 789.04 ABDOMINAL PAIN IN THE LEFT LOWER BELLY ( LLQ) 08/27/2012 DANIEL HOFFMAN APRN S 789.04 ABDOMINAL PAIN IN THE LEFT LOWER BELLY (LLQ) 08/27/2012 YUMI REES APRN 789.04 ABDOMINAL PAIN IN THE LEFT LOWER BELLY ( LLQ) 08/27/2012 AYLIN PURVIS APRN 789.04 ABDOMINAL PAIN IN THE LEFT LOWER BELLY ( LLQ) 08/27/2012 DANIEL HOFFMAN APRN S 789.04 ABDOMINAL PAIN IN THE LEFT LOWER BELLY (LLQ) 11/28/2012 466.0 BRONCHITIS, ACUTE 11/28/2012 466.0 BRONCHITIS, ACUTE 11/28/2012 466.0 BRONCHITIS, ACUTE 11/28/2012 466.0 BRONCHITIS, ACUTE 11/28/2012 AZUCENA POWELL APRN A 466.0 BRONCHITIS, ACUTE 11/28/2012 KERNS DO, BESSIE K 466.0 BRONCHITIS, ACUTE 11/28/2012 KERNS DO, BESSIE K 466.0 BRONCHITIS, ACUTE 11/28/2012 AYLIN PURIVS APRN T 466.0 BRONCHITIS, ACUTE 11/28/2012 KERNS DO, BESSIE K 466.0 BRONCHITIS, ACUTE 11/28/2012 AYLIN PURVIS APRN T 466.0 BRONCHITIS, ACUTE 11/28/2012 KERNS DO, BESSIE K 466.0 BRONCHITIS, ACUTE 11/28/2012 AYLIN PURVIS APRN T 466.0 BRONCHITIS, ACUTE 11/28/2012 KERNS DO, BESSIE K 466.0 BRONCHITIS, ACUTE 11/28/2012 KERNS DO, BESSIE K 466.0 BRONCHITIS, ACUTE 11/28/2012 LEOLA MICHELLE, MALLORIE 466.0 BRONCHITIS, ACUTE 11/28/2012 AYLIN PURVIS APRN T 466.0 BRONCHITIS, ACUTE 11/28/2012 AYLIN PURVIS APRN T 466.0 BRONCHITIS, ACUTE 11/28/2012 AYLIN PURVIS APRN T 466.0 BRONCHITIS, ACUTE 11/28/2012 DARIUSZ AN APRN L 466.0 BRONCHITIS, ACUTE 11/28/2012 AYLIN PURVIS APRN T 466.0 BRONCHITIS, ACUTE 11/28/2012 DHIRAJ AN APRNA L 466.0 BRONCHITIS, ACUTE 11/28/2012 AYLIN PURVIS APRN T 466.0 BRONCHITIS, ACUTE 11/28/2012 AYLIN PURVIS APRN T 466.0 BRONCHITIS, ACUTE 11/28/2012 HYUN OSUNA AYLIN [place] 466.0 BRONCHITIS, ACUTE 11/28/2012 CARMEN TUMBLING INSTRUCTOR, LINSEY Douglass 466.0 BRONCHITIS, ACUTE 11/28/2012 HYUN DE LOS SANTOSN, AYLIN T 466.0 BRONCHITIS, ACUTE 11/28/2012 KEVIN MICHELLE, JESU 466.0 BRONCHITIS, ACUTE 11/28/2012 NEGRITA TUMBLING INSTRUCTOR, YUMI R 466.0 BRONCHITIS, ACUTE 11/28/2012 YASMIN DE LOS SANTOSN, DANIEL S 466.0 BRONCHITIS, ACUTE 11/28/2012 NEGRITA TUMBLING INSTRUCTOR, YUMI R 466.0 BRONCHITIS, ACUTE 11/28/2012 HYUN DE LOS SANTOSN, AYLIN T 466.0 BRONCHITIS, ACUTE 11/28/2012 YASMIN TUMBLING INSTRUCTOR, DANIEL S 466.0 BRONCHITIS, ACUTE 01/08/2013 724.5 BACKACHE UNSPECIFIED 01/08/2013 788.41 URINARY FREQUENCY 01/08/2013 ANDRE OSUNA, AZUCENA A 724.5 BACKACHE UNSPECIFIED 01/08/2013 ANDRE DE LOS SANTOSN, AZUCENA A 788.41 URINARY FREQUENCY 01/08/2013 KERNS DO, BESSIE K 724.5 BACKACHE UNSPECIFIED 01/08/2013 KERNS DO, BESSIE K 788.41 URINARY FREQUENCY 01/08/2013 KERNS DO, BESSIE K 724.5 BACKACHE UNSPECIFIED 01/08/2013 KERNS DO, BESSIE K 788.41 URINARY FREQUENCY 01/08/2013 AYLIN PURVIS APRN T 724.5 BACKACHE UNSPECIFIED 01/08/2013 AYLIN PURVIS APRN 788.41 URINARY FREQUENCY 01/08/2013 KERNS DO, BESSIE K 724.5 BACKACHE UNSPECIFIED 01/08/2013 KERNS DO, BESSIE K 788.41 URINARY FREQUENCY 01/08/2013 AYLIN PURVIS APRN T 724.5 BACKACHE UNSPECIFIED 01/08/2013 AYLIN PURVIS APRN T 788.41 URINARY FREQUENCY 01/08/2013 KERNS DO, BESSIE K 724.5 BACKACHE UNSPECIFIED 01/08/2013 KERNS DO, BESSIE K 788.41 URINARY FREQUENCY 01/08/2013 AYLIN PURVIS APRN 724.5 BACKACHE UNSPECIFIED 01/08/2013 AYLIN PURVIS APRN 788.41 URINARY FREQUENCY 01/08/2013 KERNS DO, BESSIE K 724.5 BACKACHE UNSPECIFIED 01/08/2013 KERNS DO, BESSIE K 788.41 URINARY FREQUENCY 01/08/2013 KERNS DO, BESSIE K 724.5 BACKACHE UNSPECIFIED 01/08/2013 KERNS DO, BESSIE K 788.41 URINARY FREQUENCY 01/08/2013 MALLORIE BHAGAT MD 724.5 BACKACHE UNSPECIFIED 01/08/2013 MALLORIE BHAGAT MD 788.41 URINARY FREQUENCY 01/08/2013 AYLIN PURVIS APRN 724.5 BACKACHE UNSPECIFIED 01/08/2013 AYLIN PURVIS APRN T 788.41 URINARY FREQUENCY 01/08/2013 AYLIN PURVIS APRN T 724.5 BACKACHE UNSPECIFIED 01/08/2013 AYLIN PURVIS APRN 788.41 URINARY FREQUENCY 01/08/2013 AYLIN PURVIS APRN 724.5 BACKACHE UNSPECIFIED 01/08/2013 AYLIN PURVIS APRN 788.41 URINARY FREQUENCY 01/08/2013 JUVE OSUNA, DARIUSZ L 724.5 BACKACHE UNSPECIFIED 01/08/2013 MADL TUMBLING INSTRUCTOR, DARIUSZ L 788.41 URINARY FREQUENCY 01/08/2013 AYLIN PURVIS APRN T 724.5 BACKACHE UNSPECIFIED 01/08/2013 AYLIN PURVIS APRN T 788.41 URINARY FREQUENCY 01/08/2013 JUVE DE LOS SANTOSN, DARIUSZ L 724.5 BACKACHE UNSPECIFIED 01/08/2013 JUVE DE LOS SANTOSN, DARIUSZ L 788.41 URINARY FREQUENCY 01/08/2013 AYLIN PURVIS APRN T 724.5 BACKACHE UNSPECIFIED 01/08/2013 AYLIN PURVIS APRN 788.41 URINARY FREQUENCY 01/08/2013 AYLIN PURVIS APRN T 724.5 BACKACHE UNSPECIFIED 01/08/2013 AYLIN PURVIS APRN T 788.41 URINARY FREQUENCY 01/08/2013 AYLIN PURVIS APRN T 724.5 BACKACHE UNSPECIFIED 01/08/2013 AYLIN PURVIS APRN T 788.41 URINARY FREQUENCY 01/08/2013 LINSEY MORALES APRN 724.5 BACKACHE UNSPECIFIED 01/08/2013 LINSEY MORALES APRN 788.41 URINARY FREQUENCY 01/08/2013 AYLIN PURVIS APRN 724.5 BACKACHE UNSPECIFIED 01/08/2013 HYUN TUMBLING INSTRUCTOR, AYLIN T 788.41 URINARY FREQUENCY 01/08/2013 KEVIN MCIHELLE, JESU 724.5 BACKACHE UNSPECIFIED 01/08/2013 KEVIN MICHELLE, JESU 788.41 URINARY FREQUENCY 01/08/2013 NEGRITA TUMBLING INSTRUCTOR, YUMI R 724.5 BACKACHE UNSPECIFIED 01/08/2013 NEGRITA TUMBLING INSTRUCTOR, YUMI R 788.41 URINARY FREQUENCY 01/08/2013 YASMIN TUMBLING INSTRUCTOR, DANIEL S 724.5 BACKACHE UNSPECIFIED 01/08/2013 YASMIN TUMBLING INSTRUCTOR, DANIEL S 788.41 URINARY FREQUENCY 01/08/2013 NEGRITA TUMBLING INSTRUCTOR, YUMI R 724.5 BACKACHE UNSPECIFIED 01/08/2013 NEGRITA DE LOS SANTOSN, YUMI R 788.41 URINARY FREQUENCY 01/08/2013 AYLIN PURVIS APRN T 724.5 BACKACHE UNSPECIFIED 01/08/2013 AYLIN PURVIS APRN T 788.41 URINARY FREQUENCY 01/08/2013 YASMIN TUMBLING INSTRUCTOR, DANIEL S 724.5 BACKACHE UNSPECIFIED 01/08/2013 YASMIN OSUNA, DANIEL S 788.41 URINARY FREQUENCY 03/18/2013 EDGARDO PADILLA MD Ot 250.00 DIAB BYRON WO COMPL, TYPE II OR UNSPEC TY 03/18/2013 EDGARDO PADILLA MD Ot 272.0 PURE HYPERCHOLESTEROLEM 03/18/2013 EDGARDO PADILLA MD Ot 401.9 HYPERTENSION NOS 03/18/2013 EDGARDO PADILLA MD Ot 718.56 ANKYLOSIS-LOWER/LEG 03/18/2013 EDGARDO PADILLA MD Ot V43.65 KNEE JOINT REPLACEMENT STATUS 03/18/2013 EDGARDO PADILLA MD Ot V57.1 PHYSICAL THERAPY NEC 03/18/2013 EDGARDO PADILLA MD Ot V58.69 OT MED,LT,CURRENT USE 05/11/2013 AYLIN PURVIS APRN 008.8 GASTROENTERITIS, VIRAL 05/11/2013 BESSIE KERNS DO 008.8 GASTROENTERITIS, VIRAL 05/11/2013 BESSIE KERNS DO 008.8 GASTROENTERITIS, VIRAL 05/11/2013 MALLORIE BHAGAT MD 008.8 GASTROENTERITIS, VIRAL 05/11/2013 AYLIN PURVIS APRN 008.8 GASTROENTERITIS, VIRAL 05/11/2013 AYLIN PURVIS APRN 008.8 GASTROENTERITIS, VIRAL 05/11/2013 HYUN TUMBLING INSTRUCTOR, AYLIN T 008.8 GASTROENTERITIS, VIRAL 05/11/2013 ZENAIDAL TUMBLING INSTRUCTOR, DARIUSZ L 008.8 GASTROENTERITIS, VIRAL 05/11/2013 HYUN TUMBLING INSTRUCTOR, AYLIN T 008.8 GASTROENTERITIS, VIRAL 05/11/2013 MADL TUMBLING INSTRUCTOR, DARIUSZ L 008.8 GASTROENTERITIS, VIRAL 05/11/2013 HYUN TUMBLING INSTRUCTOR, AYLIN T 008.8 GASTROENTERITIS, VIRAL 05/11/2013 HYUN DE LOS SANTOSN, AYLIN T 008.8 GASTROENTERITIS, VIRAL 05/11/2013 HYUN TUMBLING INSTRUCTOR, AYLIN T 008.8 GASTROENTERITIS, VIRAL 05/11/2013 CARMEN TUMBLING INSTRUCTOR, LINSEY Douglass 008.8 GASTROENTERITIS, VIRAL 05/11/2013 HYUN TUMBLING INSTRUCTOR, AYLIN T 008.8 GASTROENTERITIS, VIRAL 05/11/2013 KEVIN MICHELLE, JESU 008.8 GASTROENTERITIS, VIRAL 05/11/2013 NEGRITA TUMBLING INSTRUCTOR, YUMI R 008.8 GASTROENTERITIS, VIRAL 05/11/2013 YASMIN TUMBLING INSTRUCTOR, DANIEL S 008.8 GASTROENTERITIS, VIRAL 05/11/2013 NEGRITA TUMBLING INSTRUCTOR, YUMI R 008.8 GASTROENTERITIS, VIRAL 05/11/2013 HYUN TUMBLING INSTRUCTOR, AYLIN T 008.8 GASTROENTERITIS, VIRAL 05/11/2013 YASMIN TUMBLING INSTRUCTOR, DANIEL S 008.8 GASTROENTERITIS, VIRAL 10/12/2013 HYUN OSUNA, AYLIN T 780.79 FATIGUE 10/12/2013 AYLIN PURVIS APRN T 784.91 POSTNASAL DRIP 10/12/2013 AYLIN PURVIS APRN T 780.79 FATIGUE 10/12/2013 AYLIN PURVIS APRN T 784.91 POSTNASAL DRIP 10/12/2013 ZENAIDA TUMBLING INSTRUCTOR, DARIUSZ L 780.79 FATIGUE 10/12/2013 [facility] TUMBLING INSTRUCTOR, DARIUSZ L 784.91 POSTNASAL DRIP 10/12/2013 AYLIN PURVIS APRN T 780.79 FATIGUE 10/12/2013 AYLIN PURVIS APRN T 784.91 POSTNASAL DRIP 10/12/2013 JUVE OSUNA, DARIUSZ L 780.79 FATIGUE 10/12/2013 JUVE TUMBLING INSTRUCTOR, DARIUSZ L 784.91 POSTNASAL DRIP 10/12/2013 AYLIN PURVIS APRN T 780.79 FATIGUE 10/12/2013 AYLIN PURVIS APRN T 784.91 POSTNASAL DRIP 10/12/2013 AYLIN PURVIS APRN T 780.79 FATIGUE 10/12/2013 AYLIN PURVIS APRN 784.91 POSTNASAL DRIP 10/12/2013 AYLIN PURVIS APRN 780.79 FATIGUE 10/12/2013 AYLIN PURVIS APRN 784.91 POSTNASAL DRIP 10/12/2013 LINSEY MORALES APRN 780.79 FATIGUE 10/12/2013 LINSEY MORALES APRN D 784.91 POSTNASAL DRIP 10/12/2013 AYLIN PURVIS APRN 780.79 FATIGUE 10/12/2013 AYLIN PURVIS APRN 784.91 POSTNASAL DRIP 10/12/2013 KEVIN MICHELLE, JESU 780.79 FATIGUE 10/12/2013 JESU BROWN MD 784.91 POSTNASAL DRIP 10/12/2013 NEGRITA OSUNA, YUMI R 780.79 FATIGUE 10/12/2013 NEGRITA OSUNA, YUMI R 784.91 POSTNASAL DRIP 10/12/2013 YASMIN OSUNA DANIEL S 780.79 FATIGUE 10/12/2013 YASMIN OSUNA DANIEL S 784.91 POSTNASAL DRIP 10/12/2013 NEGRITA OSUNA, YUMI R 780.79 FATIGUE 10/12/2013 NEGRITA OSUNA, YUMI R 784.91 POSTNASAL DRIP 10/12/2013 AYLIN PURVIS APRN T 780.79 FATIGUE 10/12/2013 AYLIN PURVIS APRN T 784.91 POSTNASAL DRIP 10/12/2013 YASMIN OSUNA DANIEL S 780.79 FATIGUE 10/12/2013 JUAN PABLO HOFFMAN APRNNDA S 784.91 POSTNASAL DRIP 11/02/2013 OTHER, UNLISTED Ot 722.0 CERVICAL DISC DISPLACMNT 11/02/2013 OTHER, UNLISTED Ot 737.20 LORDOSIS NOS 11/02/2013 OTHER, UNLISTED Ot 782.0 SKIN SENSATION DISTURB 11/02/2013 OTHER, UNLISTED Ot V57.1 PHYSICAL THERAPY NEC 12/17/2013 AYLIN PURVIS LACE WINDER Ot 327.23 OBSTRUCTIVE SLEEP APNEA (ADULT) ( PEDIATR 01/01/2014 AYLIN PURVIS APRN 327.23 SLEEP APNEA 01/01/2014 DARIUSZ AN APRN 327.23 SLEEP APNEA 01/01/2014 AYLIN PURVIS APRN 327.23 SLEEP APNEA 01/01/2014 DARIUSZ AN APRN L 327.23 SLEEP APNEA 01/01/2014 AYLIN PURVIS APRN 327.23 SLEEP APNEA 01/01/2014 AYLIN PURVIS APRN 327.23 SLEEP APNEA 01/01/2014 AYLIN PURVIS APRN 327.23 SLEEP APNEA 01/01/2014 LINSEY MORALES APRN 327.23 SLEEP APNEA 01/01/2014 AYLIN PURVIS APRN 327.23 SLEEP APNEA 01/01/2014 JESU BROWN MD 327.23 SLEEP APNEA 01/01/2014 NEGRITA OSUNA YUMI R 327.23 SLEEP APNEA 01/01/2014 ALANIS HOFFMAN APRNA S 327.23 SLEEP APNEA 01/01/2014 AYAH REES APRNINA R 327.23 SLEEP APNEA 01/01/2014 AYLIN PURVIS APRN 327.23 SLEEP APNEA 01/01/2014 DANIEL HOFFMAN APRN S 327.23 SLEEP APNEA 01/08/2014 DARIUSZ AN APRN L 719.46 PAIN IN JOINT INVOLVING LOWER LEG 01/08/2014 AYLIN PURVIS APRN 719.46 PAIN IN JOINT INVOLVING LOWER LEG 01/08/2014 DARIUSZ AN APRN L 719.46 PAIN IN JOINT INVOLVING LOWER LEG 01/08/2014 AYLIN PURVIS APRN 719.46 PAIN IN JOINT INVOLVING LOWER LEG 01/08/2014 AYLIN PURVIS APRN 719.46 PAIN IN JOINT INVOLVING LOWER LEG 01/08/2014 AYLIN PURVIS APRN 719.46 PAIN IN JOINT INVOLVING LOWER LEG 01/08/2014 LINSEY MORALES APRN 719.46 PAIN IN JOINT INVOLVING LOWER LEG 01/08/2014 AYLIN PURVIS APRN 719.46 PAIN IN JOINT INVOLVING LOWER LEG 01/08/2014 JESU BROWN MD 719.46 PAIN IN JOINT INVOLVING LOWER LEG 01/08/2014 AYAH REES APRNINA R 719.46 PAIN IN JOINT INVOLVING LOWER LEG 01/08/2014 ALANIS HOFFMAN APRNA S 719.46 PAIN IN JOINT INVOLVING LOWER LEG 01/08/2014 YUMI REES APRN R 719.46 PAIN IN JOINT INVOLVING LOWER LEG 01/08/2014 AYLIN PURVIS APRN 719.46 PAIN IN JOINT INVOLVING LOWER LEG 01/08/2014 DANIEL HOFFMAN APRN S 719.46 PAIN IN JOINT INVOLVING LOWER LEG 01/11/2014 AYLIN PURVIS APRN 844.9 SPRAIN/STRAIN KNEE/LEG 01/11/2014 DARIUSZ AN APRN 844.9 SPRAIN/STRAIN KNEE/LEG 01/11/2014 AYLIN PURVIS APRN T 844.9 SPRAIN/STRAIN KNEE/LEG 01/11/2014 AYLIN PURVIS APRN T 844.9 SPRAIN/STRAIN KNEE/LEG 01/11/2014 AYLIN PURVIS APRN T 844.9 SPRAIN/STRAIN KNEE/LEG 01/11/2014 LINSEY MORALES APRN 844.9 SPRAIN/STRAIN KNEE/LEG 01/11/2014 AYLIN PURVIS APRN 844.9 SPRAIN/STRAIN KNEE/LEG 01/11/2014 JESU BROWN MD 844.9 SPRAIN/STRAIN KNEE/LEG 01/11/2014 AYAH REES APRNINA R 844.9 SPRAIN/STRAIN KNEE/LEG 01/11/2014 DANIEL HOFFMAN APRN S 844.9 SPRAIN/STRAIN KNEE/LEG 01/11/2014 NEGRITA OSUNA YUMI R 844.9 SPRAIN/STRAIN KNEE/LEG 01/11/2014 AYLIN PURVIS APRN T 844.9 SPRAIN/STRAIN KNEE/LEG 01/11/2014 ALANIS HOFFMAN APRNA S 844.9 SPRAIN/STRAIN KNEE/LEG 02/25/2014 LINSEY MORALES APRN D 836.0 TEAR OF MEDIAL CARTILAGE OR MENISCUS OF KNEE CURRENT 02/25/2014 AYLIN PURVIS APRN 836.0 TEAR OF MEDIAL CARTILAGE OR MENISCUS OF KNEE CURRENT 02/25/2014 JESU BROWN MD 836.0 TEAR OF MEDIAL CARTILAGE OR MENISCUS OF KNEE CURRENT 02/25/2014 NEGRITA OSUNA YUMI R 836.0 TEAR OF MEDIAL CARTILAGE OR MENISCUS OF KNEE CURRENT 02/25/2014 DANIEL HOFFMAN APRN S 836.0 TEAR OF MEDIAL CARTILAGE OR MENISCUS OF KNEE CURRENT 02/25/2014 NEGRITA OSUNA YUMI R 836.0 TEAR OF MEDIAL CARTILAGE OR MENISCUS OF KNEE CURRENT 02/25/2014 AYLIN PURVIS APRN 836.0 TEAR OF MEDIAL CARTILAGE OR MENISCUS OF KNEE CURRENT 02/25/2014 DANIEL HOFFMAN APRN S 836.0 TEAR OF MEDIAL CARTILAGE OR MENISCUS OF KNEE CURRENT 03/17/2014 EDGARDO PADILLA MD Ot 250.00 DIAB [place] WO COMPL, TYPE II OR UNSPEC TY 03/17/2014 EDGARDO PADILLA MD Ot 272.0 PURE HYPERCHOLESTEROLEM 03/17/2014 EDGARDO PADILLA MD Ot 401.9 HYPERTENSION NOS 03/17/2014 EDGARDO PADILLA MD Ot 716.90 ARTHROPATHY NOS-UNSPEC 03/17/2014 EDGARDO PADILLA MD Ot 717.7 CHONDROMALACIA PATELLAE 03/17/2014 EDGARDO PADILLA MD Ot 733.92 CHONDROMALACIA 03/17/2014 EDGARDO PADILLA MD Ot V58.69 OTH MED,LT,CURRENT USE 03/23/2014 AYLIN BOWENS DO Ot 250.00 DIAB [place] WO COMPL, TYPE II OR UNSPEC TY 03/23/2014 AYLIN BOWENS DO Ot 401.9 HYPERTENSION NOS 03/23/2014 AYLIN BOWENS DO Ot 786.50 CHEST PAIN NOS 03/23/2014 AYLIN BOWENS DO Ot 786.59 CHEST PAIN NEC 03/23/2014 AYLIN BOWENS DO Ot V58.69 OTH MED,LT,CURRENT USE 05/05/2014 JESU BROWN MD 079.99 VIRAL SYNDROME 05/05/2014 JESU BROWN MD 786.2 COUGH 05/05/2014 YUMI REES APRN R 079.99 VIRAL SYNDROME 05/05/2014 AYAH REES APRNINA R 786.2 COUGH 05/05/2014 DANIEL HOFFMAN APRN S 079.99 VIRAL SYNDROME 05/05/2014 DANIEL HOFFMAN APRN S 786.2 COUGH 05/05/2014 NEGRITA OSUNA YUMI R 079.99 VIRAL SYNDROME 05/05/2014 AYAH REES APRNINA R 786.2 COUGH 05/05/2014 AYLIN PURVIS APRN 079.99 VIRAL SYNDROME 05/05/2014 AYLIN PURVIS APRN 786.2 COUGH 05/05/2014 DANIEL HOFFMAN APRN S 079.99 VIRAL SYNDROME 05/05/2014 DANIEL HOFFMAN APRN S 786.2 COUGH 06/04/2014 NEGRITA TUMBLING INSTRUCTOR, YUMI R 693.8 DERMATITIS DUE TO OTHER SPECIFIED SUBSTANCES TAKEN INTERNALLY 06/04/2014 YASMIN TUMBLING INSTRUCTOR, DANIEL S 693.8 DERMATITIS DUE TO OTHER SPECIFIED SUBSTANCES TAKEN INTERNALLY 06/04/2014 NEGRITA TUMBLING INSTRUCTOR, YUMI R 693.8 DERMATITIS DUE TO OTHER SPECIFIED SUBSTANCES TAKEN INTERNALLY 06/04/2014 AYLIN PURVIS APRN T 693.8 DERMATITIS DUE TO OTHER SPECIFIED SUBSTANCES TAKEN INTERNALLY 06/04/2014 DANIEL HOFFMAN APRN S 693.8 DERMATITIS DUE TO OTHER SPECIFIED SUBSTANCES TAKEN INTERNALLY 06/15/2014 NEGRITA TUMBLING INSTRUCTOR, YUMI R 133.0 SCABIES 06/15/2014 YASMIN TUMBLING INSTRUCTOR, DANIEL S 133.0 SCABIES 06/15/2014 NEGRITA [place], YUMI R 133.0 SCABIES 06/15/2014 AYLIN PURVIS APRN T 133.0 SCABIES 06/15/2014 ALANIS HOFFMAN APRNA S 133.0 SCABIES 07/29/2014 AYAH REES APRNINA R 682.4 CELLULITIS AND ABSCESS OF HAND EXCEPT FINGERS AND THUMB 07/29/2014 AYLIN PURVIS APRN 682.4 CELLULITIS AND ABSCESS OF HAND EXCEPT FINGERS AND THUMB 07/29/2014 ALANIS HOFFMAN APRNA S 682.4 CELLULITIS AND ABSCESS OF HAND EXCEPT FINGERS AND THUMB 10/05/2014 AYLIN PURVISP Ot 190.6 10/05/2014 AYLIN PURVISP Ot 715.36 10/05/2014 AYLIN PURVISP Ot 727.09 10/05/2014 AYLIN PURVISP Ot 727.51 10/05/2014 AYLIN PURVISP Ot 844.9 10/05/2014 AYLIN PURVISP Ot E000.8 10/05/2014 AYLIN PURVISP Ot E849.6 10/05/2014 AYLIN PURVISP Ot E927.0 08/18/2015 Ot 250.00 08/18/2015 Ot 786.50 08/18/2015 Ot V58.66 08/18/2015 Ot V58.69 08/18/2015 Ot 715.96 08/18/2015 Ot V57.1 08/18/2015 Ot V72.63 08/18/2015 Ot V72.81 08/18/2015 Ot V72.83 08/18/2015 Ot 727.51 08/18/2015 Ot 729.5 08/18/2015 Ot 562.10 08/18/2015 Ot 592.0 08/18/2015 Ot 724.2 08/18/2015 Ot V45.79 08/18/2015 Ot 786.09 08/18/2015 Ot 397.0 08/18/2015 Ot 424.0 08/18/2015 Ot 786.09 08/18/2015 Ot V76.12 08/18/2015 Ot 789.04 08/18/2015 VALERIE MICHELLE, EDGARDO Kohli Ot 726.60 08/18/2015 VALERIE MICHELLE, EDGARDO Kohli Ot V72.81 08/18/2015 VALERIE MICHELLE, EDGARDO Kohli Ot V74.8 08/18/2015 YOSI MICHELLE, TANYA T Ot V16.3 08/18/2015 YOSI MICHELLE, TANYA T Ot V76.11 08/18/2015 HYUN AYLIN [place] LACE WINDER Ot 190.6 08/18/2015 HYUN AYLIN [place] LACE WINDER Ot 715.36 08/18/2015 HYUN AYLIN [place] LACE WINDER Ot 727.09 08/18/2015 HYUN AYLIN [place] LACE WINDER Ot 727.51 08/18/2015 HYUN AYLIN [place] LACE WINDER Ot 844.9 08/18/2015 HYUN AYLIN [place] LACE WINDER Ot E000.8 08/18/2015 HYUN AYLIN [place] LACE WINDER Ot E849.6 08/18/2015 HYUN AYLIN [place] LACE WINDER Ot E927.0 08/18/2015 VALERIE MICHELLE, EDGARDO Kohli Ot 717.3 08/18/2015 VALERIE MICHELLE, EDGARDO Kohli Ot V72.83 08/18/2015 VALERIE MICHELLE, EDGARDO Kohli Ot V74.8 08/18/2015 OTHER, UNLISTED Ot V76.12 08/18/2015 Ot 793.89 08/18/2015 Ot 721.0 08/18/2015 Ot 724.2 08/18/2015 Ot 729.5 08/18/2015 Ot 782.0 08/18/2015 Ot V45.4 09/15/2015 OTHER, UNLISTED Ot V76.12 OTH SCREEN MAMMO-MALIGN NEOPLASM OF [place] 10/25/2015 OTHER, UNLISTED Ot V76.12 OTH SCREEN MAMMO-MALIGN NEOPLASM OF [place] 10/26/2015 OTHER, UNLISTED Ot V76.12 OTH SCREEN MAMMO-MALIGN NEOPLASM OF [place] 10/27/2015 Ot 715.96 OSTEOARTHROS NOS-L/LEG 10/27/2015 Ot V57.1 PHYSICAL THERAPY NEC 10/27/2015 Ot V72.63 PRE-PROCEDURAL LABORATORY EXAMINATION 10/27/2015 Ot V72.81 [id number] CARDIOVASCULAR 10/27/2015 Ot V72.83 EXAM PRE-OPERATIVE NEC 10/27/2015 Ot 727.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 CYST 10/27/2015 Ot 729.5 PAIN IN LIMB 10/27/2015 Ot 562.10 DIVERTICULOSIS COLON (W/O MENT OF HEMORR 10/27/2015 Ot 592.0 CALCULUS OF KIDNEY 10/27/2015 Ot 724.2 LUMBAGO 10/27/2015 Ot V45.79 ACQRD ABSENCE OF OTH ORGAN 10/27/2015 Ot 786.09 RESPIRATORY ABNORM NEC 10/27/2015 Ot 397.0 TRICUSPID VALVE DISEASE 10/27/2015 Ot 424.0 MITRAL VALVE DISORDER 10/27/2015 Ot 786.09 RESPIRATORY ABNORM NEC 10/27/2015 Ot V76.12 OTH SCREEN MAMMO-MALIGN NEOPLASM OF FRANCES[place] 10/27/2015 Ot 789.04 ABDOMINAL PAIN, LEFT LOWER QUADRANT 10/27/2015 VALERIE MICHELLE, EDGARDO Kohli Ot 726.60 ENTHESOPATHY OF KNEE NOS 10/27/2015 VALERIE MICHELLE, EDGARDO Kohli Ot V72.81 XFSQ-YHJ-UVCVVVNAP CARDIOVASCULAR 10/27/2015 VALERIE MICHELLE, EDGARDO Kohli Ot V74.8 SCREEN-BACTERIAL DIS NEC 10/27/2015 YOSI MICHELLE, TANYA Paniagua Ot V16.3 FAMILY HX-BREAST MALIG 10/27/2015 YOSI MICHELLE, TANYA Paniagua Ot V76.11 SCRN MAMMO-HIGH RISK PT, MALIGNANT NEOPL 10/27/2015 AYLIN PURVIS Ot 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 10/27/2015 AYLIN PURVIS Ot 715.36 LOC OSTEOARTH NOS-L/LEG 10/27/2015 AYLIN PURVIS Ot 727.09 SYNOVITIS NEC 10/27/2015 AYLIN PURVIS Ot 727.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 CYST 10/27/2015 AYLIN PURVIS Ot 844.9 SPRAIN OF KNEE LEG NOS 10/27/2015 AYLIN PURVIS LACE WINDER Ot E000.8 OTHER EXTERNAL CAUSE STATUS 10/27/2015 AYLIN PURVIS HU Ot E849.6 ACCIDENT IN PUBLIC BLDG 10/27/2015 AYLIN PURVIS HU Ot E927.0 OVEREXERTION FROM SUDDEN STRENUOUS MOVEM 10/27/2015 VALERIE MICHELLE, EDGARDO Kohli Ot 717.3 DERANG MED MENISCUS NEC 10/27/2015 EDGARDO PADILLA MD Ot V72.83 EXAM PRE-OPERATIVE NEC 10/27/2015 EDGARDO PADILLA MD Ot V74.8 SCREEN-BACTERIAL DIS NEC 10/27/2015 OTHER, UNLISTED Ot V76.12 OTH SCREEN MAMMO-MALIGN NEOPLASM OF [place]ES[place] 10/27/2015 AYLIN PURVIS HU Ot M54.12 RADICULOPATHY, CERVICAL REGION 10/28/2015 AYLIN PURVIS HU Ot M54.12 RADICULOPATHY, CERVICAL REGION 10/28/2015 AYLIN PURVIS HU Ot M54.12 RADICULOPATHY, CERVICAL REGION 11/09/2015 OTHER, UNLISTED Ot V76.12 OTH SCREEN MAMMO-MALIGN NEOPLASM OF [place] 11/16/2015 AYLIN PURVIS HU Ot M54.12 RADICULOPATHY, CERVICAL REGION 11/28/2015 AYLIN PURVIS HU Ot M54.12 RADICULOPATHY, CERVICAL REGION 01/17/2016 Ot 715.96 OSTEOARTHROS NOS-L/LEG 01/17/2016 Ot V57.1 PHYSICAL THERAPY NEC 01/17/2016 Ot V72.63 PRE-PROCEDURAL LABORATORY EXAMINATION 01/17/2016 Ot V72.81 ANAA-BXY-NTJMLXFOS CARDIOVASCULAR 01/17/2016 Ot V72.83 EXAM PRE-OPERATIVE NEC 01/17/2016 Ot 727.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 CYST 01/17/2016 Ot 729.5 PAIN IN LIMB 01/17/2016 Ot 562.10 DIVERTICULOSIS COLON (W/O MENT OF HEMORR 01/17/2016 Ot 592.0 CALCULUS OF KIDNEY 01/17/2016 Ot 724.2 LUMBAGO 01/17/2016 Ot V45.79 ACQRD ABSENCE OF OTH ORGAN 01/17/2016 Ot 786.09 RESPIRATORY ABNORM NEC 01/17/2016 Ot 397.0 TRICUSPID VALVE DISEASE 01/17/2016 Ot 424.0 MITRAL VALVE DISORDER 01/17/2016 Ot 786.09 RESPIRATORY ABNORM NEC 01/17/2016 Ot V76.12 OTH SCREEN MAMMO-MALIGN NEOPLASM OF [place]ES[place] 01/17/2016 Ot 789.04 ABDOMINAL PAIN, LEFT LOWER QUADRANT 01/17/2016 VALERIE MICHELLE, EDGARDO Kohli Ot 726.60 ENTHESOPATHY OF KNEE NOS 01/17/2016 VALERIE MICHELLE, EDGARDO Kohli Ot V72.81 XAMN-DOW-PYDEGJTAD CARDIOVASCULAR 01/17/2016 VALERIE MICHELLE, EDGARDO Kohli Ot V74.8 SCREEN-BACTERIAL DIS NEC 01/17/2016 YOSI MICHELLE, TANYA Paniagua Ot V16.3 FAMILY HX-BREAST MALIG 01/17/2016 YOSI MICHELLE, TANYA Paniagua Ot V76.11 SCRN MAMMO-HIGH RISK PT, MALIGNANT NEOPL 01/17/2016 AYLIN PURVISP Ot 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 01/17/2016 AYLIN PURVIS Ot 715.36 LOC OSTEOARTH NOS-L/LEG 01/17/2016 AYLIN PURVIS LACE WINDER Ot 727.09 SYNOVITIS NEC 01/17/2016 AYLIN PURVIS LACE WINDER Ot 727.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 CYST 01/17/2016 AYLIN PURVISP Ot 844.9 SPRAIN OF KNEE LEG NOS 01/17/2016 AYLIN PURVIS LACE WINDER Ot E000.8 OTHER EXTERNAL CAUSE STATUS 01/17/2016 AYLIN PURVIS Ot E849.6 ACCIDENT IN PUBLIC BLDG 01/17/2016 AYLIN PURVIS Ot E927.0 OVEREXERTION FROM SUDDEN STRENUOUS MOVEM 01/17/2016 VALERIE MICHELLE, EDGARDO Kohli Ot 717.3 DERANG MED MENISCUS NEC 01/17/2016 EDGARDO PADILLA MD Ot V72.83 EXAM PRE-OPERATIVE NEC 01/17/2016 EDGARDO PADILLA MD Ot V74.8 SCREEN-BACTERIAL DIS NEC 01/17/2016 OTHER, UNLISTED Ot V76.12 OTH SCREEN MAMMO-MALIGN NEOPLASM OF [place] 01/17/2016 AYLIN PURVIS Ot M54.12 RADICULOPATHY, CERVICAL REGION 01/17/2016 CHARITY MICHELLE, DORA Paniagua Ot E11.9 TYPE 2 DIABETES MELLITUS WITHOUT COMPLIC 01/17/2016 DORA NASH MD Ot I10 ESSENTIAL (PRIMARY) HYPERTENSION 01/17/2016 DORA NASH MD Ot K76.0 FATTY (CHANGE OF) LIVER, NOT ELSEWHERE C 01/17/2016 DORA NASH MD Ot N13.2 HYDRONEPHROSIS WITH RENAL AND URETERAL C 01/17/2016 DORA NASH MD Ot R10.32 LEFT LOWER QUADRANT PAIN 01/17/2016 DORA NASH MD Ot R11.2 NAUSEA WITH VOMITING, UNSPECIFIED 01/17/2016 DORA NASH MD Ot Z79.82 DETENTION (CURRENT) USE OF ASPIRIN 01/17/2016 DORA NASH MD Ot Z79.899 OTHER [employer] (CURRENT) DRUG THERAPY 01/19/2016 DORA NASH MD Ot E11.9 TYPE 2 DIABETES MELLITUS WITHOUT COMPLIC 01/19/2016 DORA NASH MD Ot I10 ESSENTIAL (PRIMARY) HYPERTENSION 01/19/2016 DORA NASH MD Ot K76.0 FATTY (CHANGE OF) LIVER, NOT ELSEWHERE C 01/19/2016 DORA NASH MD Ot N13.2 HYDRONEPHROSIS WITH RENAL AND URETERAL C 01/19/2016 DORA NASH MD Ot R10.32 LEFT LOWER QUADRANT PAIN 01/19/2016 DORA NASH MD Ot R11.2 NAUSEA WITH VOMITING, UNSPECIFIED 01/19/2016 DORA NASH MD Ot Z79.82 [employer] (CURRENT) USE OF ASPIRIN 01/19/2016 DORA NASH MD Ot Z79.899 OTHER DETENTION (CURRENT) DRUG THERAPY 01/23/2016 Ot 715.96 OSTEOARTHROS NOS-L/LEG 01/23/2016 Ot V57.1 PHYSICAL THERAPY NEC 01/23/2016 Ot V72.63 PRE-PROCEDURAL LABORATORY EXAMINATION 01/23/2016 Ot V72.81 OYTC-MZQ-ERMNRTYYV CARDIOVASCULAR 01/23/2016 Ot V72.83 EXAM PRE-OPERATIVE NEC 01/23/2016 Ot 727.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 CYST 01/23/2016 Ot 729.5 PAIN IN LIMB 01/23/2016 Ot 562.10 DIVERTICULOSIS COLON (W/O MENT OF HEMORR 01/23/2016 Ot 592.0 CALCULUS OF KIDNEY 01/23/2016 Ot 724.2 LUMBAGO 01/23/2016 Ot V45.79 ACQRD ABSENCE OF OTH ORGAN 01/23/2016 Ot 786.09 RESPIRATORY ABNORM NEC 01/23/2016 Ot 397.0 TRICUSPID VALVE DISEASE 01/23/2016 Ot 424.0 MITRAL VALVE DISORDER 01/23/2016 Ot 786.09 RESPIRATORY ABNORM NEC 01/23/2016 Ot V76.12 OTH SCREEN MAMMO-MALIGN NEOPLASM OF [place] 01/23/2016 Ot 789.04 ABDOMINAL PAIN, LEFT LOWER QUADRANT 01/23/2016 VALERIE MICHELLE, EDGARDO Kohli Ot 726.60 ENTHESOPATHY OF KNEE NOS 01/23/2016 VALERIE MICHELLE, EDGARDO Kohli Ot V72.81 SUSA-JYS-JZZXOGGLH CARDIOVASCULAR 01/23/2016 EDGARDO PADILLA MD Ot V74.8 SCREEN-BACTERIAL DIS NEC 01/23/2016 YOSI MICHELLE, TANYA Paniagua Ot V16.3 FAMILY HX-BREAST MALIG 01/23/2016 YOSI MICHELLE, TANYA Paniagua Ot V76.11 SCRN MAMMO-HIGH RISK PT, MALIGNANT NEOPL 01/23/2016 AYLIN PURVIS Ot 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 01/23/2016 AYLIN PURVIS Ot 715.36 LOC OSTEOARTH NOS-L/LEG 01/23/2016 AYLIN PURVIS Ot 727.09 SYNOVITIS NEC 01/23/2016 AYLIN PURVIS Ot 727.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 CYST 01/23/2016 AYLIN PURVIS Ot 844.9 SPRAIN OF KNEE LEG NOS 01/23/2016 AYLIN PURVIS Ot E000.8 OTHER EXTERNAL CAUSE STATUS 01/23/2016 AYLIN PURVIS Ot E849.6 ACCIDENT IN PUBLIC BLDG 01/23/2016 AYLIN PURVIS Ot E927.0 OVEREXERTION FROM SUDDEN STRENUOUS MOVEM 01/23/2016 VALERIE MICHELLE, EDGARDO Kohli Ot 717.3 DERANG MED MENISCUS NEC 01/23/2016 EDGARDO PADILLA MD Ot V72.83 EXAM PRE-OPERATIVE NEC 01/23/2016 EDGARDO PADILLA MD Ot V74.8 SCREEN-BACTERIAL DIS NEC 01/23/2016 OTHER, UNLISTED Ot V76.12 OTH SCREEN MAMMO-MALIGN NEOPLASM OF [place] 01/23/2016 AYLIN PURVIS Ot M54.12 RADICULOPATHY, CERVICAL REGION 01/24/2016 MILA MICHELLE, ANA LILIA Meade Ot N20.0 CALCULUS OF KIDNEY 01/26/2016 Ot 715.96 OSTEOARTHROS NOS-L/LEG 01/26/2016 Ot V57.1 PHYSICAL THERAPY NEC 01/26/2016 Ot V72.63 PRE-PROCEDURAL LABORATORY EXAMINATION 01/26/2016 Ot V72.81 PMNW-NKL-DQDWGZKKF CARDIOVASCULAR 01/26/2016 Ot V72.83 EXAM PRE-OPERATIVE NEC 01/26/2016 Ot 727.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 CYST 01/26/2016 Ot 729.5 PAIN IN LIMB 01/26/2016 Ot 562.10 DIVERTICULOSIS COLON (W/O MENT OF HEMORR 01/26/2016 Ot 592.0 CALCULUS OF KIDNEY 01/26/2016 Ot 724.2 LUMBAGO 01/26/2016 Ot V45.79 ACQRD ABSENCE OF OTH ORGAN 01/26/2016 Ot 786.09 RESPIRATORY ABNORM NEC 01/26/2016 Ot 397.0 TRICUSPID VALVE DISEASE 01/26/2016 Ot 424.0 MITRAL VALVE DISORDER 01/26/2016 Ot 786.09 RESPIRATORY ABNORM NEC 01/26/2016 Ot V76.12 OTH SCREEN MAMMO-MALIGN NEOPLASM OF [place] 01/26/2016 Ot 789.04 ABDOMINAL PAIN, LEFT LOWER QUADRANT 01/26/2016 VALERIE MICHELLE, EDGARDO Kohli Ot 726.60 ENTHESOPATHY OF KNEE NOS 01/26/2016 VALERIE MICHELLE, EDGARDO Kohli Ot V72.81 CXLJ-OTY-PDUFDLWXR CARDIOVASCULAR 01/26/2016 VALERIE MICHELLE, EDGARDO Kohli Ot V74.8 SCREEN-BACTERIAL DIS NEC 01/26/2016 YOSI MICHELLE, TANYA Paniagua Ot V16.3 FAMILY HX-BREAST MALIG 01/26/2016 YOSI MICHELLE, TANYA Paniagua Ot V76.11 SCRN MAMMO-HIGH RISK PT, MALIGNANT NEOPL 01/26/2016 AYLIN PURVIS Ot 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 01/26/2016 AYLIN PURVIS Ot 715.36 LOC OSTEOARTH NOS-L/LEG 01/26/2016 AYLIN PURVIS HU Ot 727.09 SYNOVITIS NEC 01/26/2016 AYLIN PURVIS LACE WINDER Ot 727.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 CYST 01/26/2016 AYLIN PURVIS LACE WINDER Ot 844.9 SPRAIN OF KNEE LEG NOS 01/26/2016 AYLIN PURVIS LACE WINDER Ot E000.8 OTHER EXTERNAL CAUSE STATUS 01/26/2016 AYLIN PURVIS HU Ot E849.6 ACCIDENT IN PUBLIC BLDG 01/26/2016 HYUN AYLIN Paniagua LACE WINDER Ot E927.0 OVEREXERTION FROM SUDDEN STRENUOUS MOVEM 01/26/2016 VALERIE MICHELLE, EDGARDO Kohli Ot 717.3 DERANG MED MENISCUS NEC 01/26/2016 EDGARDO PADILLA MD Ot V72.83 EXAM PRE-OPERATIVE NEC 01/26/2016 EDGARDO PADILLA MD Ot V74.8 SCREEN-BACTERIAL DIS NEC 01/26/2016 OTHER, UNLISTED Ot V76.12 OTH SCREEN MAMMO-MALIGN NEOPLASM OF [place] 01/26/2016 HYUN AYLIN Paniagua LACE WINDER Ot M54.12 RADICULOPATHY, CERVICAL REGION 01/26/2016 ANA LILIA ZARAGOZA MD Ot N20.0 CALCULUS OF KIDNEY 01/26/2016 ANA LILIA ZARAGOZA MD Ot N20.1 CALCULUS OF URETER 01/26/2016 ANA LILIA ZARAGOZA MD Ot Z01.818 ENCOUNTER FOR OTHER PREPROCEDURAL EXAMIN 01/26/2016 ANA LILIA ZARAGOZA MD Ot Z11.2 ENCOUNTER FOR SCREENING FOR OTHER BACTER 01/27/2016 ANA LILIA ZARAGOZA MD Ot N20.1 CALCULUS OF URETER 01/27/2016 ANA LILIA ZARAGOZA MD Ot Z01.818 ENCOUNTER FOR OTHER PREPROCEDURAL EXAMIN 01/27/2016 ANA LILIA ZARAGOZA MD Ot Z11.2 ENCOUNTER FOR SCREENING FOR OTHER BACTER 01/31/2016 ANA LILIA ZARAGOZA MD Ot E11.9 TYPE 2 DIABETES MELLITUS WITHOUT COMPLIC 01/31/2016 ANA LILIA ZARAGOZA MD Ot N20.1 CALCULUS OF URETER 2016 ANA LILIA ZARAGOZA MD Ot E11.9 TYPE 2 DIABETES MELLITUS WITHOUT COMPLIC 2016 ANA LILIA ZARAGOZA MD Ot N20.1 CALCULUS OF URETER 2016 ANA LILIA ZARAGOZA MD Ot E11.9 TYPE 2 DIABETES MELLITUS WITHOUT COMPLIC 2016 MILA MICHELEL, ANA LILIA Meade Ot N20.1 CALCULUS OF URETER 02/15/2016 MILA MICHELLE, ANA LILIA Meade Ot N20.0 CALCULUS OF KIDNEY 02/24/2016 ANA LILIA ZARAGOZA MD Ot N20.0 CALCULUS OF KIDNEY 03/24/2016 DORA NASH MD Ot E11.65 TYPE 2 DIABETES MELLITUS WITH HYPERGLYCE 03/24/2016 DORA NSAH MD Ot I10 ESSENTIAL (PRIMARY) HYPERTENSION 03/24/2016 DORA NASH MD Ot S09.90XA UNSPECIFIED INJURY OF HEAD, INITIAL ENCO 03/24/2016 DORA NASH MD Ot S19.9XXA UNSPECIFIED INJURY OF NECK, INITIAL ENCO 03/24/2016 DORA NASH MD Ot S39.92XA UNSPECIFIED INJURY OF LOWER BACK, INITIA 03/24/2016 DORA NASH MD Ot S89.92XA UNSPECIFIED INJURY OF LEFT LOWER LEG, IN 03/24/2016 DORA NASH MD Ot W10.9XXA FALL (ON) (FROM) UNSPECIFIED STAIRS AND 03/24/2016 DORA NASH MD Ot Y92.[address] OR NOT APPLICABLE 03/24/2016 DORA NASH MD, Ot Y93.9 ACTIVITY, UNSPECIFIED 03/24/2016 DORA NASH MD Ot Y99.8 OTHER EXTERNAL CAUSE STATUS 03/24/2016 DORA NASH MD Ot Z79.4 DETENTION (CURRENT) USE OF INSULIN 03/24/2016 DORA NASH MD Ot Z79.84 [employer] (CURRENT) USE OF ORAL HYPOGLYC 03/24/2016 DORA NASH MD, Ot Z79.899 OTHER DETENTION (CURRENT) DRUG THERAPY 03/24/2016 DORA NASH MD Ot Z96.652 PRESENCE OF LEFT ARTIFICIAL KNEE JOINT 03/24/2016 Ot 715.96 OSTEOARTHROS NOS-L/LEG 03/24/2016 Ot V57.1 PHYSICAL THERAPY NEC 03/24/2016 Ot V72.63 PRE-PROCEDURAL LABORATORY EXAMINATION 03/24/2016 Ot V72.81 RIVI-BQY-ZCKHHJHXM CARDIOVASCULAR 03/24/2016 Ot V72.83 EXAM PRE-OPERATIVE NEC 03/24/2016 Ot 727.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 CYST 03/24/2016 Ot 729.5 PAIN IN LIMB 03/24/2016 Ot 562.10 DIVERTICULOSIS COLON (W/O MENT OF HEMORR 03/24/2016 Ot 592.0 CALCULUS OF KIDNEY 03/24/2016 Ot 724.2 LUMBAGO 03/24/2016 Ot V45.79 ACQRD ABSENCE OF OTH ORGAN 03/24/2016 Ot 786.09 RESPIRATORY ABNORM NEC 03/24/2016 Ot 397.0 TRICUSPID VALVE DISEASE 03/24/2016 Ot 424.0 MITRAL VALVE DISORDER 03/24/2016 Ot 786.09 RESPIRATORY ABNORM NEC 03/24/2016 Ot V76.12 OTH SCREEN MAMMO-MALIGN NEOPLASM OF [place] 03/24/2016 Ot 789.04 ABDOMINAL PAIN, LEFT LOWER QUADRANT 03/24/2016 VALERIE MICHELLE, EDGARDO Kohli Ot 726.60 ENTHESOPATHY OF KNEE NOS 03/24/2016 VALERIE MICHELLE, EDGARDO Kohli Ot V72.81 LHGW-EWC-CGMPQBFPE CARDIOVASCULAR 03/24/2016 VALERIE MICHELLE, EDGARDO Kohli Ot V74.8 SCREEN-BACTERIAL DIS NEC 03/24/2016 YOSI MICHELLE, TANYA Paniagua Ot V16.3 FAMILY HX-BREAST MALIG 03/24/2016 YOSI MICHELLE, TANYA Paniagua Ot V76.11 SCRN MAMMO-HIGH RISK PT, MALIGNANT NEOPL 03/24/2016 AYLIN PURVIS Ot 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 03/24/2016 AYLIN PURVIS Ot 715.36 LOC OSTEOARTH NOS-L/LEG 03/24/2016 AYLIN PURVIS Ot 727.09 SYNOVITIS NEC 03/24/2016 AYLIN PURVIS Ot 727.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 CYST 03/24/2016 AYLIN PURVIS Ot 844.9 SPRAIN OF KNEE LEG NOS 03/24/2016 AYLIN PURVIS Ot E000.8 OTHER EXTERNAL CAUSE STATUS 03/24/2016 AYLIN PURVIS Ot E849.6 ACCIDENT IN PUBLIC BLDG 03/24/2016 AYLIN PURVIS LACE WINDER Ot E927.0 OVEREXERTION FROM SUDDEN STRENUOUS MOVEM 03/24/2016 VALERIE MICHELLE, EDGARDO Kohli Ot 717.3 DERANG MED MENISCUS NEC 03/24/2016 EDGARDO PADILLA MD Ot V72.83 EXAM PRE-OPERATIVE NEC 03/24/2016 EDGARDO PADILLA MD Ot V74.8 SCREEN-BACTERIAL DIS NEC 03/24/2016 OTHER, UNLISTED Ot V76.12 OTH SCREEN MAMMO-MALIGN NEOPLASM OF [place] 03/24/2016 AYLIN PURVIS HU Ot M54.12 RADICULOPATHY, CERVICAL REGION 03/24/2016 MILA MICHELLE, ANA LILIA Meade Ot N20.0 CALCULUS OF KIDNEY 03/26/2016 DORA NASH MD Ot E11.65 TYPE 2 DIABETES MELLITUS WITH HYPERGLYCE 03/26/2016 DORA NASH MD, Ot I10 ESSENTIAL (PRIMARY) HYPERTENSION 03/26/2016 DORA NASH MD Ot S09.90XA UNSPECIFIED INJURY OF HEAD, INITIAL ENCO 03/26/2016 DORA NASH MD, Ot S19.9XXA UNSPECIFIED INJURY OF NECK, INITIAL ENCO 03/26/2016 DORA NASH MD Ot S39.92XA UNSPECIFIED INJURY OF LOWER BACK, INITIA 03/26/2016 DORA NASH MD, Ot S89.92XA UNSPECIFIED INJURY OF LEFT LOWER LEG, IN 03/26/2016 DORA NASH MD Ot W10.9XXA FALL (ON) (FROM) UNSPECIFIED STAIRS AND 03/26/2016 DORA NASH MD, Ot Y92.[address] OR NOT APPLICABLE 03/26/2016 DORA NASH MD, Ot Y93.9 ACTIVITY, UNSPECIFIED 03/26/2016 DORA NASH MD, Ot Y99.8 OTHER EXTERNAL CAUSE STATUS 03/26/2016 DORA NASH MD, Ot Z79.4 [employer] (CURRENT) USE OF INSULIN 03/26/2016 DORA NASH MD, Ot Z79.84 DETENTION (CURRENT) USE OF ORAL HYPOGLYC 03/26/2016 CHARITY MICHELLE, DORA Paniagua Ot Z79.899 OTHER [employer] (CURRENT) DRUG THERAPY 03/26/2016 CHARITY MICHELLE, DORA Paniagua Ot Z96.652 PRESENCE OF LEFT ARTIFICIAL KNEE JOINT 04/02/2016 Ot 715.96 OSTEOARTHROS NOS-L/LEG 04/02/2016 Ot V57.1 PHYSICAL THERAPY NEC 04/02/2016 Ot V72.63 PRE-PROCEDURAL LABORATORY EXAMINATION 04/02/2016 Ot V72.81 VRZL-HHR-WSCUJHWSY CARDIOVASCULAR 04/02/2016 Ot V72.83 EXAM PRE-OPERATIVE NEC 04/02/2016 Ot 727.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 CYST 04/02/2016 Ot 729.5 PAIN IN LIMB 04/02/2016 Ot 562.10 DIVERTICULOSIS COLON (W/O MENT OF HEMORR 04/02/2016 Ot 592.0 CALCULUS OF KIDNEY 04/02/2016 Ot 724.2 LUMBAGO 04/02/2016 Ot V45.79 ACQRD ABSENCE OF OTH ORGAN 04/02/2016 Ot 786.09 RESPIRATORY ABNORM NEC 04/02/2016 Ot 397.0 TRICUSPID VALVE DISEASE 04/02/2016 Ot 424.0 MITRAL VALVE DISORDER 04/02/2016 Ot 786.09 RESPIRATORY ABNORM NEC 04/02/2016 Ot V76.12 OTH SCREEN MAMMO-MALIGN NEOPLASM OF [place] 04/02/2016 Ot 789.04 ABDOMINAL PAIN, LEFT LOWER QUADRANT 04/02/2016 VALERIE MICHELLE, EDGARDO Kohli Ot 726.60 ENTHESOPATHY OF KNEE NOS 04/02/2016 VALERIE MICHELLE, EDGARDO Kohli Ot V72.81 XSDV-STN-TZXMJFEZT CARDIOVASCULAR 04/02/2016 VALERIE MICHELLE, EDGARDO Kohli Ot V74.8 SCREEN-BACTERIAL DIS NEC 04/02/2016 YOSI MICHELLE, TANYA Paniagua Ot V16.3 FAMILY HX-BREAST MALIG 04/02/2016 YOSI MICHELLE, TANYA Paniagua Ot V76.11 SCRN MAMMO-HIGH RISK PT, MALIGNANT NEOPL 04/02/2016 AYLIN PURVIS Ot 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 04/02/2016 AYLIN PURVIS Ot 715.36 LOC OSTEOARTH NOS-L/LEG 04/02/2016 AYLIN PURVIS Ot 727.09 SYNOVITIS NEC 04/02/2016 AYLIN PURVIS Ot 727.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 CYST 04/02/2016 AYLIN PURVIS LACE WINDER Ot 844.9 SPRAIN OF KNEE LEG NOS 04/02/2016 AYLIN PURVIS LACE WINDER Ot E000.8 OTHER EXTERNAL CAUSE STATUS 04/02/2016 AYLIN PURVISP Ot E849.6 ACCIDENT IN PUBLIC BLDG 04/02/2016 AYLIN PURVISP Ot E927.0 OVEREXERTION FROM SUDDEN STRENUOUS MOVEM 04/02/2016 EDGARDO PADILLA MD Ot 717.3 DERANG MED MENISCUS NEC 04/02/2016 EDGARDO PADILLA MD Ot V72.83 EXAM PRE-OPERATIVE NEC 04/02/2016 EDGARDO PADILLA MD Ot V74.8 SCREEN-BACTERIAL DIS NEC 04/02/2016 OTHER, UNLISTED Ot V76.12 OTH SCREEN MAMMO-MALIGN NEOPLASM OF [place]ANC[place] 04/02/2016 AYLIN PURVIS LACE WINDER Ot M54.12 RADICULOPATHY, CERVICAL REGION 04/02/2016 MILA MICHELLE, ANA LILIA Meade Ot N20.0 CALCULUS OF KIDNEY 04/06/2016 DORA NASH MD Ot E11.65 TYPE 2 DIABETES MELLITUS WITH HYPERGLYCE 04/06/2016 DORA NASH MD Ot I10 ESSENTIAL (PRIMARY) HYPERTENSION 04/06/2016 DORA NASH MD Ot S09.90XA UNSPECIFIED INJURY OF HEAD, INITIAL ENCO 04/06/2016 DORA NASH MD Ot S19.9XXA UNSPECIFIED INJURY OF NECK, INITIAL ENCO 04/06/2016 DORA NASH MD Ot S39.92XA UNSPECIFIED INJURY OF LOWER BACK, INITIA 04/06/2016 DORA NASH MD Ot S89.92XA UNSPECIFIED INJURY OF LEFT LOWER LEG, IN 04/06/2016 DORA NASH MD Ot W10.9XXA FALL (ON) (FROM) UNSPECIFIED STAIRS AND 04/06/2016 DORA NASH MD Ot Y92.[address] OR NOT APPLICABLE 04/06/2016 DORA NASH MD Ot Y93.9 ACTIVITY, UNSPECIFIED 04/06/2016 DORA NASH MD Ot Y99.8 OTHER EXTERNAL CAUSE STATUS 04/06/2016 DORA NASH MD Ot Z79.4 DETENTION (CURRENT) USE OF INSULIN 04/06/2016 DORA NASH MD Ot Z79.84 [employer] (CURRENT) USE OF ORAL HYPOGLYC 04/06/2016 DORA NASH MD Ot Z79.899 OTHER DETENTION (CURRENT) DRUG THERAPY 04/06/2016 DORA NASH MD Ot Z96.652 PRESENCE OF LEFT ARTIFICIAL KNEE JOINT 04/16/2016 AYLIN PURVIS Ot G47.33 OBSTRUCTIVE SLEEP APNEA (ADULT) ( PEDIATR 04/17/2016 AYLIN PURVIS Ot G47.33 OBSTRUCTIVE SLEEP APNEA (ADULT) ( PEDIATR 04/18/2016 AYLIN PURVIS Ot G47.33 OBSTRUCTIVE SLEEP APNEA (ADULT) ( PEDIATR 04/18/2016 AYLIN PURVIS Ot G47.33 OBSTRUCTIVE SLEEP APNEA (ADULT) ( PEDIATR 07/06/2016 Ot 715.96 OSTEOARTHROS NOS-L/LEG 07/06/2016 Ot V57.1 PHYSICAL THERAPY NEC 07/06/2016 Ot V72.63 PRE-PROCEDURAL LABORATORY EXAMINATION 07/06/2016 Ot V72.81 KKEJ-MVL-SHXENTTTE CARDIOVASCULAR 07/06/2016 Ot V72.83 EXAM PRE-OPERATIVE NEC 07/06/2016 Ot 727.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 CYST 07/06/2016 Ot 729.5 PAIN IN LIMB 07/06/2016 Ot 562.10 DIVERTICULOSIS COLON (W/O MENT OF HEMORR 07/06/2016 Ot 592.0 CALCULUS OF KIDNEY 07/06/2016 Ot 724.2 LUMBAGO 07/06/2016 Ot V45.79 ACQRD ABSENCE OF OTH ORGAN 07/06/2016 Ot 786.09 RESPIRATORY ABNORM NEC 07/06/2016 Ot 397.0 TRICUSPID VALVE DISEASE 07/06/2016 Ot 424.0 MITRAL VALVE DISORDER 07/06/2016 Ot 786.09 RESPIRATORY ABNORM NEC 07/06/2016 Ot V76.12 OTH SCREEN MAMMO-MALIGN NEOPLASM OF FRANCESCA 07/06/2016 Ot 789.04 ABDOMINAL PAIN, LEFT LOWER QUADRANT 07/06/2016 VALERIE MICHELLE, EDGARDO Kohli Ot 726.60 ENTHESOPATHY OF KNEE NOS 07/06/2016 EDGARDO PADILLA MD Ot V72.81 [id number] CARDIOVASCULAR 07/06/2016 EDGARDO PADILLA MD Ot V74.8 SCREEN-BACTERIAL DIS NEC 07/06/2016 YOSI MICHELLE, TANYA Paniagua Ot V16.3 FAMILY HX-BREAST MALIG 07/06/2016 YOSI MICHELLE, TANYA Paniagua Ot V76.11 SCRN MAMMO-HIGH RISK PT, MALIGNANT NEOPL 07/06/2016 AYLIN PURVIS LACE WINDER Ot 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 07/06/2016 AYLIN PURVIS LACE WINDER Ot 715.36 LOC OSTEOARTH NOS-L/LEG 07/06/2016 AYLIN PURVIS LACE WINDER Ot 727.09 SYNOVITIS NEC 07/06/2016 AYLIN PURVIS LACE WINDER Ot 727.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 CYST 07/06/2016 AYLIN PURVIS LACE WINDER Ot 844.9 SPRAIN OF KNEE LEG NOS 07/06/2016 AYLIN PURVISP Ot E000.8 OTHER EXTERNAL CAUSE STATUS 07/06/2016 AYLIN PURVISP Ot E849.6 ACCIDENT IN PUBLIC BLDG 07/06/2016 AYLIN PURVISP Ot E927.0 OVEREXERTION FROM SUDDEN STRENUOUS MOVEM 07/06/2016 EDGARDO PADILLA MD Ot 717.3 DERANG MED MENISCUS NEC 07/06/2016 EDGARDO PADILLA MD Ot V72.83 EXAM PRE-OPERATIVE NEC 07/06/2016 EDGARDO PADILLA MD Ot V74.8 SCREEN-BACTERIAL DIS NEC 07/06/2016 OTHER, UNLISTED Ot V76.12 OT SCREEN MAMMO-MALIGN NEOPLASM OF FRANCESCA 07/06/2016 AYLIN PURVISP Ot M54.12 RADICULOPATHY, CERVICAL REGION 07/06/2016 MILA MICHELLE, ANA LILIA Meade Ot N20.0 CALCULUS OF KIDNEY 07/09/2016 EDGARDO PADILLA MD Ot S46.011A STRAIN OF MUSC/TEND THE ROTATOR CUFF OF 07/09/2016 EDGARDO PADILLA MD Ot X58.XXXA EXPOSURE TO OTHER SPECIFIED FACTORS, INI 07/09/2016 EDGARDO PADILLA MD Ot Y99.8 OTHER EXTERNAL CAUSE STATUS 07/09/2016 EDGARDO PADILLA MD Ot S46.011A STRAIN OF MUSC/TEND THE ROTATOR CUFF OF 07/09/2016 EDGARDO PADILLA MD, Ot X58.XXXA EXPOSURE TO OTHER SPECIFIED FACTORS, INI 07/09/2016 EDGARDO PADILLA MD Ot Y99.8 OTHER EXTERNAL CAUSE STATUS 07/09/2016 EDGARDO PADILLA MD, Ot S46.011A STRAIN OF MUSC/TEND THE ROTATOR CUFF OF 07/09/2016 EDGARDO PADILLA MD, Ot X58.XXXA EXPOSURE TO OTHER SPECIFIED FACTORS, INI 07/09/2016 EDGARDO PADILLA MD, Ot Y99.8 OTHER EXTERNAL CAUSE STATUS 07/19/2016 EDGARDO PADILLA MD, Ot S43.421A SPRAIN OF RIGHT ROTATOR CUFF CAPSULE, IN 07/19/2016 EDGARDO PADILLA MD, Ot S43.431A SUPERIOR GLENOID LABRUM LESION OF RIGHT 07/19/2016 EDGARDO PADILLA MD, Ot W19.XXXA UNSPECIFIED FALL, INITIAL ENCOUNTER 07/19/2016 EDGARDO PADILLA MD, Ot Y92.[address] IN SINGLE-FAMILY (PRIVATE) 07/19/2016 EDGARDO PADILLA MD, Ot Y99.8 OTHER EXTERNAL CAUSE STATUS 07/19/2016 EDGARDO PADILLA MD, Ot Z01.818 ENCOUNTER FOR OTHER PREPROCEDURAL EXAMIN 07/19/2016 EDGARDO PADILLA MD, Ot Z11.2 ENCOUNTER FOR SCREENING FOR OTHER BACTER Procedures Code Description Performed By Performed On 81.54 TOTAL KNEE REPLACEMENT 05/16/2011 17857 A1C (IN-HOUSE) 70910 UA W/ CULTURE IF INDICATED 05/21/2012 99804 ECHO EXAMINATION PROCEDURE 07/02/2012 80222 EXERCISE STRESS TEST 07/02/2012 35146 MICRO ALBUMIN-IN HOUSE 08/05/2012 97677 A1C (IN-HOUSE) 62118 ROUTINE VENIPUNCTURE 08/27/[address] ABDOMEN & PELVIS W/O CONTRAST 08/27/2012 45577 UA LONG DIP 08/27 52352 CBC 08/27/2012 43549 CMP 08/27/2012 [id number] GFR CALC (RESULT ONLY) 08/27/2012 Cardiolog Marciano Zurita 01/08/2013 89330 UA W/ CULTURE IF INDICATED 01/08/2013 G0008 FLU ADMINISTRATION (MEDICARE ONLY) 01/28/2013 30541 ROUTINE VENIPUNCTURE 02/04/2013 55934 CMP 02/04/2013 93844 LIPID PANEL 02/04 [id number] GFR CALC (RESULT ONLY) 02/04/2013 13390 UA LONG DIP 02/24 52352 A1C (IN-HOUSE) 98681 OXIMETRY 2013 67902 MAMMOGRAM, SCREENING 07/20/2013 42651 MICRO ALBUMIN-IN HOUSE 09/11/2013 52989 A1C (IN-HOUSE) 97412 SLEEP STUDY ([facility] SLEEP STUDY) 10/12/2013 83279 XRAY KNEE RIGHT 1 OR 2 VIEWS 01/08/2014 25013 MRI EXTREMITY, LOWER RIGHT, W/O CONTRAST 01/11/2014 40879 MRI EXTREMITY JOINT, LOWER RIGHT, W/O CONTRAST 01/11/2014 ORTHOPLINSEY WHITAKER 02/03/2014 29603 A1C (IN-HOUSE) 77336 ROUTINE VENIPUNCTURE 02/04/2014 06849 CBC 02/04/2014 07600 CMP 02/04/2014 80666 LIPID PANEL 02/04 [id number] GFR CALC (RESULT ONLY) 02/04/2014 OrthopEdgardo Lott 02/26/2014 2000F BLOOD PRESSURE CHECK 03/23/2014 87504 INFLUENZA A & B (IN-HOUSE) 05/11/2014 J1030 DEPO MEDROL 40 MG INJ 06/15/2014 J3301 KENALOG INJ, PER 10 MG 06/15/2014 98542 THERAPUTIC INJ SQ/IM 06/15/2014 53527 A1C (IN-HOUSE) 66997 MICRO ALBUMIN-IN HOUSE 08/06/2014 Results Test Result Range Complete urinalysis with reflex to culture - 01/17/16 09:15 Urine color determination YELLOW NRG Urine clarity determination SLIGHTLY CLOUDY NRG Urine pH measurement by test strip 6 5- 9 Specific gravity of urine by test strip 1.015 1.016-1.022 Urine protein assay by test strip, semi-quantitative NEGATIVE NEGATIVE Urine glucose detection by automated test strip 4+ NEGATIVE Erythrocytes detection in urine sediment by light microscopy 5+ NEGATIVE Urine ketones detection by automated test strip NEGATIVE NEGATIVE Urine nitrite detection by test strip NEGATIVE NEGATIVE Urine total bilirubin detection by test strip NEGATIVE NEGATIVE Urine urobilinogen measurement by automated test strip (mass/volume) NORMAL NORMAL Urine leukocyte esterase detection by dipstick NEGATIVE NEGATIVE Automated urine sediment erythrocyte count by microscopy (number/high power field) TNTC NRG Automated urine sediment leukocyte count by microscopy (number/high power field ) RARE NRG Bacteria detection in urine sediment by light microscopy NEGATIVE NRG Squamous epithelial cells detection in urine sediment by light microscopy 2-5 NRG Crystals detection in urine sediment by light microscopy NONE NRG Casts detection in urine sediment by light microscopy NONE NRG Mucus detection in urine sediment by light microscopy NEGATIVE NRG Complete urinalysis with reflex to culture NO NRG Complete blood count (CBC) with automated white blood cell (WBC) differential - 01/17/16 10:15 Blood leukocytes automated count (number/volume) 7.2 10*3/ uL 4.3-11.0 Blood erythrocytes automated count (number/volume) 4.94 10*6 /uL 4.35-5.85 Venous blood hemoglobin measurement (mass/volume) 12.9 g/dL 11.5-16.0 Blood hematocrit (volume fraction) 40 % 35-52 Automated erythrocyte mean corpuscular volume 80 [foz_us] 80-99 Automated erythrocyte mean corpuscular hemoglobin (mass per erythrocyte) 26 pg 25-34 Automated erythrocyte mean corpuscular hemoglobin concentration measurement ( mass/volume) 33 g/dL 32-36 Automated erythrocyte distribution width ratio 13.7 % 10.0-14.5 Automated blood platelet count (count/volume) 247 10*3/uL 130-400 Automated blood platelet mean volume measurement 10.4 [foz_ us] 7.4-10.4 Automated blood neutrophils/100 leukocytes 72 % 42-75 Automated blood lymphocytes/100 leukocytes 18 % 12-44 Blood monocytes/100 leukocytes 8 % 0-12 Automated blood eosinophils/100 leukocytes 2 % 0-10 Automated blood basophils/100 leukocytes 0 % 0-10 Blood neutrophils automated count (number/volume) 5.2 10*3 1.8-7.8 Blood lymphocytes automated count (number/volume) 1.3 10*3 1.0-4.0 Blood monocytes automated count (number/volume) 0.5 10*3 0.0-1.0 Automated eosinophil count 0.1 10*3/uL 0.0-0.3 Automated blood basophil count (count/volume) 0.0 10*3/uL 0.0-0.1 Comprehensive metabolic panel - 01/17/16 10:15 Serum or plasma sodium measurement (moles/volume) 137 mmol/ L 135-145 Serum or plasma potassium measurement (moles/volume) 4.6 mmol/L 3.6-5.0 Serum or plasma chloride measurement (moles/volume) 103 mmol /L 98-107 Carbon dioxide 26 mmol/L 21-32 Serum or plasma anion gap determination (moles/volume) 8 mmol/L 5-14 Serum or plasma urea nitrogen measurement (mass/volume) 13 mg/dL 7-18 Serum or plasma creatinine measurement (mass/volume) 0.84 mg /dL 0.60-1.30 Serum or plasma urea nitrogen/creatinine mass ratio 15 NRG Serum or plasma creatinine measurement with calculation of estimated glomerular filtration rate > NRG Serum or plasma glucose measurement (mass/volume) 382 mg/dL 70-105 Serum or plasma calcium measurement (mass/volume) 9.5 mg/dL 8.5-10.1 Serum or plasma total bilirubin measurement (mass/volume) 0.5 mg/dL 0.1-1.0 Serum or plasma alkaline phosphatase measurement (enzymatic activity/volume) 76 U/L 40-136 Serum or plasma aspartate aminotransferase measurement (enzymatic activity/ volume) 27 U/L 5-34 Serum or plasma alanine aminotransferase measurement (enzymatic activity/volume ) 28 U/L 0-55 Serum or plasma protein measurement (mass/volume) 6.5 g/dL 6.4-8.2 Serum or plasma albumin measurement (mass/volume) 4.2 g/dL 3.2-4.5 Methicillin resistant Staphylococcus aureus (MRSA) screening culture - 12:05 Methicillin resistant Staphylococcus aureus (MRSA) screening culture NEG NRG Capillary blood glucose measurement by glucometer (mass/volume) - 01/31/16 07: 24 Capillary blood glucose measurement by glucometer (mass/volume) 239 mg/dL 70-110 Capillary blood glucose measurement by glucometer (mass/volume) - 01/31/16 09: 32 Capillary blood glucose measurement by glucometer (mass/volume) 236 mg/dL 70-110 Automated blood complete blood count (hemogram) panel - 03/24/16 11:33 Blood leukocytes automated count (number/volume) 4.9 10*3/ uL 4.3-11.0 Blood erythrocytes automated count (number/volume) 4.81 10*6 /uL 4.35-5.85 Venous blood hemoglobin measurement (mass/volume) 12.5 g/dL 11.5-16.0 Blood hematocrit (volume fraction) 39 % 35-52 Automated erythrocyte mean corpuscular volume 81 [foz_us] 80-99 Automated erythrocyte mean corpuscular hemoglobin (mass per erythrocyte) 26 pg 25-34 Automated erythrocyte mean corpuscular hemoglobin concentration measurement ( mass/volume) 32 g/dL 32-36 Automated erythrocyte distribution width ratio 14.0 % 10.0-14.5 Automated blood platelet count (count/volume) 236 10*3/uL 130-400 Automated blood platelet mean volume measurement 10.5 [foz_ us] 7.4-10.4 Liver function panel (serum or plasma alk phos, alb, total and direct bili, total protein, ALT, AST) - 03/24/16 11:33 Serum or plasma total bilirubin measurement (mass/volume) 0.6 mg/dL 0.1-1.0 Serum or plasma alkaline phosphatase measurement (enzymatic activity/volume) 73 U/L 40-136 Serum or plasma aspartate aminotransferase measurement (enzymatic activity/ volume) 36 U/L 5-34 Serum or plasma alanine aminotransferase measurement (enzymatic activity/volume ) 30 U/L 0-55 Serum or plasma protein measurement (mass/volume) 6.3 g/dL 6.4-8.2 Serum or plasma albumin measurement (mass/volume) 4.0 g/dL 3.2-4.5 Bilirubin direct 0.2 mg/dL 0.0-0.3 Serum or plasma indirect bilirubin measurement (mass/volume) 0.4 mg/dL NRG Whole blood basic metabolic panel - 03/24/16 11:33 Serum or plasma sodium measurement (moles/volume) 136 mmol/ L 135-145 Serum or plasma potassium measurement (moles/volume) 4.2 mmol/L 3.6-5.0 Serum or plasma chloride measurement (moles/volume) 104 mmol /L 98-107 Carbon dioxide 23 mmol/L 21-32 Serum or plasma anion gap determination (moles/volume) 9 mmol/L 5-14 Serum or plasma urea nitrogen measurement (mass/volume) 7 mg /dL 7-18 Serum or plasma creatinine measurement (mass/volume) 0.77 mg /dL 0.60-1.30 Serum or plasma urea nitrogen/creatinine mass ratio 9 NRG Serum or plasma creatinine measurement with calculation of estimated glomerular filtration rate > NRG Serum or plasma glucose measurement (mass/volume) 437 mg/dL 70-105 Serum or plasma calcium measurement (mass/volume) 8.9 mg/dL 8.5-10.1 Serum or plasma ethanol measurement (mass/volume) - 03/24/16 11:33 Serum or plasma ethanol measurement (mass/volume) < mg/dL <10 Complete urinalysis with reflex to culture - 03/24/16 12:48 Urine color determination YELLOW NRG Urine clarity determination SLIGHTLY CLOUDY NRG Urine pH measurement by test strip 7 5- 9 Specific gravity of urine by test strip 1.010 1.016-1.022 Urine protein assay by test strip, semi-quantitative NEGATIVE NEGATIVE Urine glucose detection by automated test strip 4+ NEGATIVE Erythrocytes detection in urine sediment by light microscopy NEGATIVE NEGATIVE Urine ketones detection by automated test strip NEGATIVE NEGATIVE Urine nitrite detection by test strip NEGATIVE NEGATIVE Urine total bilirubin detection by test strip NEGATIVE NEGATIVE Urine urobilinogen measurement by automated test strip (mass/volume) NORMAL NORMAL Urine leukocyte esterase detection by dipstick NEGATIVE NEGATIVE Automated urine sediment erythrocyte count by microscopy (number/high power field) NONE NRG Automated urine sediment leukocyte count by microscopy (number/high power field ) NONE NRG Bacteria detection in urine sediment by light microscopy NEGATIVE NRG Squamous epithelial cells detection in urine sediment by light microscopy 0-2 NRG Crystals detection in urine sediment by light microscopy NONE NRG Casts detection in urine sediment by light microscopy NONE NRG Mucus detection in urine sediment by light microscopy NEGATIVE NRG Complete urinalysis with reflex to culture NO NRG Methicillin resistant Staphylococcus aureus (MRSA) screening culture - 09:16 Methicillin resistant Staphylococcus aureus (MRSA) screening culture NEG NRG Capillary blood glucose measurement by glucometer (mass/volume) - 07/25/16 07: 11 Capillary blood glucose measurement by glucometer (mass/volume) 186 mg/dL 70-110 Encounters ACCT No. Visit Date/Time Discharge Status Pt. Type Provider Facility Loc./Unit Complaint [id number] 08/26/2014 16:30:00 08/26/2014 23: 59:59 [facility] Outpatient DANIEL HOFFMAN APRN [id number] 08/06/2014 11:45:00 08/06/2014 23: 59:59 [facility] Outpatient AYLIN PURVIS APRN [id number] 07/29/2014 08:13:00 07/29/2014 23: 59:59 [facility] Outpatient AYAH REES APRNINA R [id number] 06/29/2014 15:36:00 06/29/2014 23: 59:59 C[facility] Outpatient DANIEL HOFFMAN APRN [id number] 06/15/2014 10:31:00 06/15/2014 23: 59:59 CLS Outpatient AYAH REES APRNINA R [id number] 06/04/2014 15:38:00 06/04/2014 23: 59:59 CLS Outpatient AYAH REES APRNINA R [id number] 05/05/2014 10:23:00 05/05/2014 23: 59:59 CLS Outpatient JESU BROWN MD [id number] 03/23/2014 18:39:00 03/23/2014 23: 59:59 CLS Outpatient AYLIN PURVIS APRN [id number] 02/25/2014 15:01:00 02/25/2014 23: 59:59 CLS Outpatient CARMEN ENRRIQUE LINSEY Douglass [id number] 02/04/2014 08:19:00 02/04/2014 23: 59:59 CLS Outpatient AYLIN PURVIS APRN [id number] 02/03/2014 11:13:00 02/03/2014 23: 59:59 CLS Outpatient AYLIN PURVIS APRN [id number] 02/03/2014 11:13:00 02/03/2014 23: 59:59 CLS Outpatient AYLIN PURVIS APRN [id number] 01/11/2014 09:26:00 01/11/2014 23: 59:59 CLS Outpatient AYLIN PURVIS APRN [id number] 01/08/2014 15:49:00 01/08/2014 23: 59:59 CLS Outpatient JOEY AN APRNWNYDeshaun [place] [id number] 01/08/2014 15:49:00 01/08/2014 23: 59:59 CLS Outpatient ZENAIDAL JOEY OSUNAMIRTA [place] [id number] 01/01/2014 11:26:00 01/01/2014 23: 59:59 CLS Outpatient AYLIN PURVIS APRN [place] [id number] 10/12/2013 12:06:00 10/12/2013 23: 59:59 CLS Outpatient AYLIN PURVIS APRN [place] [id number] 09/11/2013 16:36:00 09/11/2013 23: 59:59 CLS Outpatient AYLIN PURVIS APRN [id number] 09/11/2013 16:36:00 09/11/2013 23: 59:59 CLS Outpatient MALLORIE BHAGAT MD [id number] 07/08/2013 08:39:00 07/08/2013 23: 59:59 CLS Outpatient LUIS F KOEHLER BESSIE [place] [id number] 07/08/2013 08:39:00 07/08/2013 23: 59:59 CLS Outpatient LUIS F DO BESSIE [place] [id number] 05/11/2013 10:01:00 05/11/2013 23: 59:59 CLS Outpatient AYLIN PURVIS APRN [id number] 05/05/2013 13:01:00 05/05/2013 23: 59:59 CLS Outpatient LUIS F KEOHLER BESSIE [place] [id number] 02/24/2013 14:43:00 02/24/2013 23: 59:59 CLS Outpatient AYLIN PURVIS APRN [id number] 02/24/2013 14:43:00 02/24/2013 23: 59:59 CLS Outpatient AYLIN PURVIS APRN [id number] 02/04/2013 08:49:00 02/04/2013 23: 59:59 CLS Outpatient LUIS F DO BESSIE [place] [id number] 02/04/2013 08:49:00 02/04/2013 23: 59:59 CLS Outpatient LUIS F KOEHLER BESSIE White [id number] 01/28/2013 12:47:00 01/28/2013 23: 59:59 CLS Outpatient LUIS F DOBESSIE [id number] 01/08/2013 18:02:00 01/08/2013 23: 59:59 CLS Outpatient MAGGY POWELL APRNMOHINI [place] [id number] 08/05/2012 15:11:00 08/05/2012 23: 59:59 CLS Outpatient [id number] 07/30/2012 09:50:00 07/30/2012 23: 59:59 CLS Outpatient [id number] 07/02/2012 09:22:00 07/02/2012 23: 59:59 CLS Outpatient [id number] 05/21/2012 15:22:00 05/21/2012 23: 59:59 CLS Outpatient LUIS F DOBESSIE [id number] 05/21/2012 15:22:00 05/21/2012 23: 59:59 CLS Outpatient KERNS DOBESSIE [id number] 03/28/2012 10:09:00 03/28/2012 23: 59:59 CLS Outpatient AYLIN PURVIS APRN [id number] 02/27/2012 14:44:00 02/27/2012 23:59 :59 CLS Outpatient AYLIN PURVIS APRN [id number] 01/08/2013 18:02:00 Document Registration [id number] 12/22/2012 16:32:00 Document Registration [id number] 12/08/2012 11:35:00 Document Registration [id number] 12/08/2012 11:35:00 Document Registration [id number] 08/27/2012 09:50:00 Document Registration [id number] 08/27/2012 09:50:00 Document Registration
--- OUTSIDE RECORDS SUMMARY | 2016-07-29 04:36 | XMS REPORT ---
Author Author AYLIN PURVIS Organization e[employer] Address Unknown Phone Unavailable Care Team Providers Care Rib Bender Name Role Phone AYLIN PURVIS CP Unavailable Allergies No Known Allergies Problems Problem Type Condition ICD-9 Code Onset Dates Condition Status Problem Abdominal pain, unspecified site 789.00 Active Problem Other malaise and fatigue 780.79 Active Problem Scabies 133.0 Active Problem Urinary frequency 788.41 Active Problem Unspecified viral infection, in conditions classified elsewhere and of unspecified site 079.99 Active Problem Unspecified backache 724.5 Active Problem Acute upper respiratory infections of unspecified site 465.9 Active Problem Sprain and strain of unspecified site of knee and leg 844.9 Active Problem Postnasal drip 784.91 Active Problem Pain in joint, lower leg 719.46 Active Problem Intestinal infection due to other organism, NEC 008.8 Active Problem Obstructive sleep apnea (adult) (pediatric) 327.23 Active Problem Chronic airway obstruction, not elsewhere classified 496 Active Problem Cough 786.2 Active Problem Dermatitis due to other specified substances taken internally 693.8 Active Problem Abdominal pain, left lower quadrant 789.04 Active Problem Tear of medial cartilage or meniscus of knee, current 836.0 Active Problem Cellulitis and abscess of hand, except fingers and thumb 682.4 Active Problem Unspecified essential hypertension 401.9 Active Problem Acute bronchitis 466.0 Active Problem Symptomatic menopausal or female climacteric states 627.2 Active Medications No Known Medications Results No Known Results Summary Purpose eClinicalWorks Submission
--- OUTSIDE RECORDS SUMMARY | 2016-07-29 04:36 | XMS REPORT ---
Author AYLIN Goel [facility] [place] eClinical[employer] Address Unknown Phone Unavailable Care Team Providers Care Ladle Repairer Name Role Phone AYLIN PURVIS CP Unavailable Allergies, Adverse Reactions, Alerts Substance Reaction Event Type N.K.D.A. Info Not Available Non Drug Allergy Problems Problem Type Condition Code Onset Dates Condition Status Problem Diabetes type 2, controlled E11.9 Active Assessment Bronchitis J40 Active Problem Diabetes type 2, uncontrolled E11.65 Active Assessment Diabetes type 2, uncontrolled E11.65 Active Medications Medication Code System Code Instructions Start Date End Date Status Dosage Meclizine HCl [facility] [address]-19 25 MG Orally 3 times a day PRN July 28, 2015 1 tablet Famotidine [facility] [address]-07 20 MG before meals July 23, 2014 1 tablet by Oral route 2 times per day Simvastatin [facility] [address]-01 80 MG Orally Jun 05, 2014 1 tablet by Oral route 1 time per day Fenofibrate [facility] [address]-13 48 MG Orally Once a day 1 tablet Fish Oil [facility] [address]-91 1000 MG Orally Once a day 2 Zithromax Z-Fabián [facility] [address]-39 250 MG Orally Once a day September 05, 2015 September 10, 2015 2 tablets on the first day, then 1 tablet daily for 4 days Lisinopril [facility] [address]-81 10 mg Apr 30, 2014 1 tablet by Oral route 1 time per day Gabapentin [facility] [address]-77 600 MG Orally Three times a day Apr 08, 2015 1 capsule Meloxicam [facility] [address]-91 15 MG Orally Once a day 1 tablet Advair Diskus [facility] [address]-28 250-50 mcg/dose May 05, 2014 1 puffs by Inhalation route 2 times per day PredniSONE [facility] [address]-12 20 mg Orally Once a day September 05, 2015 September 10, 2015 2 tablets Methocarbamol [facility] [address]-88 500 MG Orally 2 times a day 2 Metformin HCl [facility] [address]-66 1000 MG Orally Twice a day 1 tablet with meals ProAir HFA [facility] [address]-75 90 mcg/actuation October 05, 2011 inhale 2 puffs by inhalation route every 6 hours as needed for 30 day(s) Zoloft [facility] [address]-38 50 MG Orally Once a day Apr 08, 2015 1 tablet Symbicort [facility] [address]-48 80-4.5 MCG/ACT Inhalation Twice a day 2 puffs Salmon [facility] [address]-82 5-325 MG Orally every 6 hrs August 05, 2015 1 tablet as needed Aspirin [facility] [address]-10 81 MG Orally Once a day 1 tablet GlipiZIDE [facility] [address]-51 10 MG before meal July 09, 2014 1 tablet by Oral route 2 times per day Flonase [facility] [address]-57 50 MCG/ACT Nasally Once a day Jan 17, 2015 1 spray in each nostril Procedures Procedure Coding System Code Date Office Visit, Est Pt., Level 3 CPT-4 64858 September 05, 2015 [facility] ESTABLISHED PATIENT CPT-4 G0467 September 05, 2015 Vital Signs Date/Time: September 05, 2015 Temperature 98.6 F Weight 220 lbs Height 64 in BMI 37.76 Index Blood Pressure Diastolic 78 mmHg Blood Pressure Systolic 134 mmHg Cardiac Monitoring Heart Rate 90 bpm Results No Known Results Summary Purpose eClinicalWorks Submission
--- OUTSIDE RECORDS SUMMARY | 2016-07-29 04:36 | XMS REPORT ---
Author AYLIN Goel [facility] eClinicalWorks Address Unknown Phone Unavailable Care Team Providers Care Cnc Machinist Name Role Phone AYLIN PURVIS CP Unavailable Allergies, Adverse Reactions, Alerts Substance Reaction Event Type N.K.D.A. Info Not Available Non Drug Allergy Problems Problem Type Condition Code Onset Dates Condition Status Problem Diabetes type 2, controlled E11.9 Active Assessment Anxiety F41.9 Active Problem Diabetes type 2, uncontrolled E11.65 Active Assessment Acute bilateral low back pain with right-sided sciatica M54.41 Active Medications Medication Code System Code Instructions Start Date End Date Status Dosage Zoloft [facility] [address]-51 50 MG Orally Once a day Apr 08, 2015 1 tablet Lisinopril [facility] [address]-63 10 mg Apr 30, 2014 1 tablet by Oral route 1 time per day ProAir HFA [facility] [address]-42 90 mcg/actuation October 05, 2011 inhale 2 puffs by inhalation route every 6 hours as needed for 30 day(s) Fenofibrate [facility] [address]-48 48 MG Orally Once a day 1 tablet Metformin HCl [facility] [address]-68 1000 MG Orally Twice a day 1 tablet with meals Famotidine [facility] [address]-83 20 MG before meals July 23, 2014 1 tablet by Oral route 2 times per day Levemir FlexTouch [facility] [address]-81 100 UNIT/ML Subcutaneous at bedtime 72 units Aspirin [facility] [address]-74 81 MG Orally Once a day 1 tablet Tramadol HCl [facility] [address]-22 50 MG Orally every 6 hrs 1 tablet as needed Xanax [facility] [address]-09 1 MG Orally Twice a day November 17, 2015 1 tablet Symbicort [facility] [address]-86 80-4.5 MCG/ACT Inhalation Twice a day 2 puffs Methocarbamol [facility] [address]-00 500 MG Orally 2 times a day 2 Simvastatin [facility] [address]-52 80 MG Orally Jun 05, 2014 1 tablet by Oral route 1 time per day GlipiZIDE [facility] [address]-86 10 MG before meal July 09, 2014 1 tablet by Oral route 2 times per day Advair Diskus [facility] [address]-21 250-50 mcg/dose May 05, 2014 1 puffs by Inhalation route 2 times per day [place] [facility] [address]-55 7.5-325 MG Orally every 6 hrs August 05, 2015 1 tablet as needed Fish Oil [facility] [address]-33 1000 MG Orally Once a day 2 Gabapentin [facility] [address]-04 600 MG Orally Three times a day Apr 08, 2015 1 capsule Meloxicam [facility] [address]-65 15 MG Orally Once a day 1 tablet Flonase [facility] [address]-86 50 MCG/ACT Nasally Once a day Jan 17, 2015 1 spray in each nostril Procedures Procedure Coding System Code Date Office Visit, Est Pt., Level 3 CPT-4 77762 November 17, 2015 [facility] ESTABLISHED PATIENT CPT-4 G0467 November 17, 2015 Vital Signs Date/Time: November 17, 2015 Cardiac Monitoring Heart Rate 76 bpm Weight 223.9 lbs Height 64 in Blood Pressure Diastolic 82 mmHg Blood Pressure Systolic 140 mmHg Results No Known Results Summary Purpose eClinicalWorks Submission
--- OUTSIDE RECORDS SUMMARY | 2016-07-29 04:36 | XMS REPORT ---
Author Author AYLIN PURVIS [facility] eClinicalWorks Address Unknown Phone Unavailable Care Team Providers Care Cotton Picker Name Role Phone AYLIN PURVIS CP Unavailable Allergies, Adverse Reactions, Alerts Substance Reaction Event Type N.K.D.A. Info Not Available Non Drug Allergy Problems Problem Type Condition Code Onset Dates Condition Status Problem Abdominal pain, unspecified site 789.00 Active Problem Other malaise and fatigue 780.79 Active Problem Scabies 133.0 Active Problem Urinary frequency 788.41 Active Problem Unspecified viral infection, in conditions classified elsewhere and of unspecified site 079.99 Active Problem Unspecified backache 724.5 Active Assessment Diabetes E11.9 Active Problem Acute upper respiratory infections of [...] or female climacteric states 627.2 Active Medications Medication Code System Code Instructions Start Date End Date Status Dosage ProAir HFA [facility] [address]-08 90 mcg/actuation October 05, 2011 inhale 2 puffs by inhalation route every 6 hours as needed for 30 day(s) Zofran ODT [facility] [address]-05 8 mg May 05, 2014 1 tablet by Oral route every 8 hours PRN nausea or vomiting Fenofibrate [facility] [address]-41 48 MG Orally Once a day 1 tablet Fish Oil [facility] [address]-83 1000 MG Orally Once a day 2 Prempro [facility] [address]-24 0.45-1.5 MG Orally Once a day 1 tablet Methocarbamol [facility] [address]-24 500 MG Orally 2 times a day 2 Symbicort [facility] [address]-33 80-4.5 MCG/ACT Inhalation Twice a day 2 puffs Aspirin [facility] [address]-94 81 MG Orally Once a day 1 tablet Meloxicam [facility] [address]-10 15 MG Orally Once a day 1 tablet Metformin HCl [facility] [address]-36 1000 MG Orally Twice a day 1 tablet with meals Lisinopril [facility] [address]-33 10 mg Apr 30, 2014 1 tablet by Oral route 1 time per day Simvastatin [facility] [address]-43 80 MG Orally Jun 05, 2014 1 tablet by Oral route 1 time per day Tramadol HCl [facility] [address]-97 50 MG Orally 3 times a day 2 Famotidine [facility] [address]-93 20 MG before meals July 23, 2014 1 tablet by Oral route 2 times per day GlipiZIDE [facility] [address]-69 10 MG before meal July 09, 2014 1 tablet by Oral route 2 times per day Gabapentin [facility] [address]-15 100 MG Orally not defined Procedures Procedure Coding System Code Date MICROALBUMIN, SEMIQUANT CPT-4 96965 Feb 21, 2015 [facility] ESTABLISHED PATIENT CPT-4 G0467 Feb 21, 2015 GLYCATED HEMOGLOBIN TEST CPT-4 14701 Feb 21, 2015 Office Visit, Est Pt., Level 3 CPT-4 29160 Feb 21, 2015 Vital Signs Date/Time: Feb 21, 2015 Temperature 98.8 F Weight 220.5 lbs Height 64 in BMI 37.84 Index Blood Pressure Diastolic 90 mmHg Blood Pressure Systolic 135 mmHg Cardiac Monitoring Heart Rate 92 bpm Results Name Result Date Reference Range Unit Abnormality Flag A1C (IN HOUSE) Summary Purpose eClinicalWorks Submission
--- OUTSIDE RECORDS SUMMARY | 2016-07-29 04:37 | XMS REPORT ---
Author AYLIN Goel [facility] eClinicalWorks Address Unknown Phone Unavailable Care Team Providers Care Apprentice Architect Name Role Phone AYLIN PURVIS CP Unavailable Allergies, Adverse Reactions, Alerts Substance Reaction Event Type N.K.D.A. Info Not Available Non Drug Allergy Problems Problem Type Condition Code Onset Dates Condition Status Assessment Diabetes type 2, controlled E11.9 Active Assessment Radiculopathy of cervical region M54.12 Active Problem Diabetes type 2, controlled E11.9 Active Medications Medication Code System Code Instructions Start Date End Date Status Dosage Famotidine [facility] [address]-21 20 MG before meals July 23, 2014 1 tablet by Oral route 2 times per day Fish Oil [facility] [address]-22 1000 MG Orally Once a day 2 Prempro [facility] [address]-24 0.45-1.5 MG Orally Once a day 1 tablet Zoloft [facility] [address]-19 50 MG Orally Once a day Apr 08, 2015 1 tablet ProAir HFA [facility] [address]-24 90 mcg/actuation October 05, 2011 inhale 2 puffs by inhalation route every 6 hours as needed for 30 day(s) Methocarbamol [facility] [address]-91 500 MG Orally 2 times a day 2 Fenofibrate [facility] [address]-92 48 MG Orally Once a day 1 tablet Symbicort [facility] [address]-56 80-4.5 MCG/ACT Inhalation Twice a day 2 puffs Advair Diskus [facility] [address]-79 250-50 mcg/dose May 05, 2014 1 puffs by Inhalation route 2 times per day Tramadol HCl [facility] [address]-08 50 MG Orally 3 times a day 2 Metformin HCl [facility] [address]-23 1000 MG Orally Twice a day 1 tablet with meals Lisinopril [facility] [address]-96 10 mg Apr 30, 2014 1 tablet by Oral route 1 time per day Simvastatin [facility] [address]-19 80 MG Orally Jun 05, 2014 1 tablet by Oral route 1 time per day Gabapentin [facility] [address]-35 600 MG Orally Three times a day Apr 08, 2015 1 capsule Flonase [facility] [address]-48 50 MCG/ACT Nasally Once a day Jan 17, 2015 1 spray in each nostril GlipiZIDE [facility] [address]-44 10 MG before meal July 09, 2014 1 tablet by Oral route 2 times per day Aspirin [facility] [address]-78 81 MG Orally Once a day 1 tablet Meloxicam [facility] [address]-78 15 MG Orally Once a day 1 tablet Procedures Procedure Coding System Code Date Office Visit, Est Pt., Level 3 CPT-4 74686 May 11, 2015 [facility] VISIT ESTABLISHED PATIENT CPT-4 G0467 May 11, 2015 Vital Signs Date/Time: May 11, 2015 Temperature 97.0 F Weight 215.7 lbs Height 64 in BMI 37.02 Index Blood Pressure Diastolic 86 mmHg Blood Pressure Systolic 134 mmHg Cardiac Monitoring Heart Rate 80 bpm Results No Known Results Summary Purpose eClinicalWorks Submission
--- OUTSIDE RECORDS SUMMARY | 2016-07-29 04:37 | XMS REPORT ---
Author AYLIN Goel [facility] eClinicalWorks Address Unknown Phone Unavailable Care Team Providers Care Pitching Coach Name Role Phone AYLIN PURVIS CP Unavailable Allergies, Adverse Reactions, Alerts Substance Reaction Event Type N.K.D.A. Info Not Available Non Drug Allergy Problems Problem Type Condition Code Onset Dates Condition Status Assessment Diabetes type 2, controlled E11.9 Active Problem Diabetes type 2, controlled E11.9 Active Medications Medication Code System Code Instructions Start Date End Date Status Dosage Lisinopril [facility] [address]-09 10 mg Apr 30, 2014 1 tablet by Oral route 1 time per day Simvastatin [facility] [address]-02 80 MG Orally Jun 05, 2014 1 tablet by Oral route 1 time per day Prempro [facility] [address]-86 0.45-1.5 MG Orally Once a day 1 tablet Fenofibrate [facility] [address]-86 48 MG Orally Once a day 1 tablet ProAir HFA [facility] [address]-98 90 mcg/actuation October 05, 2011 inhale 2 puffs by inhalation route every 6 hours as needed for 30 day(s) Methocarbamol [facility] [address]-53 500 MG Orally 2 times a day 2 Famotidine [facility] [address]-49 20 MG before meals July 23, 2014 1 tablet by Oral route 2 times per day Flonase [facility] [address]-92 50 MCG/ACT Nasally Once a day Jan 17, 2015 1 spray in each nostril Symbicort [facility] [address]-54 80-4.5 MCG/ACT Inhalation Twice a day 2 puffs Fish Oil [facility] [address]-48 1000 MG Orally Once a day 2 Meloxicam [facility] [address]-23 15 MG Orally Once a day 1 tablet Gabapentin [facility] [address]-81 600 MG Orally Three times a day Apr 08, 2015 1 capsule Zoloft [facility] [address]-01 50 MG Orally Once a day Apr 08, 2015 1 tablet Metformin HCl [facility] [address]-25 1000 MG Orally Twice a day 1 tablet with meals Advair Diskus [facility] [address]-67 250-50 mcg/dose May 05, 2014 1 puffs by Inhalation route 2 times per day GlipiZIDE [facility] [address]-45 10 MG before meal July 09, 2014 1 tablet by Oral route 2 times per day Aspirin [facility] [address]-07 81 MG Orally Once a day 1 tablet Tramadol HCl [facility] [address]-63 50 MG Orally 3 times a day 2 Procedures Procedure Coding System Code Date [facility] VISIT ESTABLISHED PATIENT CPT-4 G0467 Jun 10, 2015 Office Visit, Est Pt., Level 3 CPT-4 31095 Jun 10, 2015 GLYCATED HEMOGLOBIN TEST CPT-4 84824 Jun 10, 2015 Vital Signs Date/Time: Jun 10, 2015 Temperature 97.3 F Weight 219.1 lbs Height 64 in BMI 37.60 Index Blood Pressure Diastolic 74 mmHg Blood Pressure Systolic 136 mmHg Cardiac Monitoring Heart Rate 76 bpm Results Name Result Date Reference Range Unit Abnormality Flag A1C (IN HOUSE) ----A1C IN HOUSE 8.6 [id number] 4.3 - 5.6 % ----Previous A1c 8.7 [id number] ----Lot [id number] ----Exp date [id number] Summary Purpose eClinicalWorks Submission
--- OUTSIDE RECORDS SUMMARY | 2016-07-29 04:37 | XMS REPORT ---
Author Author VEENA PUENTES eClinicalWorks Address Unknown Phone Unavailable Care Team Providers Care Kiln Drawer Name Role Phone VEENA PUENTES CP Unavailable Allergies No Known Allergies Problems Problem Type Condition Code Onset Dates Condition Status Problem Type 2 diabetes mellitus without complications E11.9 Active Problem Diabetes type 2, uncontrolled E11.65 Active Problem Adjustment disorder with mixed anxiety and depressed mood F43.23 Active Problem Diabetes type 2, controlled E11.9 Active Assessment Adjustment disorder with mixed anxiety and depressed mood F43.23 Active Medications No Known Medications Procedures Procedure Coding System Code Date Psychotherapy, patient &/family, 45 minutes, established patient CPT-4 42122 Dec 19, 2015 [facility] VISIT MENTAL HEALTH ESTAB PT CPT-4 G0470 Dec 19, 2015 Results No Known Results Summary Purpose eClinicalWorks Submission
--- OUTSIDE RECORDS SUMMARY | 2016-07-29 04:37 | XMS REPORT ---
Author Author AYLIN PURVIS [facility] eClinicalWorks Address Unknown Phone Unavailable Care Team Providers Care Call Center Team Leader Name Role Phone AYLIN PURVIS CP Unavailable Allergies, Adverse Reactions, Alerts Substance Reaction Event Type N.K.D.A. Info Not Available Non Drug Allergy Problems Problem Type Condition Code Onset Dates Condition Status Assessment Acute pain of left hip M25.552 Active Problem Diabetes type 2, controlled E11.9 Active Assessment Acute pain of right shoulder M25.511 Active Assessment Acute pain of left knee M25.562 Active Problem assisted current use of insulin Z79.4 Active Problem Obstructive sleep apnea syndrome G47.33 Active Problem Type 2 diabetes mellitus with hyperglycemia E11.65 Active Problem Type 2 diabetes mellitus without complications E11.9 Active Problem Diabetes type 2, uncontrolled E11.65 Active Problem Chronic fatigue R53.82 Active Problem Adjustment disorder with mixed anxiety and depressed mood F43.23 Active Medications Medication Code System Code Instructions Start Date End Date Status Dosage Simvastatin [facility] [address]-60 80 MG Orally Jun 05, 2014 1 tablet by Oral route 1 time per day Famotidine [facility] [address]-44 20 MG before meals July 23, 2014 1 tablet by Oral route 2 times per day Methuen [facility] [address]-36 7.5-325 MG Orally every 6 hrs Mar 12, 2016 1 tablet as needed Zyrtec Allergy [facility] [address]-38 10 MG Orally Once a day 1 tablet Advair Diskus [facility] [address]-92 250-50 mcg/dose May 05, 2014 1 puffs by Inhalation route 2 times per day Tramadol HCl [facility] [address]-58 50 MG Orally every 6 hrs 1 tablet as needed ProAir HFA [facility] [address]-85 90 mcg/actuation 4 times a day October 05, 2011 inhale 2 puffs by inhalation route every 6 hours as needed for 30 day(s) Lisinopril [facility] [address]-90 10 mg Apr 30, 2014 1 tablet by Oral route 1 time per day Humalog KwikPen [facility] [address]-62 100 UNIT/ML Subcutaneous 3 times a day Mar 12, 2016 10 units Fenofibrate [facility] [address]-85 48 MG Orally Once a day 1 tablet Symbicort [facility] [address]-83 80-4.5 MCG/ACT Inhalation Twice a day 2 puffs Methocarbamol [facility] [address]-68 500 MG Orally 2 times a day 2 Gabapentin [facility] [address]-73 600 MG Orally Three times a day Apr 08, 2015 1 capsule Levemir FlexTouch [facility] [address]-77 100 UNIT/ML Subcutaneous twice a day 78 units GlipiZIDE [facility] [address]-24 10 MG before meal July 09, 2014 1 tablet by Oral route 2 times per day Zoloft [facility] [address]-00 50 MG Orally Once a day Apr 08, 2015 1 tablet Diflucan [facility] [address]-34 150 MG Orally Once a day Mar 28, 2016 1 tablet Vitamin D [facility] [address]-48 1000 UNIT Orally Once a day 1 tablet Multivitamin Adult [facility] [address]58-52658 - Orally not defined Metformin HCl [facility] [address]-19 1000 MG Orally Twice a day 1 tablet with meals Zofran [facility] [address]-86 8 MG Orally Once a day 1 tablet Fish Oil [facility] [address]-03 1000 MG Orally Once a day 2 Xanax [facility] [address]-54 1 MG Orally Twice a day November 17, 2015 1 tablet Flonase [facility] [address]-12 50 MCG/ACT Nasally Once a day Jan 17, 2015 1 spray in each nostril Meloxicam [facility] [address]-47 15 MG Orally Once a day 1 tablet Aspirin [facility] [address]-03 81 MG Orally Once a day 1 tablet PredniSONE [facility] [address]-96 20 mg Orally Once a day Mar 28, 2016 Apr 02, 2016 2 tablets Procedures Procedure Coding System Code Date Office Visit, Est Pt., Level 3 CPT-4 33972 Mar 28, 2016 TORADOL (IM) 60 MG/2ML (UP TO 15 MG) CPT-4 J1885 Mar 28, 2016 [facility] VISIT ESTABLISHED PATIENT CPT-4 G0467 Mar 28, 2016 THER/PROPH/DIAG INJ, SC/IM CPT-4 03772 Mar 28, 2016 Vital Signs Date/Time: Mar 28, 2016 Cardiac Monitoring Heart Rate 90 bpm Weight 234.0 lbs Height 64 in BMI 40.16 Index Blood Pressure Diastolic 70 mmHg Blood Pressure Systolic 110 mmHg Results No Known Results Summary Purpose eClinicalWorks Submission
--- OUTSIDE RECORDS SUMMARY | 2016-07-29 04:38 | XMS REPORT ---
Author Author AYLIN PURVIS [facility] eClinicalWorks Address Unknown Phone Unavailable Care Team Providers Care Parking Meter Collector Name Role Phone AYLIN PURVIS CP Unavailable Allergies, Adverse Reactions, Alerts Substance Reaction Event Type N.K.D.A. Info Not Available Non Drug Allergy Problems Problem Type Condition Code Onset Dates Condition Status Assessment intermediate current use of insulin Z79.4 Active Problem Diabetes type 2, controlled E11.9 Active Assessment Type 2 diabetes mellitus with hyperglycemia E11.65 Active Problem intermediate current use of insulin Z79.4 Active Problem [...] Instructions Start Date End Date Status Dosage Methocarbamol [facility] [address]-99 500 MG Orally 2 times a day 2 Metformin HCl [facility] [address]-60 1000 MG Orally Twice a day 1 tablet with meals Fish Oil [facility] [address]-85 1000 MG Orally Once a day 2 Aspirin [facility] [address]-12 81 MG Orally Once a day 1 tablet PredniSONE [facility] [address]-01 20 mg Orally Once a day Mar 07, 2016 Mar 12, 2016 2 tablets Multivitamin Adult [facility] 15[address]-35476 - Orally not defined Symbicort [facility] [address]-05 80-4.5 MCG/ACT Inhalation Twice a day 2 puffs Fenofibrate [facility] [address]-33 48 MG Orally Once a day 1 tablet Levemir FlexTouch [facility] [address]-12 100 UNIT/ML Subcutaneous twice a day 78 units Humalog KwikPen [facility] [address]-80 100 UNIT/ML Subcutaneous 3 times a day Mar 12, 2016 10 units Diflucan [facility] [address]-07 150 MG Orally Once a day Mar 12, 2016 1 tablet Zyrtec Allergy [facility] [address]-51 10 MG Orally Once a day 1 tablet Zofran [facility] [address]-48 8 MG Orally Once a day 1 tablet Advair Diskus [facility] [address]-54 250-50 mcg/dose May 05, 2014 1 puffs by Inhalation route 2 times per day Flonase [facility] [address]-49 50 MCG/ACT Nasally Once a day Jan 17, 2015 1 spray in each nostril Simvastatin [facility] [address]-10 80 MG Orally Jun 05, 2014 1 tablet by Oral route 1 time per day Vitamin D [facility] [address]-48 1000 UNIT Orally Once a day 1 tablet GlipiZIDE [facility] [address]-39 10 MG before meal July 09, 2014 1 tablet by Oral route 2 times per day Meloxicam [facility] [address]-15 15 MG Orally Once a day 1 tablet Famotidine [facility] [address]-39 20 MG before meals July 23, 2014 1 tablet by Oral route 2 times per day ProAir HFA [facility] [address]-92 90 mcg/actuation 4 times a day October 05, 2011 inhale 2 puffs by inhalation route every 6 hours as needed for 30 day(s) Gabapentin [facility] [address]-99 600 MG Orally Three times a day Apr 08, 2015 1 capsule Lisinopril [facility] [address]-45 10 mg Apr 30, 2014 1 tablet by Oral route 1 time per day Xanax [facility] [address]-10 1 MG Orally Twice a day November 17, 2015 1 tablet [place] [facility] [address]-93 7.5-325 MG Orally every 6 hrs Mar 12, 2016 1 tablet as needed Tramadol HCl [facility] [address]-28 50 MG Orally every 6 hrs 1 tablet as needed Zoloft [facility] [address]-38 50 MG Orally Once a day Apr 08, 2015 1 tablet Procedures Procedure Coding System Code Date Office Visit, Est Pt., Level 3 CPT-4 77606 Mar 12, 2016 [facility] VISIT ESTABLISHED PATIENT CPT-4 G0467 Mar 12, 2016 Vital Signs Date/Time: Mar 12, 2016 Cardiac Monitoring Heart Rate 72 bpm Weight 228.0 lbs Height 64 in BMI 39.13 Index Blood Pressure Diastolic 64 mmHg Blood Pressure Systolic 124 mmHg Results No Known Results Summary Purpose eClinicalWorks Submission
--- OUTSIDE RECORDS SUMMARY | 2016-07-29 04:38 | XMS REPORT ---
Author Author AYLIN PURVIS [facility] Address [address] [place] [address] Care Team Providers Care Subgrade Tester Name Role Phone AYLIN PURVIS Unavailable PROBLEMS Type Condition ICD9-CM Code [id number] Code Onset Dates Condition Status SNOMED Code Problem Type 2 diabetes mellitus without complications E11.9 Active 812103381 Problem Diabetes type 2, uncontrolled E11.65 Active 613085388 Assessment assisted current use of insulin Z79.4 Dec, Active 791724592 Problem Diabetes type 2, controlled E11.9 Active 62108828 Assessment Type 2 diabetes mellitus without complications E11.9 Dec, Active 258912263 ALLERGIES Unknown Allergies SOCIAL HISTORY No smoking Hx information available PLAN OF CARE VITAL SIGNS Height 64 in 2015-12-12 Weight 227 lbs 2015-12-12 Heart Rate 90 bpm 2015-12-12 Respiratory Rate 20 2015-12-12 BMI 38.96 kg/m2 2015-12-12 Blood pressure systolic 130 mmHg 2015-12-12 Blood pressure diastolic 90 mmHg 2015-12-12 MEDICATIONS Medication Instructions Dosage Frequency Start Date End Date Duration Status Aspirin 81 MG Orally Once a day 1 tablet 24h Active ProAir HFA 90 mcg/actuation inhale 2 puffs by inhalation route every 6 hours as needed for 30 day(s) Oct, Active Meloxicam 15 MG Orally Once a day 1 tablet 24h Active Methocarbamol 500 MG Orally 2 times a day 2 12h Active Fenofibrate 48 MG Orally Once a day 1 tablet 24h Active Fish Oil 1000 MG Orally Once a day 2 24h Active Lisinopril 10 mg 1 tablet by Oral route 1 time per day Apr, Active Flonase 50 MCG/ACT Nasally Once a day 1 spray in each nostril 24h Jan, 30 day(s) Active Advair Diskus 250-50 mcg/dose 1 puffs by Inhalation route 2 times per day Apr, Active Symbicort 80-4.5 MCG/ACT Inhalation Twice a day 2 puffs 12h Active [place] 7.5-325 MG Orally every 6 hrs 1 tablet as needed 6h Aug, Active Tramadol HCl 50 MG Orally every 6 hrs 1 tablet as needed 6h Active Famotidine 20 MG 1 tablet by Oral route 2 times per day Jul, Active Levemir FlexTouch 100 UNIT/ML Subcutaneous at bedtime 72 units Active Metformin HCl 1000 MG Orally Twice a day 1 tablet with meals 12h Active Simvastatin 80 MG 1 tablet by Oral route 1 time per day May, Active Gabapentin 600 MG Orally Three times a day 1 capsule 8h Apr, 30 Active Zoloft 50 MG Orally Once a day 1 tablet 24h Apr, 30 day(s) Active GlipiZIDE 10 MG 1 tablet by Oral route 2 times per day Jul, Active Xanax 1 MG Orally Twice a day 1 tablet 12h Nov, Active RESULTS No Results PROCEDURES Procedure Date Ordered Related Diagnosis Body Site [facility] VISIT ESTABLISHED PATIENT Dec 12, 2015 Office Visit, Est Pt., Level 3 Dec 12, 2015 IMMUNIZATIONS No Known Immunizations
--- OUTSIDE RECORDS SUMMARY | 2016-07-29 04:38 | XMS REPORT ---
Author Author NATALYA HANSON [facility] eClinicalWorks Address Unknown Phone Unavailable Care Team Providers Care Loan Examiner Name Role Phone NATALYA HANSON CP Unavailable Allergies, Adverse Reactions, Alerts Substance Reaction Event Type N.K.D.A. Info Not Available Non Drug Allergy Problems Problem Type Condition ICD-9 Code Onset Dates Condition Status Problem Abdominal pain, unspecified site 789.00 Active Problem Other malaise and fatigue 780.79 Active Problem Scabies 133.0 Active Problem Urinary frequency 788.41 Active Problem Unspecified viral infection, in conditions classified elsewhere and of unspecified site 079.99 Active Problem Unspecified backache 724.5 Active Assessment Upper respiratory infection, acute 465.9 Active Problem Acute upper respiratory infections of [...] Instructions Start Date End Date Status Dosage Flonase [facility] [address]-05 50 MCG/ACT Nasally Once a day Jan 17, 2015 1 spray in each nostril ProAir HFA [facility] [address]-51 90 mcg/actuation October 05, 2011 inhale 2 puffs by inhalation route every 6 hours as needed for 30 day(s) Tramadol HCl [facility] [address]-26 50 MG Orally 3 times a day 2 GlipiZIDE [facility] [address]-48 10 MG before meal July 09, 2014 1 tablet by Oral route 2 times per day Augmentin [facility] [address]-22 875-125 MG Orally every 12 hrs Jan 17, 2015 Jan 27, 2015 1 tablet Advair Diskus [facility] [address]-47 250-50 mcg/dose May 05, 2014 1 puffs by Inhalation route 2 times per day Methocarbamol [facility] [address]-09 500 MG Orally 2 times a day 2 Famotidine [facility] [address]-91 20 MG before meals July 23, 2014 1 tablet by Oral route 2 times per day Meloxicam [facility] [address]-67 15 MG Orally Once a day 1 tablet Prempro [facility] [address]-94 0.45-1.5 MG Orally Once a day 1 tablet Gabapentin [facility] [address]-35 100 MG Orally not defined Fish Oil [facility] [address]-80 1000 MG Orally Once a day 2 Lisinopril [facility] [address]-67 10 mg Apr 30, 2014 1 tablet by Oral route 1 time per day Zofran ODT [facility] [address]-72 8 mg May 05, 2014 1 tablet by Oral route every 8 hours PRN nausea or vomiting Aspirin [facility] [address]-01 81 MG Orally Once a day 1 tablet Tessalon Perles [facility] [address]-42 100 MG Orally Three times a day Jan 17, 2015 Jan 31, 2015 1 capsule as needed Metformin HCl [facility] [address]-43 1000 MG Orally Twice a day 1 tablet with meals Simvastatin [facility] [address]-40 80 MG Orally Jun 05, 2014 1 tablet by Oral route 1 time per day Fenofibrate [facility] [address]-24 48 MG Orally Once a day 1 tablet Procedures Procedure Coding System Code Date Office Visit, Est Pt., Level 3 CPT-4 80831 Jan 17, 2015 Vital Signs Date/Time: Jan 17, 2015 Temperature 98.2 F Weight 222.6 lbs Height 64 in BMI 38.21 Index Blood Pressure Diastolic 80 mmHg Blood Pressure Systolic 128 mmHg Cardiac Monitoring Heart Rate 88 bpm Results No Known Results Summary Purpose eClinicalWorks Submission
--- OUTSIDE RECORDS SUMMARY | 2016-07-29 04:38 | XMS REPORT ---
Author Author AYLIN PURVIS Organization eClinicalWorks Address Unknown Phone Unavailable Care Team Providers Care Manager Banking Name Role Phone AYLIN PURVIS CP Unavailable Allergies No Known Allergies Problems Problem Type Condition Code Onset Dates Condition Status Problem Diabetes type 2, controlled E11.9 Active Problem alf current use of insulin Z79.4 Active Problem [...] Instructions Start Date End Date Status Dosage Xanax [facility] [address]-79 1 MG Orally Twice a day November 17, 2015 1 tablet Results No Known Results Summary Purpose eClinicalWorks Submission
--- OUTSIDE RECORDS SUMMARY | 2016-07-29 04:38 | XMS REPORT ---
Author Author AYLIN PURVIS [facility] eClinicalWorks Address Unknown Phone Unavailable Care Team Providers Care Lace Roller Operator Name Role Phone AYLIN PURVIS CP Unavailable Allergies, Adverse Reactions, Alerts Substance Reaction Event Type N.K.D.A. Info Not Available Non Drug Allergy Problems Problem Type Condition Code Onset Dates Condition Status Assessment Diabetes type 2, controlled E11.9 Active Assessment Knee pain, left M25.562 Active Problem Diabetes type 2, controlled E11.9 Active Assessment Mood disorder F39 Active Medications Medication Code System Code Instructions Start Date End Date Status Dosage Gabapentin [facility] [address]-15 300 MG Orally Three times a day Apr 08, 2015 1 capsule Zoloft [facility] [address]-41 50 MG Orally Once a day Apr 08, 2015 1 tablet Procedures Procedure Coding System Code Date Office Visit, Est Pt., Level 3 CPT-4 45080 Apr 08, 2015 [facility] VISIT ESTABLISHED PATIENT CPT-4 G0467 Apr 08, 2015 Vital Signs Date/Time: Apr 08, 2015 Temperature 96.6 F Weight 213.8 lbs Height 64 in BMI 36.69 Index Blood Pressure Diastolic 78 mmHg Blood Pressure Systolic 126 mmHg Cardiac Monitoring Heart Rate 80 bpm Results No Known Results Summary Purpose eClinicalWorks Submission
--- OUTSIDE RECORDS SUMMARY | 2016-07-29 04:38 | XMS REPORT ---
Author Author AYLIN PURVIS Organization e[employer] Address Unknown Phone Unavailable Care Team Providers Care Financial Reporting Manager Name Role Phone AYLIN PURVIS CP Unavailable [...] Instructions Start Date End Date Status Dosage Edmundo [facility] [address]-37 5 MG Orally Once a day Mar 21, 2015 1 tablet Results No Known Results Summary Purpose eClinicalWorks Submission
--- OUTSIDE RECORDS SUMMARY | 2016-07-29 04:38 | XMS REPORT ---
Author Author AYLIN PURVIS [facility] Address [address] [place] [address] Care Team Providers Care Musical Instruments Assembler Name Role Phone AYLIN PURVIS Unavailable PROBLEMS Type Condition ICD9-CM Code [id number] Code Onset Dates Condition Status SNOMED Code Problem Adjustment disorder with mixed anxiety and depressed mood F43.23 Active 03901246 Problem Type 2 diabetes mellitus without complications E11.9 Active 949272268 Assessment Uncontrolled type 2 diabetes mellitus without complication, without long-term current use of insulin E11.65 Jan, Active 925705239 Problem Diabetes type 2, uncontrolled E11.65 Active 639989749 Problem Diabetes type 2, controlled E11.9 Active 52538861 ALLERGIES Substance Reaction Event Type Date Status N.K.D.A. Unknown Non Drug Allergy Jan, Unknown SOCIAL HISTORY No smoking Hx information available PLAN OF CARE VITAL SIGNS Height 64 in 2016-01-12 Weight 227.3 lbs 2016-01-12 Heart Rate 88 bpm 2016-01-12 Respiratory Rate 20 2016-01-12 BMI 39.01 kg/m2 2016-01-12 Blood pressure systolic 124 mmHg 2016-01-12 Blood pressure diastolic 84 mmHg 2016-01-12 MEDICATIONS Medication Instructions Dosage Frequency Start Date End Date Duration Status GlipiZIDE 10 MG 1 tablet by Oral route 2 times per day Jul, Active ProAir HFA 90 mcg/actuation inhale 2 puffs by inhalation route every 6 hours as needed for 30 day(s) Oct, Active Metformin HCl 1000 MG Orally Twice a day 1 tablet with meals 12h Active Famotidine 20 MG 1 tablet by Oral route 2 times per day Jul, Active Cetirizine HCl 10 mg Orally Once a day 1 tablet 24h Oct, Feb, 30 day(s) Active Fenofibrate 48 MG Orally Once a day 1 tablet 24h Active Meloxicam 15 MG Orally Once a day 1 tablet 24h Active [place] 7.5-325 MG Orally every 6 hrs 1 tablet as needed 6h Aug, Active Gabapentin 600 MG Orally Three times a day 1 capsule 8h Apr, 30 Active Levemir FlexTouch 100 UNIT/ML Subcutaneous at bedtime 72 units Active Methocarbamol 500 MG Orally 2 times a day 2 12h Active Symbicort 80-4.5 MCG/ACT Inhalation Twice a day 2 puffs 12h Active Fish Oil 1000 MG Orally Once a day 2 24h Active Xanax 1 MG Orally Twice a day 1 tablet 12h Nov, Active Flonase 50 MCG/ACT Nasally Once a day 1 spray in each nostril 24h Jan, 30 day(s) Active Simvastatin 80 MG 1 tablet by Oral route 1 time per day May, Active Aspirin 81 MG Orally Once a day 1 tablet 24h Active Tramadol HCl 50 MG Orally every 6 hrs 1 tablet as needed 6h Active Zoloft 50 MG Orally Once a day 1 tablet 24h Apr, 30 day(s) Active Lisinopril 10 mg 1 tablet by Oral route 1 time per day Apr, Active Advair Diskus 250-50 mcg/dose 1 puffs by Inhalation route 2 times per day Apr, Active RESULTS No Results PROCEDURES Procedure Date Ordered Related Diagnosis Body Site PENDING [facility] VISIT ESTABLISHED PATIENT Jan 12, 2016 Office Visit, Est Pt., Level 3 Jan 12, 2016 IMMUNIZATIONS No Known Immunizations
--- OUTSIDE RECORDS SUMMARY | 2016-07-29 04:39 | XMS REPORT ---
Author Author VEENA PUENTES [facility] Address [address] [place] [address] Care Team Providers Care Bun Icer Name Role Phone VEENA PUENTES Unavailable PROBLEMS Type Condition ICD9-CM Code [id number] Code Onset Dates Condition Status SNOMED Code Problem Adjustment disorder with mixed anxiety and depressed mood F43.23 Active 31107821 Problem Type 2 diabetes mellitus without complications E11.9 Active 266316864 Assessment Adjustment disorder with mixed anxiety and depressed mood F43.23 14 Jan, 2016 Active 35866809 Problem Diabetes type 2, uncontrolled E11.65 Active 854450501 Problem Diabetes type 2, controlled E11.9 Active 33310340 ALLERGIES Unknown Allergies SOCIAL HISTORY No smoking Hx information available PLAN OF CARE VITAL SIGNS MEDICATIONS Unknown Medications RESULTS No Results PROCEDURES Procedure Date Ordered Related Diagnosis Body Site [facility] VISIT MENTAL HEALTH ESTAB PT Jan 18, 2016 Psychotherapy, patient &/family, 30 minutes, established patient Jan 18, 2016 IMMUNIZATIONS No Known Immunizations
--- OUTSIDE RECORDS SUMMARY | 2016-07-29 04:39 | XMS REPORT ---
Author Author AYLIN PURVIS Organization e[employer] Address Unknown Phone Unavailable Care Team Providers Care Spreader Operator Name Role Phone AYLIN PURVIS CP [...] Date End Date Status Dosage Diflucan [facility] [address]-68 150 MG Orally Once a day Mar 09, 2015 1 tablet Results No Known Results Summary Purpose eClinicalWorks Submission
--- OUTSIDE RECORDS SUMMARY | 2016-07-29 04:39 | XMS REPORT ---
Author AYLIN Goel [facility] eClinicalWorks Address Unknown Phone Unavailable Care Team Providers Care Terrazzo Layer Helper Name Role Phone AYLIN PURVIS CP Unavailable Allergies, Adverse Reactions, Alerts Substance Reaction Event Type N.K.D.A. Info Not Available Non Drug Allergy Problems Problem Type Condition Code Onset Dates Condition Status Problem Chronic fatigue R53.82 Active Problem Adjustment disorder with mixed anxiety and depressed mood F43.23 Active Problem Obstructive sleep apnea syndrome G47.33 Active Problem Diabetes type 2, controlled E11.9 Active Assessment Acute bilateral low back pain without sciatica M54.5 Active Problem Type 2 diabetes mellitus without complications E11.9 Active Problem Diabetes type 2, uncontrolled E11.65 Active Medications Medication Code System Code Instructions Start Date End Date Status Dosage Famotidine [facility] [address]-89 20 MG before meals July 23, 2014 1 tablet by Oral route 2 times per day Meloxicam [facility] [address]-59 15 MG Orally Once a day 1 tablet Metformin HCl [facility] [address]-50 1000 MG Orally Twice a day 1 tablet with meals Flonase [facility] [address]-63 50 MCG/ACT Nasally Once a day Jan 17, 2015 1 spray in each nostril Advair Diskus [facility] [address]-34 250-50 mcg/dose May 05, 2014 1 puffs by Inhalation route 2 times per day Xanax [facility] [address]-43 1 MG Orally Twice a day November 17, 2015 1 tablet Tramadol HCl [facility] [address]-08 50 MG Orally every 6 hrs 1 tablet as needed GlipiZIDE [facility] [address]-75 10 MG before meal July 09, 2014 1 tablet by Oral route 2 times per day Fenofibrate [facility] [address]-99 48 MG Orally Once a day 1 tablet Lisinopril [facility] [address]-02 10 mg Apr 30, 2014 1 tablet by Oral route 1 time per day Levemir FlexTouch [facility] [address]-79 100 UNIT/ML Subcutaneous twice a day 78 units Simvastatin [facility] [address]-78 80 MG Orally Jun 05, 2014 1 tablet by Oral route 1 time per day Gabapentin [facility] [address]-99 600 MG Orally Three times a day Apr 08, 2015 1 capsule PredniSONE [facility] [address]-70 20 mg Orally Once a day Mar 07, 2016 Mar 12, 2016 2 tablets Fish Oil [facility] [address]-10 1000 MG Orally Once a day 2 Aspirin [facility] [address]-83 81 MG Orally Once a day 1 tablet ProAir HFA [facility] [address]-64 90 mcg/actuation 4 times a day October 05, 2011 inhale 2 puffs by inhalation route every 6 hours as needed for 30 day(s) Zoloft [facility] [address]-07 50 MG Orally Once a day Apr 08, 2015 1 tablet Methocarbamol [facility] [address]-62 500 MG Orally 2 times a day 2 Symbicort [facility] [address]-42 80-4.5 MCG/ACT Inhalation Twice a day 2 puffs [place] [facility] [address]-49 7.5-325 MG Orally every 6 hrs August 05, 2015 1 tablet as needed Procedures Procedure Coding System Code Date Office Visit, Est Pt., Level 3 CPT-4 07513 Mar 07, 2016 TORADOL (IM) 60 MG/2ML (UP TO 15 MG) CPT-4 J1885 Mar 07, 2016 [facility] VISIT ESTABLISHED PATIENT CPT-4 G0467 Mar 07, 2016 THER/PROPH/DIAG INJ, SC/IM CPT-4 53926 Mar 07, 2016 Vital Signs Date/Time: Mar 07, 2016 Cardiac Monitoring Heart Rate 92 bpm Weight 230.4 lbs Height 64 in BMI 39.54 Index Blood Pressure Diastolic 90 mmHg Blood Pressure Systolic 134 mmHg Results No Known Results Summary Purpose eClinicalWorks Submission
--- OUTSIDE RECORDS SUMMARY | 2016-07-29 04:39 | XMS REPORT ---
Author Author AYLIN PURVIS [facility] Address [address] [place] [address] Care Team Providers Care Market Research Coordinator Name Role Phone AYLIN PURVIS Unavailable PROBLEMS Type Condition ICD9-CM Code [id number] Code Onset Dates Condition Status SNOMED Code Assessment Renal lithiasis N20.0 Jan, Active 71789096 Problem Obstructive sleep apnea syndrome G47.33 Active 56501154 Problem Chronic fatigue R53.82 Active 06094898 Problem Diabetes type 2, uncontrolled E11.65 Active 373874329 Problem Diabetes type 2, controlled E11.9 Active 98043695 Problem Adjustment disorder with mixed anxiety and depressed mood F43.23 Active 54002452 Problem Type 2 diabetes mellitus without complications E11.9 Active 405942014 ALLERGIES Substance Reaction Event Type Date Status N.K.D.A. Unknown Non Drug Allergy Jan, Unknown SOCIAL HISTORY No smoking Hx information available PLAN OF CARE VITAL SIGNS Height 64 in 2016-01-19 Weight 230.0 lbs 2016-01-19 Heart Rate 104 bpm 2016-01-19 Respiratory Rate 20 2016-01-19 BMI 39.48 kg/m2 2016-01-19 Blood pressure systolic 186 mmHg 2016-01-19 Blood pressure diastolic 97 mmHg 2016-01-19 MEDICATIONS Medication Instructions Dosage Frequency Start Date End Date Duration Status Fish Oil 1000 MG Orally Once a day 2 24h Active Famotidine 20 MG 1 tablet by Oral route 2 times per day Jul, Active Flonase 50 MCG/ACT Nasally Once a day 1 spray in each nostril 24h Jan, 30 day(s) Active GlipiZIDE 10 MG 1 tablet by Oral route 2 times per day Jul, Active [place] 7.5-325 MG Orally every 6 hrs 1 tablet as needed 6h Aug, Active Aspirin 81 MG Orally Once a day 1 tablet 24h Active Metformin HCl 1000 MG Orally Twice a day 1 tablet with meals 12h Active Simvastatin 80 MG 1 tablet by Oral route 1 time per day May, Active Xanax 1 MG Orally Twice a day 1 tablet 12h Nov, Active Tramadol HCl 50 MG Orally every 6 hrs 1 tablet as needed 6h Active Methocarbamol 500 MG Orally 2 times a day 2 12h Active Advair Diskus 250-50 mcg/dose 1 puffs by Inhalation route 2 times per day Apr, Active Symbicort 80-4.5 MCG/ACT Inhalation Twice a day 2 puffs 12h Active Lisinopril 10 mg 1 tablet by Oral route 1 time per day Apr, Active Gabapentin 600 MG Orally Three times a day 1 capsule 8h Apr, 30 Active Fenofibrate 48 MG Orally Once a day 1 tablet 24h Active Meloxicam 15 MG Orally Once a day 1 tablet 24h Active Levemir FlexTouch 100 UNIT/ML Subcutaneous at bedtime 72 units Active Zoloft 50 MG Orally Once a day 1 tablet 24h Apr, 30 day(s) Active ProAir HFA 90 mcg/actuation inhale 2 puffs by inhalation route every 6 hours as needed for 30 day(s) Oct, Active Cetirizine HCl 10 mg Orally Once a day 1 tablet 24h Oct, Feb, 30 day(s) Active RESULTS No Results PROCEDURES Procedure Date Ordered Related Diagnosis Body Site [facility] VISIT ESTABLISHED PATIENT Jan 19, 2016 Office Visit, Est Pt., Level 3 Jan 19, 2016 IMMUNIZATIONS No Known Immunizations
== END 2016-07-25 12:55 | disposition home or self-care (01) ==
LOC: DELPENDDIS → SDC 07:00
PROVIDERS: ATTEND Orthopaedic Surgery
DX: S43.421A Sprain of right rotator cuff capsule, initial encounter (principal); S43.431A Superior glenoid labrum lesion of right shoulder, initial encounter; M94.211 Chondromalacia, right shoulder; W19.XXXA Unspecified fall, initial encounter; Y92.019 Unspecified place in single-family (private) house as the place of occurrence of the external cause; Y99.8 Other external cause status; E11.9 Type 2 diabetes mellitus without complications; E78.5 Hyperlipidemia, unspecified; I10 Essential (primary) hypertension; Z79.899 Other long term (current) drug therapy
CPT/HCPCS: 82962

== ENCOUNTER → 2017-01-31 | Outpatient (CLI) | payer MEDICARE, MEDICAID ==
[~2017-01-31] MED LIST changes: +OXYC-197 PO
== END ==
LOC: RAD 10:39
PROVIDERS: ATTEND Nurse Practitioner Family
DX: R06.09 Other forms of dyspnea (principal); I10 Essential (primary) hypertension; E78.2 Mixed hyperlipidemia
CPT/HCPCS: 93306

== ENCOUNTER → 2017-02-05 | Outpatient (CLI) | payer MEDICARE, MEDICAID ==
[~2017-02-05] VITALS: Ht 162.6 cm; Wt 108.0 kg
[~2017-02-05] MED LIST changes: +CATHETER FLUSH 10 ML SYR IV PRN; +REGADENOSON 0.4 MG/5 ML SYR (LEXISCAN) IV ONE
[2017-02-05 10:03] VITALS: BP 159/94
== END ==
LOC: CARD 08:12
PROVIDERS: ATTEND Nurse Practitioner Family
DX: I10 Essential (primary) hypertension (principal); E78.2 Mixed hyperlipidemia; R06.09 Other forms of dyspnea
CPT/HCPCS: 78452; 93017

== ENCOUNTER → 2017-11-01 | Outpatient (CLI) | payer MEDICARE, MEDICAID ==
[~2017-11-01] MED LIST changes: -CATHETER FLUSH 10 ML SYR IV PRN; +IOHEXOL 350 MG/ML 100 ML (OMNIPAQUE 350) VIAL IV ONE; +NS 250 ML (IVPB) BAG IV ONE; -REGADENOSON 0.4 MG/5 ML SYR (LEXISCAN) IV ONE; -SIMV80TA3 PO; +SIMV80TA5 PO
--- NOTE | 2017-11-01 13:32 | Diagnostic Imaging Report ---
PROCEDURE: CT chest with contrast only. TECHNIQUE: Multiple contiguous axial images were obtained through the chest after administration of intravenous contrast. INDICATION: Shortness of breath with exertion. COMPARISON: 03/24/2016 FINDINGS: There is no significant mediastinal, axillary and/or hilar lymphadenopathy. Tiny low-density foci right lobe of thyroid gland. The heart size is unremarkable. Thoracic aorta normal in contour. Trace pericardial effusion. The lung george are clear of infiltrate. No significant pleural effusion. Likely changes of hepatic steatosis. Cholecystectomy clips are present. Slightly accentuated thoracic kyphotic curvature and advanced degenerative changes of the thoracic spine with disc space narrowing. IMPRESSION: Negative for acute abnormality about the chest. Dictated by: Dictated on workstation # [id number]
== END ==
LOC: RAD 12:18
PROVIDERS: ATTEND Nurse Practitioner Community Health
DX: R06.02 Shortness of breath (principal); R06.09 Other forms of dyspnea
CPT/HCPCS: 71260

== ENCOUNTER → 2018-07-22 | Outpatient (CLI) | payer MEDICARE, MEDICAID ==
[~2018-07-22] MED LIST changes: -GABA600T2 PO; +GBPN600T PO; -IOHEXOL 350 MG/ML 100 ML (OMNIPAQUE 350) VIAL IV ONE; -NS 250 ML (IVPB) BAG IV ONE; -OXYC-197 PO; +OXYC1TAB87 PO; +SIMV80TA21 PO; -SIMV80TA5 PO
--- NOTE | 2018-07-23 12:48 | Diagnostic Imaging Report ---
INDICATION: Routine screening. Comparison is made with prior mammogram from 10/05/2014 and 07/20/2013. 2-D and 3-D bilateral screening mammography was performed with a Computer Aided Detection (CAD) system. FINDINGS: Scattered fibroglandular densities are identified bilaterally. The parenchymal pattern is stable. No dominant mass or malignant appearing microcalcifications are seen. The axillae are unremarkable. IMPRESSION: No mammographic features suspicious for malignancy are identified. ACR BI-RADS Category 1: Negative. Result letter will be mailed to the patient. Note: At least 10% of breast cancer is not imaged by mammography. Dictated by: Dictated on workstation # [id number]
== END ==
LOC: RAD 08:03
PROVIDERS: ATTEND Nurse Practitioner Community Health
DX: Z12.31 Encounter for screening mammogram for malignant neoplasm of breast (principal)
CPT/HCPCS: 77067

== ENCOUNTER → 2019-04-07 | Outpatient (CLI) | payer MEDICARE, MEDICAID ==
[~2019-04-07] VITALS: Ht 163 cm; Wt 109.0 kg
[~2019-04-07] MED LIST changes: +CATHETER FLUSH 10 ML SYR IV PRN; +REGADENOSON 0.4 MG/5 ML SYR (LEXISCAN) IV ONE
[2019-04-07 13:00] VITALS: BP 118/66
[2019-04-07 13:03] VITALS: BP 140/66
--- NOTE | 2019-04-09 23:24 | STRESS TEST ---
DATE OF SERVICE: 04/07/2019 RESTING AND POST REGADENOSON TECHNETIUM-99M TETROFOSMIN SPECT CT IMAGING ORDERING PHYSICIAN: HU Aguirre OTHER PHYSICIAN: HU Gutiérrez CLINICAL DIAGNOSES: Shortness of breath, hypertension. Baseline images were carried out after injection of 10.38 mCi of technetium-99m Tetrofosmin. This was followed by 0.4 mg regadenoson and 28.7 mCi of technetium-99m Tetrofosmin for stress imaging. The electrocardiogram showed sinus rhythm at baseline. It did not change significantly with regadenoson infusion. Review of images at rest and following stress does not indicate any significant perfusion defects consistent with significant myocardial ischemia or infarction. Gated images show normal global left ventricular systolic function with normal regional wall motion. Left ventricular ejection fraction is calculated to be 81%. Left ventricular end diastolic volume is 26 mL. TID is absent (0.94). CONCLUSIONS: 1. No evidence of any significant myocardial ischemia or infarction on this study. 2. Normal regional wall motion. 3. Normal to hyperdynamic left ventricular systolic function with a calculated ejection fraction of 81%. Job ID: [id number] DocumentID: [id number] Dictated Date: 04/09/2019 17:16:15 Manager Night Date: 04/09/2019 23:23:58 Dictated By: ANGELA CERVANTES MD, MA, FACP, FACC,
== END ==
LOC: CARD 11:04
PROVIDERS: ATTEND Nurse Practitioner Family
DX: I10 Essential (primary) hypertension (principal); E78.2 Mixed hyperlipidemia
CPT/HCPCS: 78452; 93017; 93306

== ENCOUNTER → 2019-11-16 | Outpatient (CLI) | payer MEDICARE, MEDICAID ==
[~2019-11-16] MED LIST changes: -CATHETER FLUSH 10 ML SYR IV PRN; +FENO48TA10 PO; -FENO48TA5 PO; -REGADENOSON 0.4 MG/5 ML SYR (LEXISCAN) IV ONE
--- NOTE | 2019-11-16 14:06 | Diagnostic Imaging Report ---
INDICATION: Routine screening. Comparison is made with prior mammogram from 07/22/2018 and 10/05/2014. 2-D and 3-D bilateral screening mammography was performed with CAD. Scattered fibroglandular densities are identified bilaterally. The parenchymal pattern is stable. No dominant mass or malignant-appearing microcalcifications are seen. Axillae are unremarkable. IMPRESSION: BI-RADS Category 1 No mammographic features suspicious for malignancy are identified. ACR BI-RADS Category 1: Negative. Result letter will be mailed to the patient. Note: At least 10% of breast cancer is not imaged by mammography. Dictated by: Dictated on workstation # [id number]
== END ==
LOC: RAD 10:52
PROVIDERS: ATTEND Physician Assistant
DX: Z12.31 Encounter for screening mammogram for malignant neoplasm of breast (principal)
CPT/HCPCS: 77063; 77067

== ENCOUNTER 2019-11-24 05:33 | Outpatient (RCR) | payer MEDICARE, MEDICAID ==
[~2019-11-24] VITALS: Ht 162.6 cm; Wt 115.5 kg
[~2019-11-24 05:33] MED LIST changes: +ASPI-999 PO; +CETI10TA17 PO; +ERGO400T6 PO; +HYDR-4342 PO; +LISI-552 PO; +MELO15TA39 PO; +METF-397 PO; +MULT-567 PO; +OMEG100032 PO; +PREG225C PO; +RT-ALBUINH IH; +SERT50TA9 PO
[2019-11-27] MEDS ORDERED: OMEP20CA18 PO (15:17)
== END 2019-11-24 13:24 | disposition home or self-care (01) ==
LOC: PREOP 05:33
PROVIDERS: ATTEND Surgery
DX: Z01.812 Encounter for preprocedural laboratory examination (principal); K21.9 Gastro-esophageal reflux disease without esophagitis; Z20.828 Contact with and (suspected) exposure to other viral communicable diseases; Z86.010 Personal history of colon polyps
CPT/HCPCS: 87635

== ENCOUNTER 2019-11-27 13:03 | Day surgery (SDC) | payer MEDICARE, MEDICAID ==
[~2019-11-27] VITALS: Ht 162.6 cm; Wt 115.5 kg
[~2019-11-27 13:03] MED LIST changes: +HYDR-3817 PO; -HYDR-4342 PO
[2019-11-27] MEDS ORDERED: LACTATED RINGERS 1,000 ML IV STA (13:07)
[2019-11-27] MEDS ORDERED: HURRICAINE EXT TUBE (BENZOCAINE) XX PRN (13:15)
[2019-11-27] MEDS ORDERED: LACTATED RINGERS 1,000 ML IV ONE (13:17)
[2019-11-27 13:35] VITALS: BP 122/46
[2019-11-27] MEDS ORDERED: PROPOFOL INJECTION 50 ML IV ONE (14:08)
[2019-11-27] MEDS ORDERED: MIDAZOLAM 2 MG/2 ML (VERSED) VIAL ONE (14:09)
--- NOTE | 2019-11-27 14:18 | Progress Note-Pre Operative ---
Pre-Operative Progress Note H&P Reviewed The H&P was reviewed, patient examined and no changes noted. Date Seen by Provider: Nov 27, 2019 Time Seen by Provider: 14:18 Date H&P Reviewed: Nov 27, 2019 Time H&P Reviewed: 14:18 Pre-Operative Diagnosis: history of polyps gerd KENDAL EVANGELISTA DO Nov 27, 2019 14:18
--- NOTE | 2019-11-27 15:03 | Anesthesia-General Post-Op ---
MAC Patient Condition Mental Status/LOC: Same as Preop Cardiovascular: Satisfactory Nausea/Vomiting: Absent Respiratory: Satisfactory Pain: Controlled Complications: Absent Post Op Complications Complications None Follow Up Care/Instructions Patient Instructions None needed. Anesthesiology Discharge Order Discharge Order Patient is doing well, no complaints, stable vital signs, no apparent adverse anesthesia problems. No complications reported per nursing. QUINTIN DARBY CRNA Nov 27, 2019 15:03
[2019-11-27 15:10] VITALS: BP 125/58
--- NOTE | 2019-11-27 15:15 | Progress Note-Post Operative ---
Post-Operative Progess Note Surgeon (s)/Twist Packer (s) Surgeon KENDAL EVANGELISTA DO Twist Packer: na Pre-Operative Diagnosis history of polyps gerd Post-Operative Diagnosis small hiatal hernia, diverticulosis Procedure & Operative Findings Date of Procedure 11/27/19 Procedure Performed/Findings egd c biopsies, colonoscopy Anesthesia Type per sergeant of officers Estimated Blood Loss Estimated blood loss (mL): minimal Specimens/Packing Specimens Removed antrum, ge KENDAL EVANGELISTA DO Nov 27, 2019 15:15
[2019-11-27] MEDS ORDERED: OMEP20CA18 PO (15:17)
--- NOTE | 2019-11-27 15:18 | Discharge Inst-Simple/Standard ---
Discharge Inst-Standard Discharge Medications New, Converted or Re-Newed RX: Transmitted to Pharmacy Patient Instructions/Follow Up Plan of Care/Instructions/FU: 3 weeks kim[place]lee Activity as Tolerated: Yes Discharge Diet: Regular Diet (high fiber) KENDAL EVANGELISTA DO Nov 27, 2019 15:18
[2019-11-27 15:40] VITALS: BP 120/62
[2019-11-27 15:55] VITALS: BP 120/62
--- NOTE | 2019-11-28 02:21 | OPERATIVE REPORT ---
DATE OF SERVICE: 11/27/2019 PREOPERATIVE DIAGNOSES: History of polyps, gastroesophageal reflux disease. POSTOPERATIVE DIAGNOSES: Small hiatal hernia, diverticulosis. PROCEDURE: EGD with biopsies, colonoscopy. SURGEON: Kendal Colon DO ANESTHESIA: Per INSPECTOR OUTSIDE PRODUCTION. ESTIMATED BLOOD LOSS: None. COMPLICATIONS: None. INDICATIONS: The patient is a 59-year-old female with history of colon polyps and reflux, needs EGD and colonoscopy. She understands risks and benefits of procedure and wished to proceed with procedures. Consent was signed in the chart. DESCRIPTION OF PROCEDURE: The patient was taken to the endoscopy suite, placed in left lateral recumbent position. Timeout was performed. Scope was inserted in mouth, down the esophagus, stomach and into the duodenum without difficulty. There were no polyps, masses or ulcerations within the duodenum. Scope was then slowly retracted back into the stomach where it was further insufflated. No polyps, masses or ulcerations. Biopsy of the antrum was obtained. Scope was retroflexed noting a very small hiatal hernia. Scope was returned to its normal position, slowly withdrawn to distal esophagus. No polyps, masses or ulcerations. Minimal erythematous changes. Biopsy of the GE junction was obtained. Scope was then slowly retracted back until completely removed. Digital rectal exam was performed. There were no palpable polyps, masses or ulcerations. Scope was inserted in the rectum and advanced all the way to cecum with minimal difficulty. Prep was adequate. Scope was then slowly retracted back. There were no polyps, masses or ulcerations within the cecum, ascending, transverse, descending and sigmoid colon. Once in the rectum, scope was retroflexed noting no other pathology. Throughout the colon, there was a moderate amount of diverticulosis present. No other pathology noted. Scope was then slowly retracted back until completely removed. The patient tolerated procedure well without any complications. She was taken to recovery room in stable condition. RECOMMENDATIONS: The patient will need repeat colonoscopy in 5 years. Any issues before that be seen at that time. We would also recommended a high fiber diet. Any issues before that be seen at that time. We will add omeprazole 20 mg daily and follow up in 3 weeks. Job ID: [id number] DocumentID: [id number] Dictated Date: 11/27/2019 15:21:49 Corporate Legal Assistant Date: 11/28/2019 02:19:24 Dictated By: KENDAL COLON DO
== END 2019-11-27 15:55 | disposition home or self-care (01) ==
LOC: ENDO 13:03
PROVIDERS: ATTEND Surgery
DX: K21.0 Gastro-esophageal reflux disease with esophagitis (principal); K29.50 Unspecified chronic gastritis without bleeding; K44.9 Diaphragmatic hernia without obstruction or gangrene; K57.30 Diverticulosis of large intestine without perforation or abscess without bleeding; I10 Essential (primary) hypertension; G47.33 Obstructive sleep apnea (adult) (pediatric); M06.9 Rheumatoid arthritis, unspecified; E11.9 Type 2 diabetes mellitus without complications; F32.9 Major depressive disorder, single episode, unspecified; J45.909 Unspecified asthma, uncomplicated; E66.01 Morbid (severe) obesity due to excess calories; Z68.41 Body mass index [BMI] 40.0-44.9, adult; Z79.02 Long term (current) use of antithrombotics/antiplatelets; Z79.82 Long term (current) use of aspirin; Z79.84 Long term (current) use of oral hypoglycemic drugs; Z79.899 Other long term (current) drug therapy; Z79.51 Long term (current) use of inhaled steroids; Z86.010 Personal history of colon polyps; Z80.0 Family history of malignant neoplasm of digestive organs
CPT/HCPCS: 82962; 88305

== ENCOUNTER 2020-07-07 08:00 | Emergency (ER) | payer MEDICARE, MEDICAID ==
[~2020-07-07] VITALS: Ht 162.5 cm; Wt 119.0 kg
[~2020-07-07 08:00] MED LIST changes: -LISI-552 PO; +LISI20TA26 PO; +METH-731 PO; -METH500T7 PO; +OMEP20CA18 PO; +SERT-412 PO; +SERT-413 PO; -SERT25TA5 PO; -SERT50TA9 PO
[2020-07-07] MEDS ORDERED: fentaNYL INJECTION 100 MCG/2 ML AMP IM ONE (08:30)
--- NOTE | 2020-07-07 08:33 | ED Neck-Back Pain/Injury ---
General Chief Complaint: Head/Cervical Problems Stated Complaint: NECK PAIN Nursing Triage Note: AMB TO ROOM REPORTS TRIPPED AND FELL SATURDAY. C/O OF BACK AND NECK PAIN. CONCERN BECAUSE SHE HAS HAD BACK SURG. HAS NOT TAKEN ANYTHING FOR PAIN ONLY TAKEN FLEXERIL Nursing Sepsis Screen: No Definite Risk Source of Information: Patient Exam Limitations: No Limitations History of Present Illness Date Seen by Provider: Jul 07, 2020 Time Seen by Provider: 08:17 Initial Comments This 60-year-old woman presents to the emergency room with complaints of neck pain and lower back pain after having a fall 3 days ago. She has existing spinal disease and has been contemplating cervical fusion at the recommendation of her neurosurgeon. She has previously had a lumbar spinal fusion. She tripped and fell forward on Saturday. She denies any blunt trauma to the head and neck but she has experienced exacerbation of neck pain and lumbar back pain since the fall. She arrives with a neck pillow helping immobilize her neck. She has a very short thick neck that will not allow placement of a c-collar. We are observing manual C-spine precautions. Patient is ambulatory and walked into the emergency room. She denies any new paresthesias or radicular symptoms. She has chronic numbness of the left fifth finger. Dr. Woodard is her spine surgeon. Allergies and Home Medications Allergies Coded Allergies: No Known Drug Allergies (Unverified , 05/03/11) Home Medications Albuterol Sulfate 1 Puff Puff, 2 PUFF IH Q4H PRN for WHEEZING, (Reported) 1 PUFF = 90 MCG Alprazolam 1 Mg Tablet, 1 MG PO BID, (Reported) Aspirin 81 Mg Tab.chew, 81 MG PO DAILY, (Reported) Cetirizine HCl 10 Mg Tablet, 10 MG PO DAILY, (Reported) Ergocalciferol (Vitamin D2) 10 Mcg Tablet, 10 MCG PO DAILY, (Reported) Famotidine 20 Mg Tablet, 20 MG PO BID WITH MEALS, (Reported) Fenofibrate Nanocrystallized 48 Mg Tablet, 48 MG PO DAILY, (Reported) Glipizide 10 Mg Tablet, 10 MG PO BID WITH MEALS, (Reported) Hydrocodone/Acetaminophen 1 Each Tablet, 1 EACH PO Q6H PRN for PAIN-MODERATE (5- 7), (Reported) Insulin Aspart 300 Units/3 Ml Solution, 25 UNITS SQ TIDAC, (Reported) Insulin Detemir 100 Unit/1 Ml Insuln.pen, 54 UNIT SQ BID, (Reported) Lisinopril 20 Mg Tablet, 20 MG PO DAILY, (Reported) Meloxicam 15 Mg Tablet, 15 MG PO DAILY, (Reported) Metformin HCl 500 Mg Tablet, 500 MG PO BID, (Reported) Methocarbamol 500 Mg Tablet, 500 MG PO BID, (Reported) Multivitamin 1 Each Tablet, 1 EACH PO DAILY, (Reported) Gaylord-3/Dha/Epa/Fish Oil 1,000 Mg Capsule, 1,000 MG PO BID, (Reported) Omeprazole 20 Mg Capsule.dr, 20 MG PO DAILY Prescribed by: KENDAL EVANGELISTA on 11/27/19 1517 Pregabalin Unknown Strength Capsule, 500 MG PO BID, (Reported) Sertraline HCl 50 Mg Tablet, 50 MG PO DAILY, (Reported) Simvastatin 80 Mg Tablet, 80 MG PO DAILY, (Reported) Patient Home Medication List Home Medication List Reviewed: Yes Review of Systems Constitutional: no symptoms reported EENTM: no symptoms reported Respiratory: no symptoms reported Cardiovascular: no symptoms reported Gastrointestinal: no symptoms reported Genitourinary: no symptoms reported Musculoskeletal: see HPI Skin: no symptoms reported Psychiatric/Neurological: No Symptoms Reported Past Vmolwfu-Hovfac-Wfhbuv Hx Past Med/Social Hx: Reviewed Nursing Past Med/Soc Hx Patient Social History Alcohol Use: Denies Use Recent Infectious Disease Expo: No Recent Hopitalizations: No Immunizations Up To Date Date of Pneumonia Vaccine: May 06, 2010 Date of Influenza Vaccine: Mar 04, 2016 Seasonal Allergies Seasonal Allergies: Yes Past Medical History Surgeries: Yes (bilat KNEE SCOPE, LEFT KNEE REPLACED, C/S X2, RIGHT BREAST BX, R shoulder, ) Breast, Section, Gallbladder, Joint Replacement, Orthopedic (Lumbar fusion with hardware) Respiratory: Yes (WHOOPING COUGH IN NOVEMBER 2012) Sleep Apnea Currently Using CPAP: No Cardiac: Yes High Cholesterol, Hypertension Neurological: No Reproductive Disorders: 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 0.0oz. 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, Other (Chronic numbness to the left fifth finger) Skin: Normal Color, Warm/Dry Progress/Results/Core Measures Results/Orders My Orders Orders - DORA NASH MD Ct Cervical Spine Wo (07/07/20 08:24) Ct Lumbar Spine Wo (07/07/20 08:24) Fentanyl Injection (Sublimaze Injection (07/07/20 08:30) Medications Given in ED Current Medications Medications Dose Ordered Sig/Wallace Route Start Time Stop Time Status Last Admin Dose Admin Fentanyl Citrate 75 mcg ONCE ONCE IM 07/07/20 08:30 07/07/20 08:31 DC 07/07/20 08:33 75 MCG Vital Signs/I&O 07/07/20 08:04 Temp 35.9 Pulse 100 Resp 18 B/P (MAP) 142/82 (102) Pulse Ox 95 O2 Delivery Room Air Blood Pressure Mean: 102 Progress Progress Note #1: Time: 08:31 Progress Note Patient seen and examined. She has no new focal neurologic deficits. She has tenderness over the cervical and lumbar spine. CT imaging of the cervical and lumbar spine has been ordered. She is receiving a fentanyl injection to help her lie flat for the imaging studies. She is going to CT with manual C-spine precautions being observed. Progress Note #2: Time: 09:[address] imaging revealed no acute injuries. Patient declined anything further for pain management. She was advised to follow-up with her spine surgeon as soon as possible. Diagnostic Imaging Diagonstic Imaging: CT Plain Films/CT/US/NM/MRI: other Comments CT lumbar spine viewed by me and report reviewed. See report below: NAME: [facility] REC#: [id number] PT STATUS: REG ER : 1960 PHYSICIAN: DORA NASH MD ADMIT DATE: 07/07/20/ER Draft Date of Exam:07/07/20 CT LUMBAR SPINE WO PROCEDURE: CT lumbar spine without contrast. TECHNIQUE: Multiple contiguous axial images were obtained through the lumbar spine without the use of intravenous contrast. Sagittal and coronal reformations were then performed. Auto Exposure Controls were utilized during the CT exam to meet ALARA standards for radiation dose reduction. INDICATION: Back injury from a fall There are postsurgical changes from posterior discectomy fusion at L3-L4, L4-L5 and L5-S1. The patient has cages placed at those 2 levels and bi-pedicular screws at those levels. The hardware appears to be intact. There is advanced degenerative disc changes at L2-L3. There is no acute fracture seen. IMPRESSION: Postsurgical changes from discectomy fusion L3-S1. Degenerative disc changes noted at L2-L3. No acute abnormality seen. Dictated on workstation # [id number] Dict: 07/07/20919 Trans: 07/07/20 0938 [facility] [id number] Interpreted by: DONALD CAMACHO MD Diagonstic Imaging: CT Plain Films/CT/US/NM/MRI: c-spine Comments CT cervical spine viewed by me and report reviewed. See report below: NAME: [facility] REC#: [id number] PT STATUS: REG ER : 1960 PHYSICIAN: DORA NASH MD ADMIT DATE: 07/07/20/ER Draft Date of Exam:07/07/20 CT CERVICAL SPINE WO PROCEDURE: CT cervical spine without contrast. TECHNIQUE: Multiple contiguous axial images were obtained through the cervical spine without the use of intravenous contrast. Sagittal and coronal reformations were then performed. Auto Exposure Controls were utilized during the CT exam to meet ALARA standards for radiation dose reduction. INDICATION: Neck injury from a fall. There is reversal of the lordotic curvature of the cervical spine. There is a very slight spondylolisthesis at C3-C4. This appears to be physiologic. There are degenerative disc changes at C3-C4, C4-C5, C5-C6 and C6-C7. There are severe degenerative changes of the uncovertebral joints bilaterally at C2-C3. The uncovertebral joints appear to be fused. There is no acute fracture seen. The odontoid is intact. IMPRESSION: Degenerative changes of the discs and uncovertebral joints. There is no acute abnormality seen. Dictated on workstation # [id number] Dict: 07/07/20917 Trans: 07/07/20924 [facility] [id number] Interpreted by: DONALD CAMACHO MD Departure Impression Primary Impression: Fall on same level Qualified Codes: W18.30XA - Fall on same level, unspecified, initial encounter Additional Impressions: Neck pain Low back pain Qualified Codes: M54.5 - Low back pain Disposition: 01 HOME, SELF-CARE Condition: Improved Departure-Patient Inst. Decision time for Depature: 09:51 Referrals: [facility] ([place]) Primary Care Physician AYLIN PURVIS (Family) Primary Care Physician Patient Instructions: Low Back Pain (DC) Add. Discharge Instructions: You may take Tylenol (acetaminophen) up to 1000 mg every 6 hours as needed and ibuprofen up to 600 mg every 6 hours as needed for treatment of pain. Gentle heat may help relax stiff muscles. Follow-up with your spine surgeon as soon as possible. Return to the emergency room if you have worsening symptoms, especially if you develop weakness of the extremities, numbness of the extremities, numbness in the groin, or difficulty controlling bowels or bladder. Call with questions or concerns. All discharge instructions reviewed with patient and/or family. Voiced understanding. Copy Copies To 1: BESSIE KERNS JOSHUA T MD Jul 07, 2020 08:32
--- NOTE | 2020-07-07 09:25 | Diagnostic Imaging Report ---
PROCEDURE: CT cervical spine without contrast. TECHNIQUE: Multiple contiguous axial images were obtained through the cervical spine without the use of intravenous contrast. Sagittal and coronal reformations were then performed. Auto Exposure Controls were utilized during the CT exam to meet ALARA standards for radiation dose reduction. INDICATION: Neck injury from a fall. There is reversal of the lordotic curvature of the cervical spine. There is a very slight spondylolisthesis at C3-C4. This appears to be physiologic. There are degenerative disc changes at C3-C4, C4-C5, C5-C6 and C6-C7. There are severe degenerative changes of the uncovertebral joints bilaterally at C2-C3. The uncovertebral joints appear to be fused. There is no acute fracture seen. The odontoid is intact. IMPRESSION: Degenerative changes of the discs and uncovertebral joints. There is no acute abnormality seen. Dictated by: Dictated on workstation # [id number]
--- NOTE | 2020-07-07 09:39 | Diagnostic Imaging Report ---
PROCEDURE: CT lumbar spine without contrast. TECHNIQUE: Multiple contiguous axial images were obtained through the lumbar spine without the use of intravenous contrast. Sagittal and coronal reformations were then performed. Auto Exposure Controls were utilized during the CT exam to meet ALARA standards for radiation dose reduction. INDICATION: Back injury from a fall There are postsurgical changes from posterior discectomy fusion at L3-L4, L4-L5 and L5-S1. The patient has cages placed at those 2 levels and bi-pedicular screws at those levels. The hardware appears to be intact. There is advanced degenerative disc changes at L2-L3. There is no acute fracture seen. IMPRESSION: Postsurgical changes from discectomy fusion L3-S1. Degenerative disc changes noted at L2-L3. No acute abnormality seen. Dictated by: Dictated on workstation # [id number]
[2020-07-07 09:56] VITALS: BP 110/62
== END 2020-07-07 09:56 | disposition home or self-care (01) ==
LOC: EDUNIT# 08:00 → ER 08:02
DX: M54.2 Cervicalgia (principal); M54.5 Low back pain; E78.00 Pure hypercholesterolemia, unspecified; I10 Essential (primary) hypertension; K21.9 Gastro-esophageal reflux disease without esophagitis; G89.29 Other chronic pain; M54.9 Dorsalgia, unspecified; E11.9 Type 2 diabetes mellitus without complications; F32.9 Major depressive disorder, single episode, unspecified; Z79.891 Long term (current) use of opiate analgesic; Z79.4 Long term (current) use of insulin; Z79.82 Long term (current) use of aspirin
CPT/HCPCS: 72125; 72131

== ENCOUNTER → 2020-11-16 | Outpatient (CLI) | payer MEDICARE, MEDICAID ==
--- NOTE | 2020-11-16 09:05 | Diagnostic Imaging Report ---
INDICATION: Routine screening. Comparison is made with prior mammogram 11/16/2019 and 07/22/2018. 2-D and 3-D bilateral screening mammography was performed with CAD. Both breasts are heterogeneously dense, limiting the sensitivity of mammography. The parenchymal pattern is stable. No mass or malignant appearing microcalcifications are seen. Axillae are unremarkable. IMPRESSION: BI-RADS Category 1 No mammographic features suspicious for malignancy are identified. ACR BI-RADS Category 1: Negative. Result letter will be mailed to the patient. Note: At least 10% of breast cancer is not imaged by mammography. Dictated by: Dictated on workstation # [id number]
== END ==
LOC: RAD 07:45
PROVIDERS: ATTEND Physician Assistant
DX: Z12.31 Encounter for screening mammogram for malignant neoplasm of breast (principal)
CPT/HCPCS: 77063; 77067

== ENCOUNTER → 2021-07-11 | Outpatient (CLI) | payer MEDICARE, MEDICAID ==
[~2021-07-11] VITALS: Ht 162 cm; Wt 110.0 kg
[~2021-07-11] MED LIST changes: +CATHETER FLUSH 10 ML SYR IVP PRN; -FENO48TA10 PO; +FENO48TA11 PO; +REGADENOSON 0.4 MG/5 ML SYR (LEXISCAN) IV ONE
[2021-07-11 12:41] VITALS: BP 131/74
--- NOTE | 2021-07-11 19:55 | STRESS TEST ---
DATE OF SERVICE: 07/11/2021 RESTING AND POST REGADENOSON TECHNETIUM-99M TETROFOSMIN SPECT CT IMAGING CLINICAL DIAGNOSIS: Chest discomfort. ORDERING PHYSICIAN: Josie Quinones APRN PRIMARY PHYSICIAN: [facility]. Baseline images were carried out after injection of 10.66 mCi of technetium-99m Tetrofosmin. This was followed by 0.4 mg regadenoson and 29.6 mCi of technetium-99m Tetrofosmin for stress imaging. The electrocardiogram showed sinus rhythm at baseline. It did not change significantly with the regadenoson infusion. The patient noted some shortness of breath following regadenoson infusion, which resolved in a few minutes. Overall, she tolerated the procedure well. Review of images at rest and following stress does not indicate any significant perfusion defects consistent with significant myocardial ischemia or infarction. Some degree of breast attenuation is seen in the anteroseptal wall, both at rest and following regadenoson infusion. Gated images show normal global left ventricular systolic function with normal regional wall motion, including the anteroseptal wall of the left ventricle. Left ventricular ejection fraction calculated to be 83%. CONCLUSIONS: 1. No evidence of any significant myocardial ischemia or infarction on this study. 2. Normal regional wall motion. 3. Normal to hyperdynamic left ventricular systolic function with a calculated ejection fraction of 83%. Job ID: [id number] DocumentID: [id number] Dictated Date: 07/11/2021 18:14:59 Marketing Support Assistant Date: 07/11/2021 19:54:17 Dictated By: ANGELA CERVANTES MD, MA, FACP, FACC,
== END ==
LOC: CARD 11:00
PROVIDERS: ATTEND Nurse Practitioner Family
DX: R07.89 Other chest pain (principal); R06.09 Other forms of dyspnea
CPT/HCPCS: 78452; 93017; 93306

== ENCOUNTER → 2022-02-26 | Outpatient (CLI) | payer MEDICARE, MEDICAID ==
[~2022-02-26] VITALS: Ht 162.6 cm; Wt 110.0 kg
[~2022-02-26] MED LIST changes: -CATHETER FLUSH 10 ML SYR IVP PRN; +LIDOCAINE 1% INJ 10 ML VIAL INJ ONE; -REGADENOSON 0.4 MG/5 ML SYR (LEXISCAN) IV ONE
--- NOTE | 2022-02-26 11:23 | Diagnostic Imaging Report ---
INDICATION: Right breast mass. Patient presents for ultrasound guided biopsy. Patient brought to the sonographic suite and placed on table in supine position. Ultrasound imaging of the right breast was performed to evaluate appropriate entry site. Right breast was then prepped and draped in usual sterile fashion. Small amount of 1% lidocaine was utilized for local anesthesia. Total of 4 core biopsies were made of a hypoechoic mass at 11:00 location of the right breast, 6 cm from the nipple utilizing 14-gauge achieve needle. A marker clip was deployed. Hemostasis was obtained using manual compression. Patient tolerated procedure well and was sent for postprocedure mammogram in satisfactory condition. IMPRESSION: Successful ultrasound-guided biopsy of the right breast hypoechoic nodule 11:00 location, 6 cm from the nipple. Pathology results are currently pending. Dictated by: Dictated on workstation # [id number]
--- NOTE | 2022-02-26 12:09 | Diagnostic Imaging Report ---
Indication: Right breast nodule. Patient status post ultrasound-guided biopsy. Unilateral right 2-D CC and ML mammography was performed. There is a marker clip in the upper and outer aspect of the right breast anterior to mid depth. IMPRESSION: Marker clip placement. Patient status post ultrasound-guided right breast biopsy. Dictated by: Dictated on workstation # [id number]
== END ==
LOC: RAD 08:29
PROVIDERS: ATTEND Nurse Practitioner Family
DX: N63.11 Unspecified lump in the right breast, upper outer quadrant (principal)
CPT/HCPCS: 19083

== ENCOUNTER → 2022-05-25 | Outpatient (CLI) | payer MEDICARE, MEDICAID ==
[~2022-05-25] MED LIST changes: +ALBU8.5H6 IH; -LIDOCAINE 1% INJ 10 ML VIAL INJ ONE; -RT-ALBUINH IH
--- NOTE | 2022-05-25 12:51 | Diagnostic Imaging Report ---
EXAMINATION: Magnetic resonance imaging of the left shoulder without contrast. DATE: May 25, 2022. COMPARISON: None. HISTORY: 62-year-old female, shoulder pain. TECHNIQUE: Magnetic Resonance Imaging sequences were performed of the shoulder without contrast. FINDINGS: ROTATOR CUFF, LIGAMENTS, TENDONS, AND MUSCLES: There is a 4 mm wide approximately 33% partial thickness interstitial tear of infraspinatus. There is an intramuscular ganglion cyst tracking along the myotendinous junction of infraspinatus measuring 15 x 8 x 19 mm in size. There is supraspinatus tendinopathy. The teres minor tendon is intact. The subscapularis tendon is intact. There is normal rotator cuff muscle bulk and signal. LONG HEAD OF BICEPS: The biceps labral attachment and long head of the biceps tendon is intact. The long head of the biceps tendon is normally positioned within the bicipital groove. There is fluid in the biceps tendon sheath which may potentially reflect normal glenohumeral joint communication. GLENOHUMERAL JOINT: The humeral head is well positioned relative to the glenoid. There is no discretely identified labral tear. There is no identified paralabral cyst. There are broad areas of full-thickness glenohumeral cartilage loss of qkbb-ta-vwny articulation. There are very small subchondral cystic changes. There are osteophytes extending off the inferior aspect of the humeral head. There is a moderate sized glenohumeral joint effusion. ACROMIOCLAVICULAR JOINT: The acromioclavicular joint is normally aligned. The coracoclavicular and coracoacromial ligaments are intact. There are mild acromio clavicular degenerative changes without large undersurface osteophyte. BONE: There is no os acromiale. There is no Hill-Sachs deformity. There is no acute fracture, bone contusion, or evidence of osteonecrosis. BURSAE AND SOFT TISSUES: There is a nonspecific right T2 hyperintense nodule in the subcutaneous tissues superior to the lateral clavicle measuring 6 mm in size. IMPRESSION: 1. Approximately 33% partial thickness interstitial tear of the infraspinatus tendon measuring 4 mm with associated intramuscular ganglion cyst. 2. Supraspinatus tendinopathy. 3. Intact proximal long head of biceps tendon. 4. Severe glenohumeral arthritis with moderate sized glenohumeral joint effusion. 5. Mild acromioclavicular degenerative changes without large undersurface osteophyte. 6. No acute fracture, bone contusion, or evidence of osteonecrosis. 7. Nonspecific 6 mm subcutaneous nodule superior to the lateral clavicle. Dictated on workstation # [id number]
== END ==
LOC: RAD 10:15
PROVIDERS: ATTEND Nurse Practitioner
DX: M75.112 Incomplete rotator cuff tear or rupture of left shoulder, not specified as traumatic (principal); M67.412 Ganglion, left shoulder; M19.012 Primary osteoarthritis, left shoulder; R22.2 Localized swelling, mass and lump, trunk
CPT/HCPCS: 73221